=== PATIENT | female | born 1995 | race African-American/Black ===

== ENCOUNTER 2016-12-28 21:30 | Inpatient (IN) | payer BC, OTHER ==
--- NOTE | 2016-12-28 23:59 | PDOC ---
*Physical Exam - Vital Signs Last Vital Signs Temp Pulse Resp BP Pulse Ox 99.5 F 119 H 20 102/45 98 12/28/16 21:31 12/28/16 21:31 12/28/16 21:31 12/28/16 21:31 12/28/16 21:31 - Physical Exam Comments: 12/28/16 23:58 Patient is a 21 year old male Medical Decision Making - Medical Decision Making 12/28/16 23:59 21 year old male
[2016-12-29] MEDS ORDERED: ONDANSETRON 4 MG/2 ML VIAL IVPB ONE (00:45)
[2016-12-29] MEDS ORDERED: SODIUM CHLORIDE 1,000 ML IV STA ×2 (00:45→03:00)
[2016-12-29] MEDS ORDERED: HYDROmorphone HCL CARPU-JECT 1 MG/1 ML DISP.SYRIN IVPUSH ONE ×2 (00:45→04:56)
--- NOTE | 2016-12-29 00:45 | PDOC ---
History of Present Illness - General History Source: Patient Exam Limitations: No Limitations - History of Present Illness Initial Comments: 12/29/16 02:02 Patient is a 21F with no significant medical history here today complaining of lower abdominal pain and diarrhea for the past week. She states that she went to [facility] 6 days ago with the complaints, where she was given an unknown antibiotic. She states that she's been having 6-7 episodes of diarrhea and decreased PO intake. She states that she has vomited twice. She states that starting today, she had an episode of diarrhea with bright red blood in it. <Anthony Talley - Last Filed: 12/29/16 06:27> <Marisela Portillo - Last Filed: 12/29/16 06:36> - General Chief Complaint: Pain Stated Complaint: LOWER ABD PAIN Time Seen by Provider: 12/28/16 23:55 Past History - Past Medical History Other medical history: denies - Psycho/Social/Smoking Cessation Hx Suicidal Ideation: No Smoking History: Never smoked <Anthony Talley - Last Filed: 12/29/16 06:27> <Marisela Portillo - Last Filed: 12/29/16 06:36> - Past Medical History Allergies/Adverse Reactions: Allergies Allergy/AdvReac Type Severity Reaction Status Date / Time No Known Allergies Allergy Verified 12/28/16 21:37 Review of Systems - Review of Systems Constitutional: Yes: Chills, Fever HEENTM: No: Blurred Vision, Recent change in vision Respiratory: No: Cough, Shortness of Breath Cardiac (ROS): No: Chest Pain, Palpitations ABD/GI: Yes: Diarrhea, Nausea, Vomiting. No: Constipated : No: Burning, Dysuria Musculoskeletal: Yes: Back Pain. No: Joint Pain Neurological: Yes: Weakness. No: Headache <Anthony Talley - Last Filed: 12/29/16 06:27> *Physical Exam - Vital Signs Last Vital Signs Temp Pulse Resp BP Pulse Ox 99.5 F 119 H 20 102/45 98 12/28/16 21:31 12/28/16 21:31 12/28/16 21:31 12/28/16 21:31 12/28/16 21:31 - Physical Exam Comments: 12/29/16 02:13 GENERAL: Awake, alert, and fully oriented, in no acute distress HEAD: No signs of trauma, normocephalic, atraumatic EYES: PERRLA, EOMI ENT: Auricles normal inspection, hearing grossly normal, nares patent, dry appearing mucosa LUNGS: No distress, speaks full sentences, clear to auscultation bilaterally HEART: Regular rate and rhythm, normal S1 and S2, no murmurs, rubs or gallops, peripheral pulses normal and equal bilaterally. ABDOMEN: Tender to palpation in suprapubic area. Voluntary guarding, no rebound tenderness EXTREMITIES: Normal inspection, Normal range of motion, no edema. NEUROLOGICAL: Cranial nerves II through XII grossly intact. Normal speech, no focal sensorimotor deficits SKIN: Warm, Dry, normal turgor, no rashes or lesions noted. 12/29/16 03:04 RECTAL: Small hemorrhoid, small amount of blood seen on glove, no masses, nontender <Anthony Talley - Last Filed: 12/29/16 06:27> - Vital Signs Last Vital Signs Temp Pulse Resp BP Pulse Ox 99.5 F 119 H 20 102/45 98 12/28/16 21:31 12/28/16 21:31 12/28/16 21:31 12/28/16 21:31 12/28/16 21:31 <Marisela Portillo - Last Filed: 12/29/16 06:36> ED Treatment Course - LABORATORY CBC & Chemistry Diagram: 12/29/16 01:33 12/29/16 01:33 <Anthony Talley - Last Filed: 12/29/16 06:27> - LABORATORY CBC & Chemistry Diagram: 12/29/16 01:33 12/29/16 01:33 - ADDITIONAL ORDERS Additional order review: Laboratory Results 12/29/16 12/29/16 12/29/16 03:59 02:00 01:33 INR 1.61 H Sodium Potassium Chloride Carbon Dioxide Anion Gap BUN Creatinine Creat Clearance w eGFR Random Glucose Lactic Acid 0.9 Calcium Total Bilirubin AST ALT Alkaline Phosphatase Total Protein Albumin Lipase Urine Color Urine Appearance Urine pH Urine Protein Urine Glucose (UA) Urine Ketones Urine Blood Urine Nitrite Urine Bilirubin Urine Urobilinogen Ur Leukocyte Esterase Urine RBC Urine WBC Ur Epithelial Cells Urine Bacteria Urine HCG, Qual Stool Occult Blood Trace 12/29/16 12/29/16 12/29/16 01:33 01:33 01:33 INR Sodium 132 L Potassium 3.5 Chloride 95 L Carbon Dioxide 24 Anion Gap 13 BUN 8 Creatinine 0.7 Creat Clearance w eGFR > 60 Random Glucose 94 Lactic Acid Calcium 8.0 L Total Bilirubin 0.7 AST 13 L ALT 9 L Alkaline Phosphatase 61 Total Protein 6.8 Albumin 2.8 L Lipase 252 Urine Color Ltyellow Urine Appearance Clear Urine pH 6.0 Urine Protein Negative Urine Glucose (UA) Negative Urine Ketones 1+ H Urine Blood 2+ H Urine Nitrite Negative Urine Bilirubin Negative Urine Urobilinogen Negative Ur Leukocyte Esterase 2+ H Urine RBC 1 Urine WBC 4 Ur Epithelial Cells Rare Urine Bacteria Few Urine HCG, Qual Negative Stool Occult Blood 12/29/16 01:33 RBC 3.73 MCV 86.4 MCHC 32.9 RDW 15.6 MPV 9.4 Neutrophils % 82.1 Lymphocytes % 5.7 L Monocytes % 11.1 H Eosinophils % 1.0 Basophils % 0.1 - Medications Given in the ED: ED Medications Discontinued Medications Generic Name Dose Route Start Last Admin Trade Name Freq PRN Reason Stop Dose Admin Hydromorphone HCl 0.5 mg 12/29/16 00:45 12/29/16 01:31 Dilaudid Injection - IVPUSH 12/29/16 00:46 0.5 mg ONCE ONE Administration Sodium Chloride 1,000 mls @ 1,000 mls/hr 12/29/16 00:45 12/29/16 01:31 Normal Saline - IV 12/29/16 01:44 1,000 mls/hr ASDIR STA Administration Sodium Chloride 1,000 mls @ 1,000 mls/hr 12/29/16 03:00 12/29/16 03:09 Normal Saline - IV 12/29/16 03:59 1,000 mls/hr ASDIR STA Administration Ondansetron HCl 4 mg 12/29/16 00:45 12/29/16 01:31 Zofran Injection IVPB 12/29/16 00:46 4 mg ONCE ONE Administration <Marisela Portillo - Last Filed: 12/29/16 06:36> Medical Decision Making - Medical Decision Making 12/29/16 02:15 21F with no significant medical history here today complaining of abdominal pain. Tachycardic, and tachypneic. Differential diagnosis includes: UTI, pyelonephritis, and colitis. Will evaluate with CBC, CMP, and UA initially. Will give 1L of NS, zofran and dilaudid for pain. 12/29/16 02:43 CBC shows a white count of 12. UA shows 2+ LE but <[address] abdomen/pelvis with contrast ordered. 12/29/16 03:03 Rectal exam showed trace amount of blood and small hemorrhoid. 12/29/16 06:27 CT showed colitis. Will admit to medicine. <Anthony Talley - Last Filed: 12/29/16 06:27> *DC/Admit/Observation/Transfer <Anthony Talley - Last Filed: 12/29/16 06:27> - Discharge Dispostion Admit: Yes <Marisela Portillo - Last Filed: 12/29/16 06:36> Diagnosis at time of Disposition: Colitis, Rectal bleeding - Discharge Dispostion Condition at time of disposition: Guarded
[2016-12-29] MEDS ORDERED: HYDROmorphone HCL CARPU-JECT 1 MG/1 ML DISP.SYRIN ONE ×2 (01:05→06:30)
[2016-12-29] MEDS ORDERED: ONDANSETRON 4 MG/2 ML VIAL ONE (01:05)
--- NOTE | 2016-12-29 01:12 | PDOC ---
Attending Attestation - HPI HPI: The patient is a 21 yo F with no significant past medical history who presents with lower abdominal pain, diarrhea, and vomiting for 1 week. The patient states she went to [facility] on Friday with diarrhea and abdominal pain and was diagnosed with food poisoning and prescribed an antibiotic. The patient states her symptoms have not resolved. The patient reports 6-7 episodes of diarrhea today. She also endorses nausea and vomiting x2. The patient reports she had a fever of 102.3 a few days ago. The patient also reports her most recent episodes of diarrhea today had bright red blood. The patient denies mckeon tarry stools. The patient states she was also prescribed something for pain. The patient denies chest pain, palpitations and lightheadedness. The patient denies subjective chills. - Medical Decision Making Documentation prepared by Brook Stevenson, acting as medical reception specialist for Sadia Kurtz MD, /DO. <Brook Stevenson - Last Filed: 12/29/16 01:36> - Resident Resident Name: Anthony Talley - ED Attending Attestation I have performed the following: I have examined & evaluated the patient, The case was reviewed & discussed with the resident, I agree w/resident's findings & plan, Exceptions are as noted - Physicial Exam PE: GENERAL: Awake, alert, and fully oriented. Appears uncomfortable. +Mild pallor. HEAD: No signs of trauma EYES: PERRLA, EOMI, sclera anicteric, conjunctiva clear ENT: Auricles normal inspection, hearing grossly normal, nares patent, oropharynx clear without exudates. Dry mucosa NECK: Normal ROM, supple, no lymphadenopathy, JVD, or masses LUNGS: Breath sounds equal, clear to auscultation bilaterally. No wheezes, and no crackles HEART: Regular rate and rhythm, normal S1 and S2, no murmurs, rubs or gallops ABDOMEN: Soft, diffusely tender, worse in BLQ, +hyperactive bowel sounds. + Guarding, no rebound. No masses. +B/L CVAT. EXTREMITIES: Normal range of motion, no edema. No clubbing or cyanosis. No cords, erythema, or tenderness NEUROLOGICAL: Cranial nerves II through XII grossly intact. Normal speech, normal gait SKIN: Warm, Dry, normal turgor, no rashes or lesions noted. - Medical Decision Making Pt presents with diarrhea, diffuse abdominal pain for the past few days. Intermittent fever. She was treated with abx for (?) food poisoning at an outside hospital. She cannot recall the name of the antibiotic. She has worsened since then, and now has noted bloody stools. Exam with diffuse abd tenderness. +Small hemorrhoid at the 12 o'clock position, trace blood on rectal exam. UA with no significant findings. Awaiting labs and CT a/p, possible colitis. <Sadia Kurtz - Last Filed: 12/29/16 03:52>
[2016-12-29 01:54] LABS: BASOPHIL 0.1 % (0-2.0); MCH 28.5 pg (25.7-33.7); MCHC 32.9 g/dl (32.0-36.0); MEAN CELL VOLUME 86.4 fl (80-96); MEAN PLT VOLUME 9.4 fl (7.5-11.1); NEUTROPHILS 82.1 % (42.8-82.8); PLATELET COUNT 224 K/MM3 (134-434); RDW 15.6 % (11.6-15.6); WHITE BLOOD COUNT 12.2 K/mm3 (4.0-10.0)
[2016-12-29 01:57] LABS: URINE APPEARANCE CLEAR; URINE BILIRUBIN NEGATIVE (NEGATIVE); URINE BLOOD 2+ (NEGATIVE); URINE COLOR LTYELLOW; URINE GLUCOSE (UA) NEGATIVE (NEGATIVE); URINE KETONE 1+ (NEGATIVE); URINE NITRITE NEGATIVE (NEGATIVE); URINE PROTEIN NEGATIVE (NEGATIVE); URINE UROBILINOGEN NEGATIVE mg/dL (0.2-1.0)
[2016-12-29 02:00] LABS: URINE LEUK ESTERASE 2+ (NEGATIVE)
[2016-12-29 02:09] LABS: URINE BACTERIA FEW /hpf (NONE SEEN); URINE RBC 1 /hpf (0-3); URINE WBC 4 /hpf (3-5)
[2016-12-29 02:11] LABS: INR 1.61 (0.82-1.09); PROTHROMBIN TIME (PATIENT) 17.9 SEC (9.98-11.88)
[2016-12-29 02:21] LABS: ALBUMIN 2.8 g/dl (3.4-5.0); ALK PHOS 61 U/L (45-117); ANION GAP 13 (8-16); BILIRUBIN,TOTAL 0.7 mg/dL (0.2-1.0); CO2 24 mmol/L (21-32); CREATININE 0.7 mg/dL (0.55-1.02); GLUCOSE,RANDOM 94 mg/dL (74-106); SGOT/AST 13 U/L (15-37); SGPT/ALT 9 U/L (12-78); TOT PROT 6.8 g/dl (6.4-8.2)
[2016-12-29 03:55] LABS: PLATELET COMMENT2 NO CLOTTING DETECTED; PLATELET ESTIMATE ADEQUATE (NORMAL)
[2016-12-29] MEDS ORDERED: METRONIDAZOLE 500 MG PREMIXED 100 ML IVPB ONE ×2 (05:56→06:30)
[2016-12-29] MEDS ORDERED: LEVOFLOXACIN 500 MG IVPB 100 ML IVPB ONE ×3 (05:57→14:00)
--- NOTE | 2016-12-29 08:50 | HP ---
CHIEF COMPLAINT: Abdominal pain, hematochezia and fever PCP: HISTORY OF PRESENT ILLNESS: 21 yr old woman with no significant pmhx presents to ED with abdominal pain, dairrhea, hematochezia and fever. Was seen at [facility] on Friday for similar complaint that started after eating at [employer] on friday. symptoms started Friday night, no one else who ate with her has similar complaints. [facility] prescribed 7-day course of antibiotics, which she finished. doesn't recall the name. When her symptoms did not improve, she came to [facility]. Abdominal pain is diffuse and continuous, no exacerbating or alleviating factors. Blood was bright red with wiping and on the outside the stool, at times mixed in, it did not fill the toilet bowl. denies vomiting, sob, previous episodes. ER course was notable for: (1) abd/pelvic CT (2) lactic acid 0.9, bld cx drawn (3) levoquin + flagyl 1 dose (4) no lactic acidosis PAST MEDICAL HISTORY: none PAST SURGICAL HISTORY: Mirena inserted Social History: Smoking: denies Alcohol: socially every 2 months Drugs: denies Family History: denies FM of GI dx, cancers, HTN, DM Allergies No Known Allergies Allergy (Verified 12/28/16 21:37) HOME MEDICATIONS: REVIEW OF SYSTEMS CONSTITUTIONAL: Present:fever, Absent: chills, diaphoresis, generalized weakness, malaise, loss of appetite, weight change HEENT: Absent: rhinorrhea, nasal congestion, throat pain, throat swelling, difficulty swallowing, mouth swelling, CARDIOVASCULAR: Absent: chest pain, syncope, palpitations, irregular heart rate, lightheadedness , peripheral edema RESPIRATORY: Absent: cough, shortness of breath GASTROINTESTINAL: Present: abdominal pain, diarrhea, hematochezia Absent: abdominal distension, nausea, vomiting, constipation, melena, GENITOURINARY: Absent: dysuria, frequency, urgency, hesitancy, hematuria, flank pain, genital pain SKIN: Absent: rash, itching, pallor NEUROLOGIC: Absent: headache, focal weakness, dizziness, PHYSICAL EXAMINATION Vital Signs - 24 hr 12/29/16 07:42 Temperature 98.6 F Pulse Rate [ 90 Left] Respiratory 18 Rate Blood Pressure 106/60 [Left Arm] O2 Sat by Pulse 98 Oximetry (%) GENERAL: Awake, alert, and fully oriented, in no acute distress. ABDOMEN: Soft, ttp in right and left lower quadrants and suprapubically, not distended, normoactive bowel sounds, no guarding, no rebound, no masses. obturator and psoas negative ASSESSMENT/PLAN: 21 y old woman presents with hematochezia, dairrgea and abdominal pain admitted for sepsis likely due to colitis. #Colitis - inflammatory changes seen on abd/pelvis CT, clinically withe diarrhea /abd pain, hematochezia + fever + tachycardia - likely infectious in nature due to onset after meal/fever, r/o stool pathogens , send stool cultures, bld cultures pending - IVF @ NS 150cc/hr - tylenol 650mg po for fevers/pain, will escalate pain meds if needed - levaquin 500mg IVPB Q24hr, + flagyl 500mg q8hr - [place] [facility] is closed, unable to obtain abx/meds, will call again tomorrow #Anemia, normocytic - pt is not menstruating for past yr since mirena, unlikely that this is her baseline, will try to obtain records from [facility] to compare trend - trend CBC, monitor for acute drop in H/H due to hematochezia, get type and screen with next blood draw #Leuk 3+ in urine - pt denies symptoms of UTI, could be due to dehydration, will repeat u/a - urine cultures will be obtained after abx, but she will be on abx for colitis which should cover her anyway for any UTI DVT: heparin SQ 5000 units BID Diet: start with clears, advance as tolerated Visit type - Emergency Visit Emergency Visit: Yes ED Registration Date: 12/29/16 Care time: The patient presented to the Emergency Department on the above date and was hospitalized for further evaluation of their emergent condition. - New Patient This patient is new to me today: Yes Date on this admission: 12/29/16 - Critical Care Critical Care patient: No
[2016-12-29] MEDS ORDERED: ACETAMINOPHEN 650 MG/20.3 ML ORAL SOLUTION (CUPS) PO ONE (09:30)
[2016-12-29] MEDS: SODIUM CHLORIDE 1,000 ML IV SCH ×3 (09:49→23:27)
[2016-12-29] MEDS: HEPARIN NA (PORCINE) 5,000 UNITS/ML 1ML VIAL SQ SCH ×2 (10:15→21:29)
--- NOTE | 2016-12-29 10:30 | HP ---
CHIEF COMPLAINT: diarrhea for 1 week PCP: HISTORY OF PRESENT ILLNESS: 21 y/o F with no significant PMH presents to ED with diarrhea for 1 week. As per pt, she ate at [employer] last (12/19). On Friday, she started having bloody bowel movements (7-8x daily), and felt nauseous during this time. She noted BRB on toilet paper when wiping and in toilet bowl. On Friday, pt went to [facility] since her symptoms had not subsided, and was dx there with food poisoning. She was discharged with antibiotics and pain medications, which she took for the subsequent 3 days following. This past (12/26), pt began to have cramping in her lower abdomen which was constant and a 10/10. Pt's LMP was 1 year ago, she is currently on Mirena IUD. ER course was notable for: (1) CT abdomen/pelvis: suggestive of colitis (2) Dilaudid 0.5mg IVP given twice (3) Levaquin, Flagyl for broad spectrum coverage Recent Travel: no PAST MEDICAL HISTORY: none PAST SURGICAL HISTORY: none Social History: Smoking: denies Alcohol: socially; once every 2 months, 2 drinks Drugs: denies Family History: none Allergies No Known Allergies Allergy (Verified 12/28/16 21:37) HOME MEDICATIONS: REVIEW OF SYSTEMS CONSTITUTIONAL: +tactile fever Absent: fever, chills, diaphoresis, generalized weakness, malaise, loss of appetite, weight change HEENT: Absent: rhinorrhea, nasal congestion, throat pain, throat swelling, difficulty swallowing, mouth swelling, ear pain, eye pain, visual changes CARDIOVASCULAR: Absent: chest pain, syncope, palpitations, irregular heart rate, lightheadedness , peripheral edema RESPIRATORY: Absent: cough, shortness of breath, dyspnea with exertion, orthopnea, wheezing, stridor, hemoptysis GASTROINTESTINAL: +abdominal pain, +diarrhea, +hematochezia Absent: abdominal pain, abdominal distension, nausea, vomiting, diarrhea, constipation, melena, hematochezia GENITOURINARY: Absent: dysuria, frequency, urgency, hesitancy, hematuria, flank pain, genital pain MUSCULOSKELETAL: Absent: myalgia, arthralgia, joint swelling, back pain, neck pain SKIN: Absent: rash, itching, pallor HEMATOLOGIC/IMMUNOLOGIC: Absent: easy bleeding, easy bruising, lymphadenopathy, frequent infections ENDOCRINE: Absent: unexplained weight gain, unexplained weight loss, heat intolerance, cold intolerance NEUROLOGIC: Absent: headache, focal weakness or paresthesias, dizziness, unsteady gait, seizure, mental status changes, bladder or bowel incontinence PSYCHIATRIC: Absent: anxiety, depression, suicidal or homicidal ideation, hallucinations. PHYSICAL EXAMINATION Vital Signs - 24 hr 12/29/16 07:42 Temperature 98.6 F Pulse Rate [ 90 Left] Respiratory 18 Rate Blood Pressure 106/60 [Left Arm] O2 Sat by Pulse 98 Oximetry (%) GENERAL: Awake, alert, and fully oriented, in no acute distress. HEAD: Normal with no signs of trauma. EYES: Pupils equal, round and reactive to light, extraocular movements intact, sclera anicteric, conjunctiva clear. EARS, NOSE, THROAT: oropharynx clear without exudates. Moist mucous membranes. NECK: Normal range of motion, supple without lymphadenopathy, no JVD LUNGS: Breath sounds equal, clear to auscultation bilaterally. No wheezes, and no crackles. No accessory muscle use. HEART: Regular rate and rhythm, normal S1 and S2 without murmur, rub or gallop. ABDOMEN: +BS in all quadrants, tender to palpation in RLQ and LLQ, no distension , warm, no voluntary guarding or rigidity MUSCULOSKELETAL: Normal range of motion at all joints. No bony deformities or tenderness. No CVA tenderness. UPPER EXTREMITIES: 2+ radial pulses, warm, well-perfused. No cyanosis. No clubbing. No peripheral edema. LOWER EXTREMITIES: 2+ posterior tibial pulses, warm, well-perfused. No calf tenderness. No peripheral edema. NEUROLOGICAL: Cranial nerves II-XII intact. RECTAL EXAM: minor amount of BRB on glove, I did not note any masses in rectum IMAGING -CT abdomen/pelvis: suggestive of colitis ASSESSMENT/PLAN: 21 y/o F with no significant PMH presents to ED with 1 week of diarrhea. Pt admitted for sepsis secondary to possible infectious colitis. 1. Sepsis secondary to possible infectious colitis -Tachycardia on admission (119HR), leukocytosis (12.2), febrile after admission (102F) -CT: confirmed colitis, infectious cause: food-borne most likely, sx began after meal -Received Levaquin, Flagyl in ED for broad-spec coverage -Determine infectious etiology- EHEC, Shigella, Salmonella to treat accordingly -F/u stool cx to determine etiology -can f/u with GI as outpt after d/c 2. asymptomatic, +leukocyte esterase on UA -Will send urine cx, though most likely will be neg since abx have already been started 3. BRBPR -F/u CBC -Currently: 10.6/32.2 F/E/N -IV NS 150 cc/hr -monitor electrolytes -clear liquid diet Visit type - Emergency Visit Emergency Visit: Yes ED Registration Date: 12/29/16 Care time: The patient presented to the Emergency Department on the above date and was hospitalized for further evaluation of their emergent condition. - New Patient This patient is new to me today: Yes Date on this admission: 12/29/16 - Critical Care Critical Care patient: No
[2016-12-29 11:24] LABS: MCHC 33.7 g/dl (32.0-36.0); MEAN CELL VOLUME 86.1 fl (80-96); MEAN PLT VOLUME 8.8 fl (7.5-11.1); PLATELET COUNT 204 K/MM3 (134-434); RDW 15.7 % (11.6-15.6); WHITE BLOOD COUNT 8.3 K/mm3 (4.0-10.0)
[2016-12-29 11:40] VITALS: BMI 19.5
[2016-12-29] MEDS ORDERED: oxyCODONE HCL 5 MG TABLET PO ONE (13:00)
[2016-12-29] MEDS ORDERED: ACETAMINOPHEN 325 MG TABLET (FP) PO ONE (13:00)
[2016-12-29] MEDS: metroNIDAZOLE 250 MG TABLET PO SCH ×2 (13:01→21:28)
--- NOTE | 2016-12-29 13:25 | PN ---
Teaching Attending Note Name of Resident: Gloria Daigle ATTENDING PHYSICIAN STATEMENT I saw and evaluated the patient. I reviewed the resident's note and discussed the case with the resident. I agree with the resident's findings and plan as documented. SUBJECTIVE:21yo F with no PMH presenting with bloody diarrhea x 9 days. 7-8 watery large loose BM. went to [facility] last week and was given abx which she took for 1 week with some mild relief however 4 days ago diarrhea became bloody assoc with cramping and abdominal pain. pt ate a [employer] the day prior to symptoms start. denies hx of diarrhea/constipation, denies weight loss, CP, SOB < fever, chills, abdominal pain worse at night, arthralgias, skin lesions, eye infections, no recent travel or camping. no sick contacts. LMP a year ago as currently has IUD. last saw PMD 3 weeks ago with routine lab work normal per pt. as per mother in the room, she did not have issues gaining weight as a child and met milestones. no family hx of autoimmune diseases, UC or crohns OBJECTIVE: Last Vital Signs Temp Pulse Resp BP Pulse Ox 102.4 F H 120 H 18 145/65 98 12/29/16 10:00 12/29/16 10:00 12/29/16 10:00 12/29/16 10:00 12/29/16 10:00 General lethargic CV S1 S2 tachycardic Lungs CTA B/L no wheezing/rales/rhonchi Abdomen soft, diffusely tender, mild distention, hypoactive BS rectal deferred ASSESSMENT AND PLAN: 21yo F wtih no PMH presented with persistent bloody diarrhea 1. Bloody diarrhea- medicine admission. Tm 102.4. since pt is having 7-8BM/day, bloody and persisting >1week will start abx at this time. prelim read on CT consistent with colitis, will await for official read. start Levaquin/Flagyl, IVF, clear liquid diet. check Bcx, stool Cx, fecal leukocytes, cdiff. concern for IBD due to her age, however no risk factors associated with it. check ESR/ CRP 2. Acute blood loss anemia- BRBPR, some dilutional component. will repeat in the evening. check iron studies. will call pmd tomorrow to obtain baseline labs to compare. 3. Hematuria- due to infection vs dehydration. RBC does not correlate. check CK to r/o rhabdo 4. DVT ppx- SCD. hold pharmacologic in setting of anemia
[2016-12-29] MEDS ORDERED: oxyCODONE HCL 5 MG TABLET PO PRN (15:33)
[2016-12-29] MEDS ORDERED: morphine CARPU-JECT 2 MG/1 ML DISP.SYRIN IVPUSH PRN (17:16)
[2016-12-29] MEDS: morphine CARPU-JECT 4 MG/1 ML DISP.SYRIN IVPUSH PRN ×2 (17:27→21:40)
[2016-12-29 17:42] LABS: FERRITIN 253.876 ng/ml (6.9-282.5)
[2016-12-29 18:07] LABS: URINE APPEARANCE CLEAR; URINE BILIRUBIN NEGATIVE (NEGATIVE); URINE BLOOD 1+ (NEGATIVE); URINE COLOR YELLOW; URINE GLUCOSE (UA) NEGATIVE (NEGATIVE); URINE KETONE 1+ (NEGATIVE); URINE LEUK ESTERASE 1+ (NEGATIVE); URINE NITRITE NEGATIVE (NEGATIVE); URINE PROTEIN NEGATIVE (NEGATIVE); URINE UROBILINOGEN NEGATIVE mg/dL (0.2-1.0)
[2016-12-29 18:10] LABS: URINE MUCUS RARE; URINE RBC 1 /hpf (0-3); URINE WBC 3 /hpf (3-5)
[2016-12-29 18:41] LABS: MCH 28.8 pg (25.7-33.7); MCHC 33.5 g/dl (32.0-36.0); MEAN PLT VOLUME 9.6 fl (7.5-11.1); PLATELET COUNT 195 K/MM3 (134-434); RDW 15.3 % (11.6-15.6); WHITE BLOOD COUNT 6.9 K/mm3 (4.0-10.0)
[2016-12-29 19:13] LABS: DOHLE BODIES 2+; HYPOCHROMIA FEW; PLATELET ESTIMATE ADEQUATE (NORMAL); POLYCHROMASIA FEW; TOXIC GRANULATION 1+
[2016-12-29] MEDS: ACETAMINOPHEN 325 MG TABLET (FP) PO PRN (21:28)
[2016-12-30] MEDS: morphine CARPU-JECT 4 MG/1 ML DISP.SYRIN IVPUSH PRN ×3 (04:53→21:21)
[2016-12-30] MEDS: metroNIDAZOLE 250 MG TABLET PO SCH ×3 (06:15→21:20)
[2016-12-30 07:10] LABS: MCH 29.3 pg (25.7-33.7); MCHC 34.1 g/dl (32.0-36.0); MEAN CELL VOLUME 85.8 fl (80-96); MEAN PLT VOLUME 9.7 fl (7.5-11.1); PLATELET COUNT 196 K/MM3 (134-434); RDW 15.9 % (11.6-15.6); WHITE BLOOD COUNT 9.1 K/mm3 (4.0-10.0)
[2016-12-30 07:35] LABS: ANION GAP 8 (8-16); CALCIUM 7.5 mg/dL (8.5-10.1); CO2 24 mmol/L (21-32); CREATININE 0.5 mg/dL (0.55-1.02); GLUCOSE,RANDOM 120 mg/dL (74-106)
[2016-12-30] MEDS: LEVOFLOXACIN 500 MG IVPB 100 ML IVPB SCH (09:13)
[2016-12-30] MEDS: HEPARIN NA (PORCINE) 5,000 UNITS/ML 1ML VIAL SQ SCH ×2 (09:14→21:19)
[2016-12-30 09:35] LABS: METAMYELOCYTE 4 % (0-2); PLATELET ESTIMATE ADEQUATE (NORMAL)
[2016-12-30] MEDS ORDERED: morphine CARPU-JECT 4 MG/1 ML DISP.SYRIN IVPUSH STA (10:30)
[2016-12-30] MEDS ORDERED: ONDANSETRON 4 MG/2 ML VIAL IVPUSH PRN (11:57)
--- NOTE | 2016-12-30 12:54 | PN ---
Teaching Attending Note Name of Resident: Barney Garcia ATTENDING PHYSICIAN STATEMENT I saw and evaluated the patient. I reviewed the resident's note and discussed the case with the resident. I agree with the resident's findings and plan as documented. SUBJECTIVE:called by RN that pt is having excruciating abdominal pain. pt examined c/o diffuse pain worse in the RLQ/LLQ. also noted to abdomen to be more distended then yesterday. denies CP, SOB, fever, chills, N/V continues to have multiple loose stools, non-bloody OBJECTIVE: Last Vital Signs Temp Pulse Resp BP Pulse Ox 99.1 F 109 H 18 104/72 98 12/30/16 06:00 12/30/16 06:00 12/30/16 06:00 12/30/16 06:00 12/29/16 21:00 General NAD CV S1 S2 tachycardic Lungs CTA B/L no wheezing/rales/rhonchi Abdomen soft, diffusely tender, mild distention, hypoactive BS rectal deferred ASSESSMENT AND PLAN: 21yo F wtih no PMH presented with persistent bloody diarrhea 1. Bloody diarrhea- called by radiologist that there is concern for pneumoperitoneum. in setting of sudden onset abdominal pain that pt is devloping or has pneumoperitoneum. stat CT abdomen/pelvis ordered. d/w surgery about concern and will follow up results. continues to be febrile with diarrhea however diarrhea is improving. NPO for possible surgery. cont Levaquin/Flagyl day 2. IVF. pain and nausea control. Cx pending 2. Acute blood loss anemia- BRBPR, some dilutional component. now stable. iron panel pending. 3. Hematuria- due to infection vs dehydration. RBC does not correlate. CK normal. repeat UA shows less hematuria 4. DVT ppx- SCD. hold pharmacologic in setting of anemia CC TIME 40 minutes. The care of this patient involved high complexity decision making to prevent further life threatening deterioration of the patient's condition and/or to evalute & treat vital organ system(s) failure or risk of failure.
[2016-12-30] MEDS: SODIUM CHLORIDE 1,000 ML IV SCH ×2 (14:18→20:30)
--- NOTE | 2016-12-30 15:48 | PN ---
Physical Exam: SUBJECTIVE: Patient seen and examined at bedside. Pt endorses mild, diffuse abdominal pain and is no longer nauseous. She is still having loose bowel movements with clotted blood mixed in, however number of episodes is much improved from yesterday. Denies SOB, chest or extremity pain. OBJECTIVE: Vital Signs Period Temp Pulse Resp BP Sys/Tsang Pulse Ox Last 24 Hr 99.1 F-102.4 F 85-123 18-18 99-127/66-74 98 GENERAL: The patient is awake, alert, and fully oriented, in mild distress HEAD: Normal with no signs of trauma. EYES: PERRL, extraocular movements intact, sclera anicteric, conjunctiva clear. NECK: Trachea midline, supple. LUNGS: Breath sounds equal, clear to auscultation bilaterally, no wheezes, no crackles, no accessory muscle use. HEART: Regular rate and rhythm, S1, S2 without murmur, rub or gallop. ABDOMEN: Soft, mildly tender, mildly distended, normoactive bowel sounds, no guarding, no rebound EXTREMITIES: 2+ posterior tibial pulses, warm, well-perfused, no edema. NEUROLOGICAL: Cranial nerves II through XII grossly intact. Laboratory Results - last 24 hr 12/29/16 12/29/16 12/29/16 16:30 17:39 18:29 WBC 6.9 RBC 3.27 L Hgb 9.4 L Hct 28.1 L MCV 86.0 MCH 28.8 MCHC 33.5 RDW 15.3 Plt Count 195 MPV 9.6 Neutrophils % 39.0 L D Lymphocytes % 10.0 D Monocytes % 21.0 H D Eosinophils % 1.0 Basophils % Band Neutrophils 29.0 H Metamyelocytes Differential Comment Toxic Granulation 1+ Dohle Bodies 2+ Platelet Estimate Adequate Platelet Comment No clumping noted Polychromasia Few Hypochromic-Microcytic Few Sodium Potassium Chloride Carbon Dioxide Anion Gap BUN Creatinine Random Glucose Calcium Ferritin 253.876 Creatine Kinase 69 Urine Color Yellow Urine Appearance Clear Urine pH 6.0 Ur Specific Leonard 1.015 Urine Protein Negative Urine Glucose (UA) Negative Urine Ketones 1+ H Urine Blood 1+ H Urine Nitrite Negative Urine Bilirubin Negative Urine Urobilinogen Negative Ur Leukocyte Esterase 1+ H Urine RBC 1 Urine WBC 3 Ur Epithelial Cells Few Urine Mucus Rare Blood Type Antibody Screen 12/29/16 12/29/16 12/30/16 18:29 19:13 06:00 WBC 9.1 D RBC 3.29 L Hgb 9.6 L Hct 28.3 L MCV 85.8 MCH 29.3 MCHC 34.1 RDW 15.9 H Plt Count 196 MPV 9.7 Neutrophils % 56.0 D Lymphocytes % 12.0 Monocytes % 14.0 H Eosinophils % 1.0 Basophils % 1.0 D Band Neutrophils 12.0 H D Metamyelocytes 4 H Differential Comment Manual diff done Toxic Granulation Dohle Bodies Platelet Estimate Adequate Platelet Comment Polychromasia Hypochromic-Microcytic Sodium Potassium Chloride Carbon Dioxide Anion Gap BUN Creatinine Random Glucose Calcium Ferritin Creatine Kinase Urine Color Urine Appearance Urine pH Ur Specific Leonard Urine Protein Urine Glucose (UA) Urine Ketones Urine Blood Urine Nitrite Urine Bilirubin Urine Urobilinogen Ur Leukocyte Esterase Urine RBC Urine WBC Ur Epithelial Cells Urine Mucus Blood Type O POSITIVE O POSITIVE Antibody Screen Negative 12/30/16 06:00 WBC RBC Hgb Hct MCV MCH MCHC RDW Plt Count MPV Neutrophils % Lymphocytes % Monocytes % Eosinophils % Basophils % Band Neutrophils Metamyelocytes Differential Comment Toxic Granulation Dohle Bodies Platelet Estimate Platelet Comment Polychromasia Hypochromic-Microcytic Sodium 138 Potassium 3.2 L Chloride 106 D Carbon Dioxide 24 Anion Gap 8 BUN 4 L D Creatinine 0.5 L D Random Glucose 120 H D Calcium 7.5 L Ferritin Creatine Kinase Urine Color Urine Appearance Urine pH Ur Specific Leonard Urine Protein Urine Glucose (UA) Urine Ketones Urine Blood Urine Nitrite Urine Bilirubin Urine Urobilinogen Ur Leukocyte Esterase Urine RBC Urine WBC Ur Epithelial Cells Urine Mucus Blood Type Antibody Screen Active Medications Generic Name Dose Route Start Last Admin Trade Name Li PRN Reason Stop Dose Admin Acetaminophen 650 mg 12/29/16 09:52 12/29/16 21:28 Tylenol - PO 650 mg Q4H PRN Administration FEVER OR PAIN Heparin Sodium (Porcine) 5,000 unit 12/29/16 10:00 12/30/16 09:14 Heparin - SQ 5,000 unit BID PHIL Administration Sodium Chloride 1,000 mls @ 150 mls/hr 12/29/16 09:00 12/30/16 14:18 Normal Saline - IV 150 mls/hr ASDIR PHIL Administration Levofloxacin 100 mls @ 100 mls/hr 12/30/16 10:00 12/30/16 09:13 Levaquin 500 Mg Premixed Ivpb - IVPB 100 mls/hr DAILY PHIL Administration Metronidazole 500 mg 12/29/16 14:00 12/30/16 14:18 Flagyl - PO 500 mg TID PHIL Administration Morphine Sulfate 2 mg 12/30/16 10:26 Morphine Injection - IVPUSH Q4H PRN PAIN Ondansetron HCl 4 mg 12/30/16 11:57 12/30/16 12:25 Zofran Injection IVPUSH 12/30/16 23:58 4 mg Q4H PRN Administration NAUSEA AND/OR VOMITING Oxycodone HCl 5 mg 12/29/16 15:33 Roxicodone - PO Q4H PRN PAIN ASSESSMENT/PLAN: 21 y/o F with no significant PMH presents to ED with 1 week of diarrhea. Pt admitted for sepsis secondary to possible infectious colitis. # Sepsis secondary to possible infectious colitis -Stool cx: no growth, Campylobacter still pending -Stat CT abdomen/pelvis: no evidence of pneumoperitoneum -Zofran PRN -Continue Levaquin 500mg IVPB daily, Flagyl 500mg PO q8H (Today is Day2) 2. asymptomatic, +leukocyte esterase on UA -F/u urine cx 3. BRBPR -improved 9.8/28.3 -F/u CBC F/E/N -IV NS 150 cc/hr -monitor electrolytes -clear liquid diet Visit type - Emergency Visit Emergency Visit: No - New Patient This patient is new to me today: No - Critical Care Critical Care patient: No
[2016-12-30] MEDS: ACETAMINOPHEN 325 MG TABLET (FP) PO PRN (18:21)
--- NOTE | 2016-12-30 18:41 | CONSULT ---
- Consultation REQUESTING PROVIDER: Yaquelin Segura MD CONSULT REQUEST: We have been asked to surgically evaluate this patient for abdominal pain PCP:Yaquelin Segura HISTORY OF PRESENT ILLNESS: CTSP for evaluation of diffuse abdominal pain and possible pneumoperitoneum on CT scanning done on admission; patient presented to another institution and was started on antibiotics for food poisoning/colitis ; came here with similar c/o's # days later and bloody liquid stools which have been improving; initial CT showed coloitis and ? free air; f/u CT did not ; I reviewed this w/ Dr. Zavaleta. PMHx: none PSHx: none Allergies Allergy/AdvReac Type Severity Reaction Status Date / Time No Known Allergies Allergy Verified 12/28/16 21:37 PHYSICAL EXAM: GENERAL: Awake, alert, and fully oriented, in no acute distress. HEAD: Normal with no signs of trauma. EYES: sclera anicteric, conjunctiva clear. NECK: Normal ROM, supple without lymphadenopathy, JVD, or masses. ABDOMEN: Soft, globally tender, not distended, normoactive bowel sounds, voluntary guarding, no rebound, no masses. No organomegaly. No hernias MUSCULOSKELETAL: Normal ROM at all joints. No bony deformities or tenderness. No CVA tenderness. UPPER EXTREMITIES: 2+ pulses, warm, well-perfused. No cyanosis. Cap refill <2 seconds. No peripheral edema. LOWER EXTREMITIES: 2+ pulses, warm, well-perfused. No calf tenderness. No peripheral edema. NEUROLOGICAL: Normal speech, gait not observed. PSYCH: Cooperative. Good eye contact. Appropriate mood and affect. SKIN: Warm, dry, normal turgor, no rashes or lesions noted. Vital Signs Temperature 101.5 F H 12/30/16 18:36 Pulse Rate 107 H 12/30/16 18:36 Respiratory Rate 18 12/30/16 18:36 Blood Pressure 101/57 12/30/16 18:36 O2 Sat by Pulse Oximetry (%) 98 12/29/16 21:00 Lab Results WBC 9.1 K/mm3 (4.0-10.0) D 12/30/16 06:00 RBC 3.29 M/mm3 (3.60-5.2) L 12/30/16 06:00 Hgb 9.6 GM/dL (10.7-15.3) L 12/30/16 06:00 Hct 28.3 % (32.4-45.2) L 12/30/16 06:00 MCV 85.8 fl (80-96) 12/30/16 06:00 MCHC 34.1 g/dl (32.0-36.0) 12/30/16 06:00 RDW 15.9 % (11.6-15.6) H 12/30/16 06:00 Plt Count 196 K/MM3 (134-434) 12/30/16 06:00 Sodium 138 mmol/L (136-145) 12/30/16 06:00 Potassium 3.2 mmol/L (3.5-5.1) L 12/30/16 06:00 Chloride 106 mmol/L (98-107) D 12/30/16 06:00 Carbon Dioxide 24 mmol/L (21-32) 12/30/16 06:00 Anion Gap 8 (8-16) 12/30/16 06:00 BUN 4 mg/dL (7-18) L D 12/30/16 06:00 Creatinine 0.5 mg/dL (0.55-1.02) L D 12/30/16 06:00 Random Glucose 120 mg/dL (74-106) H D 12/30/16 06:00 Calcium 7.5 mg/dL (8.5-10.1) L 12/30/16 06:00 Blood Type O POSITIVE 12/29/16 19:13 Antibody Screen Negative 12/29/16 18:29 INR 1.61 (0.82-1.09) H 12/29/16 01:33 CT a/p x 2 reviewed IMP: colitis; no evidence of an acute surgical abdomen/no indication for surgical intervention at this time PLAN: NPO/IVF; rest of management per primary care team; suggest GI evaluation; will f/u. Luis Alberto Cotton MD FACS Visit type - Case Type Case Type: ED Admission - Emergency Emergency Visit: Yes ED Registration Date: 12/29/16 Care time: The patient presented to the Emergency Department on the above date and was hospitalized for further evaluation of their emergent condition. - New patient This patient is new to me today: Yes Date on this admission: 12/30/16
[2016-12-30] MEDS ORDERED: POTASSIUM CHLORIDE ORAL LIQUID 20 MEQ/15 ML PO ONE (19:21)
[2016-12-30] MEDS ORDERED: POTASSIUM CHLORIDE 40 MEQ in SODIUM CHLORIDE 1,000 ML IVPB SCH (19:30)
[2016-12-31] MEDS: ACETAMINOPHEN 325 MG TABLET (FP) PO PRN (01:13)
[2016-12-31] MEDS: morphine CARPU-JECT 4 MG/1 ML DISP.SYRIN IVPUSH PRN ×5 (03:46→21:51)
[2016-12-31] MEDS: SODIUM CHLORIDE 1,000 ML IV SCH ×4 (03:48→22:03)
[2016-12-31 06:06] LABS: SERUM IRON 13 ug/dL (27-159); TOTAL IRON BINDING CAPACITY 169 ug/dL (250-450); UIBC 156 ug/dL (131-425)
[2016-12-31] MEDS: metroNIDAZOLE 250 MG TABLET PO SCH ×2 (06:18→13:08)
[2016-12-31 07:48] LABS: BASOPHIL 0.2 % (0-2.0); MCH 28.7 pg (25.7-33.7); MCHC 33.2 g/dl (32.0-36.0); MEAN CELL VOLUME 86.3 fl (80-96); MEAN PLT VOLUME 10.1 fl (7.5-11.1); PLATELET COUNT 199 K/MM3 (134-434); WHITE BLOOD COUNT 11.5 K/mm3 (4.0-10.0)
[2016-12-31 08:11] LABS: ANION GAP 7 (8-16); CALCIUM 7.6 mg/dL (8.5-10.1); CO2 25 mmol/L (21-32); CREATININE 0.5 mg/dL (0.55-1.02); GLUCOSE,RANDOM 85 mg/dL (74-106); MAGNESIUM 2.1 mg/dL (1.8-2.4)
[2016-12-31] MEDS: LEVOFLOXACIN 500 MG IVPB 100 ML IVPB SCH (09:34)
[2016-12-31] MEDS: HEPARIN NA (PORCINE) 5,000 UNITS/ML 1ML VIAL SQ SCH ×2 (09:34→21:50)
--- NOTE | 2016-12-31 11:55 | PN ---
Progress Note (short form) - Note Progress Note: Attending Surgeon BM's more formed and less frequent; tolerating liquids VSS low grade fluctuating temp abdomen-soft; minimal global ttp; no guarding; no signs of an acute surgical abdomen WBC 11.5 IMP:colitis PLAN: Continue same; no indication for surgical intervention at this time. Luis Alberto Cotton MD FACS
--- NOTE | 2016-12-31 15:10 | CON.GI ---
Consult Consult Specialty:: GI - For Dr. Jarvis Referred by:: Hospitalist Service Reason for Consultation:: Abdominal pain / diarrhea - History of Present Illness Chief Complaint: I have been having abdominal cramps and diarrhea History of Present Illness: 21F admitted through [facility] ER for evaluation of blood diarrhea and abdominal pain. She was in her usual state of healh up until 12/21 when she developed abdomial pain / cramping associated with bloody diarrhea. She alludes to eating a chicken bowl from [employer] the evening before and that the abdominal pain began 11am that Friday. 12/22, given persistent abdominal pain / blood diarrhea, she went to the [facility] system ER and describes being told she had food poisoning, was prescribed an antibiotic (she does not recall the name) and had stool collected. She was discharged home and she believes that she finished her anibiotics this past or fri. Syptoms did not seem to improve ad she felt as though her lower abdomen was swollen prompting evaluation at the [facility] ER. In ER, triage vitals 12/28 revealed T:99.5 P: 119 BP : 102/45. Initial Hgb was 10.6 as well. She had a CT scan of the abdomen and pelvis 12/29/16 that revealed a diffuse alonso proctocolitis and there was also an addendum describing a subtle focus of free air in the upper abdomen with free fluid in the area as well. This was a contrast study with IV contrast only. Ms. Stone was evaluated by surgery and a follow-up CT scan of the abdomen and pelvis without contrast was performed 12/30. It failed to reveal free air with other findings remaining unchanged. She continues to have blood diarrhea and fevers. She denies recent travel, recent sick contacts with similar complaints, similar problems in the past, recent antibiotic use, family history of inflammatory bowel disease. There is o family history of colorectal cancer or other GI malignancy. She states that 2 weeks prior to the onset of her symptoms she had a physical at the [facility] including blood work. 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 denies: Unintentional Wgt. Loss Cardiovascular: denies: Chest Pain Respiratory: denies: SOB Gastrointestinal: reports: Abdominal Pain, Diarrhea, Rectal Bleeding. denies: Constipation, Melena Physical Exam-GI Vital Signs: Vital Signs Temperature 100.2 F H 12/31/16 1500 Pulse Rate 100 H 12/31/16 1500 Respiratory Rate 17 12/31/16 1500 Constitutional: Yes: Calm Eyes: No: Sclera Icterus Cardiovascular: Yes: Regular Rate and Rhythm. No: Murmur Respiratory: Yes: CTA Bilaterally Gastrointestinal Inspection: Yes: Scars (decorative umbilical ring scar) ...Auscultate: Yes: Normoactive Bowel Sounds ...Palpate: Yes: Tenderness (diffusely), Tenderness, Rebound (diffusely) ...Percussion: No: Tympanitic ...Rectal Exam: Yes: Other (No external lesions, no masses, trace light brown stool, guaiac positive) Edema: No Integumentary: No: Rash Neurological: Yes: Alert, Oriented Labs: CBC, BMP 12/31/16 06:00 12/31/16 06:00 INR, PTT INR 1.61 (0.82-1.09) H 12/29/16 01:33 Hepatic Panel Total Bilirubin 0.7 mg/dL (0.2-1.0) 12/29/16 01:33 AST 13 U/L (15-37) L 12/29/16 01:33 ALT 9 U/L (12-78) L 12/29/16 01:33 Alkaline Phosphatase 61 U/L (45-117) 12/29/16 01:33 Albumin 2.8 g/dl (3.4-5.0) L 12/29/16 01:33 Imaging - Results Cat Scan: Report Reviewed, Image Reviewed Problem List - Problems (1) Colitis Assessment/Plan: with acute diarrhea: Differetial would still include infectious etiology such as food poisoning / infectious colitis however symptoms continue to persist for quite some time now since to suspected meal ([employer] chicken bowl 2 fridays prior). An atypical presentation of IBD would need to be considered as well given the persistence of symptoms, fevers. There was also a question of a focus of air in the upper abdomen on initial CT scan that was not there on repeat study. i spoke with Dr. King about this who felt that there was no need for surgical intervention and had reviewed the CT scans with radiology and the initial area of free air is in question. For now I would advise the following: - Daily labs, check CRP - Obtain stool studies/blood work that was obtained at [facility]. Current stool culture is negative however she has also been on antibiotics - Obtain baseline bloodwork from the place where she receives her primary care - Awaiting remainder of stool studies - Ordered Shiga producing E. Coli stool study - Ordered IBD serologies - Explained the need for possible flex sig with Ms. Stone and her mother who was present at bedside - ID evaluation requested. Rubiainluis Abx for now. Ms. Stone may have been given just flagyl upon discharge from the [facility] ER Code(s): K52.9 - NONINFECTIVE GASTROENTERITIS AND COLITIS, UNSPECIFIED
--- NOTE | 2016-12-31 16:03 | PN ---
Progress Note (short form) - Note Progress Note: upon further questioning, Pepper states that she chronically has 3-4 non diarrhea bowel movements per day and that sometimes they awaken her from sleep. ? if she has some underlying more chronic condition that has now flared. Problem List - Problems (1) Colitis Code(s): K52.9 - NONINFECTIVE GASTROENTERITIS AND COLITIS, UNSPECIFIED
--- NOTE | 2016-12-31 16:28 | PN ---
Progress Note (short form) - Note Progress Note: ID consult dictated imp/reccd colitis- day #3 levaquin/flagyl ill since 12/21 was on flagyl and immodiurm as outpt from [facility] diffuse colitis on ct scan stool cdiff negative stool culture negative as well blood in stools has resolved suspect IBD, less likely infectious (has at baseline 3-4 BMS daily, including at night) continue antibiotics-switch to rocephin/flagyl continue IVF hiv testing (patient agrees) esr/crp stool for ova and parasites gi- ?flex sig doubt viral but will send rotavirus and norovirus PCR records from [facility] requested Problem List - Problems (1) Colitis Code(s): K52.9 - NONINFECTIVE GASTROENTERITIS AND COLITIS, UNSPECIFIED
--- NOTE | 2016-12-31 16:44 | CONS ---
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 She presented to the emergency room on December 28 with complaints of abdominal pain and bloody stools. She originally became ill on the 20 of December. She had been at work, and she developed cramps while at work on Friday. She remembers when, at 11 o' clock. The cramps persisted through the weekend. She developed bloody diarrhea, and she was seen at [facility] Emergency Room on the . She had stools collected at that time. She was prescribed Flagyl and Imodium, which she took at home. She stayed on these medications. She actually went to work on Friday, Friday, and Friday. On , she noted she had more abdominal discomfort and at night had a fever of 103. She spent Friday in bed, and again started having bloody diarrhea and fever, and she presented to the emergency room with these complaints. In the ER, she had a CAT scan done that showed a diffuse pancolitis. There was a question of free air. She had the CAT scan repeated that did not reveal any free air. She was seen by Surgery, and today she was seen by GI. She reports that since Friday she has not had any more blood in her stools. She continues to have large stools that she reports as large volume occurring up to 6-8 times a day. At her baseline, she moves her bowels 3-4 times a day and sometimes even wakes up at night to have a bowel movement. She denies any family history of any bowel disease. She has had no travel whatsoever. 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 She has a 3-year-old who is well. Evidence of in her house is well. There has been no travel. She has no unusual food preferences. She did eat at [employer] the evening before she got sick, but no one else in her family is sick. She has not recently been on any antibiotics besides those prescribed at [facility], and there was no history of any weight loss. They have no pets, though she does visit her grandmother who has some cats. She reports that at [facility] as well her stools were bloody. She has not gone on any field trips with her camp yet. Today she reports feeling somewhat improved. PAST MEDICAL HISTORY: Notable for an IUD placement. As well, she has had a child. She has a 3-year-old son. She reports being HIV tested as recently as 2 years ago for a physical and is HIV negative. SOCIAL HISTORY: She lives with her , her 3-year-old, and her mother-in- law. There is no history of any cigarette or substance use. 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 ALLERGIES: She has no known drug allergies. MEDICATIONS: Her medications, which she just completed include Flagyl and Imodium. FAMILY HISTORY: Notable for parents who are both well. There is no family history of GI malignancy, Crohn, or ulcerative colitis. REVIEW OF SYSTEMS: She denies any weight loss. She denies rigors but she has been having fever and persistent diarrhea now since the 21 of December. PHYSICAL EXAMINATION: Vital Signs: Her current temperature is 100.9, T-max 102.6, pulse 108, blood pressure 104/63, respiratory rate 17. She is saturating 98%. HEENT: She is normocephalic. Her eyes are anicteric. She does not have any thrush. Neck: Supple. She has no palpable lymphadenopathy. Lungs: Clear to auscultation. Heart: Regular rate and rhythm. Abdomen: Soft. She has some mild distention. She has diffuse abdominal pain on exam. She has positive bowel sounds. Extremities: Without edema. Skin: She has no rash. LABORATORIES: Notable for a white count 11.5, hemoglobin 10.2, platelets 199. Her INR is 1.6, BUN 4, creatinine 0.5. Urinalysis has 1+ leukocytes with 1-3 white cells. Stools have trace blood. Clostridium difficile is back and is negative. Stool for Salmonella, Shigella, Vibrio as well as Escherichia coli 0157 is negative. Blood cultures on admission are negative as well. In summary, this is a young lady admitted with now a 10-day history of diarrhea and fever with no involved travel, no unusual food preferences in an otherwise healthy 21-year-old. Differential diagnosis at this point especially with the negative stool studies would include inflammatory bowel disease. She is being seen by GI for this. Will treat with ceftriaxone and flagyl. on day #3 levaquin/flagyl with continued fever Would obtain a CRP/ESR to check for inflammation. Would check stool ova and parasite. Would order Shiga toxin study as well. will order viral studies as well-norovirus and rotovirus Will observe and make further recommendations based on her clinical course. She has agreed to repeat HIV testing, which I think would be an important negative in this circumstance. Further recommendations to follow. Joanna [id number] [id number]
--- NOTE | 2016-12-31 17:19 | PN ---
Physical Exam: SUBJECTIVE: Patient seen and examined at bedside. Pt is no longer having bloody diarrhea, and states that her abdominal pain is better. Denies SOB, chest or lower extremity pain. OBJECTIVE: Vital Signs Period Temp Pulse Resp BP Sys/Tsang Pulse Ox Last 24 Hr 99.5 F-102.6 F 100-108 17-18 100-130/57-70 97-98 GENERAL: The patient is awake, alert, and fully oriented, in no acute distress. HEAD: Normal with no signs of trauma. EYES: PERRL, extraocular movements intact, sclera anicteric, conjunctiva clear. NECK: Trachea midline, full range of motion, supple. LUNGS: Breath sounds equal, clear to auscultation bilaterally, no wheezes, no crackles, no accessory muscle use. HEART: Regular rate and rhythm, S1, S2 without murmur, rub or gallop. ABDOMEN: soft, mildly distended, mildly tender, + bowel sounds heard in all 4 quadrants, no guarding, no rebound, no voluntary guarding EXTREMITIES: 2+ posterior tibial pulses, warm, well-perfused, no edema. NEUROLOGICAL: Cranial nerves II through XII grossly intact. Laboratory Results - last 24 hr 12/29/16 12/31/16 12/31/16 16:30 06:00 06:00 WBC 11.5 H RBC 3.57 L Hgb 10.2 L Hct 30.8 L MCV 86.3 MCH 28.7 MCHC 33.2 RDW 16.0 H Plt Count 199 MPV 10.1 Neutrophils % 76.0 D Lymphocytes % 8.4 D Monocytes % 13.4 H Eosinophils % 2.0 D Basophils % 0.2 Sodium 141 Potassium 3.4 L Chloride 109 H Carbon Dioxide 25 Anion Gap 7 L BUN 4 L Creatinine 0.5 L Random Glucose 85 D Calcium 7.6 L Magnesium 2.1 Iron 13 L TIBC 169 L Iron Saturation 8 L Active Medications Generic Name Dose Route Start Last Admin Trade Name Freq PRN Reason Stop Dose Admin Acetaminophen 650 mg 12/29/16 09:52 12/31/16 01:13 Tylenol - PO 650 mg Q4H PRN Administration FEVER OR PAIN Heparin Sodium (Porcine) 5,000 unit 12/29/16 10:00 12/31/16 09:34 Heparin - SQ 5,000 unit BID PHIL Administration Sodium Chloride 1,000 mls @ 150 mls/hr 12/29/16 09:00 12/31/16 13:15 Normal Saline - IV 150 mls/hr ASDIR PHIL Administration Levofloxacin 100 mls @ 100 mls/hr 12/30/16 10:00 12/31/16 09:34 Levaquin 500 Mg Premixed Ivpb - IVPB 100 mls/hr DAILY PHIL Administration Metronidazole 500 mg 12/29/16 14:00 12/31/16 13:08 Flagyl - PO 500 mg TID PHIL Administration Morphine Sulfate 2 mg 12/30/16 10:26 12/31/16 13:07 Morphine Injection - IVPUSH 2 mg Q4H PRN Administration PAIN Oxycodone HCl 5 mg 12/29/16 15:33 Roxicodone - PO Q4H PRN PAIN ASSESSMENT/PLAN: 21 y/o F with no significant PMH presents to ED with 1 week of diarrhea. Pt admitted for sepsis secondary to possible infectious colitis. # Sepsis secondary to possible IBD -Stool cx: no growth, Campylobacter still pending -infectious cause possibly less likely as symptoms have been persisting, possible flare? -C.diff toxin negative -Continue Levaquin 500mg IVPB daily, Flagyl 500mg PO q8H (Today is Day3) -F/u CRP -F/u stool cx from [facility], shiga E.coli stool study, IBD serologies, HIV, HCV, ova and parasite testing, rotavirus, norovirus panels -F/u discussion on Flex sig to determine etiology -GI on case, Dr. Davies 2. asymptomatic, +leukocyte esterase on UA -Urine cx: no growth 3. BRBPR -resolved -Continue to monitor H&H, CBC F/E/N -IV NS 150 cc/hr -monitor electrolytes -NPO Visit type - Emergency Visit Emergency Visit: No - New Patient This patient is new to me today: No - Critical Care Critical Care patient: No
--- NOTE | 2016-12-31 18:09 | PN ---
Teaching Attending Note Name of Resident: Gloria Daigle ATTENDING PHYSICIAN STATEMENT I saw and evaluated the patient. I reviewed the resident's note and discussed the case with the resident. I agree with the resident's findings and plan as documented. SUBJECTIVE: Patient reports that abdominal pain is less severe. OBJECTIVE: Vital Signs Period Temp Pulse Resp BP Sys/Tsang Pulse Ox Last 24 Hr 99.5 F-102.6 F 100-108 17-18 100-130/57-70 97-98 HEART: S1S2, tachycardic LUNGS: Clear ABDOMEN: Soft, non-distended, mild diffuse tenderness, normal BS EXTREMITIES: No edema ASSESSMENT AND PLAN: This is a 21-year-old woman wtih no medical history who presented to the ER with bloody diarrhea. 1. SIRS, possible sepsis secondary to infectious colitis - Pain and diarrhea are improving - Continue Levaquin, Flagyl 2. Acute blood loss anemia - Hemoglobin stable
[2016-12-31] MEDS: cefTRIAXone 2 GM/100 ML BAG (PRE-DOCKED) IVPB SCH (18:20)
[2016-12-31] MEDS ORDERED: ONDANSETRON 4 MG/2 ML VIAL IVPUSH PRN (18:40)
[2016-12-31] MEDS: METRONIDAZOLE 500 MG PREMIXED 100 ML IVPB SCH (19:45)
[2016-12-31 21:06] LABS: HIV 1 & 2 AB NEGATIVE; HIV 1 AGp24 NEGATIVE
[2016-12-31] MEDS: KCL 10 MEQ IVPB 100 ML IVPB SCH ×2 (21:51→23:47)
[2016-12-31] MEDS ORDERED: ACETAMINOPHEN 1000 MG/100 ML VIAL (NON FORMULARY) IVPB PRN (22:22)
[2017-01-01] MEDS: METRONIDAZOLE 500 MG PREMIXED 100 ML IVPB SCH ×3 (02:09→18:11)
[2017-01-01 08:15] LABS: BASOPHIL 0.1 % (0-2.0); EOSINOPHIL 2.3 % (0-4.5); MCH 29.3 pg (25.7-33.7); MEAN PLT VOLUME 9.1 fl (7.5-11.1); NEUTROPHILS 68.6 % (42.8-82.8); PLATELET COUNT 243 K/MM3 (134-434); RDW 16.4 % (11.6-15.6); WHITE BLOOD COUNT 9.5 K/mm3 (4.0-10.0)
[2017-01-01 08:30] LABS: INR 1.66 (0.82-1.09); PROTHROMBIN TIME (PATIENT) 18.5 SEC (9.98-11.88)
[2017-01-01 08:32] LABS: ACTIVATED PTT 29.2 SECONDS (26.9-34.4)
[2017-01-01] MEDS: morphine CARPU-JECT 4 MG/1 ML DISP.SYRIN IVPUSH PRN ×4 (08:34→23:53)
[2017-01-01] MEDS: SODIUM CHLORIDE 1,000 ML IV SCH ×3 (08:41→23:52)
[2017-01-01 08:46] LABS: ANION GAP 10 (8-16); C-REACTIVE PROTEIN 16.6 MG/DL (0.00-0.3); CALCIUM 7.4 mg/dL (8.5-10.1); CO2 24 mmol/L (21-32); CREATININE 0.4 mg/dL (0.55-1.02); GLUCOSE,RANDOM 82 mg/dL (74-106); MAGNESIUM 2.1 mg/dL (1.8-2.4)
[2017-01-01] MEDS: cefTRIAXone 2 GM/100 ML BAG (PRE-DOCKED) IVPB SCH (10:45)
[2017-01-01] MEDS: HEPARIN NA (PORCINE) 5,000 UNITS/ML 1ML VIAL SQ SCH ×2 (10:45→22:45)
--- NOTE | 2017-01-01 12:19 | PN ---
GI Progress Note Subjective: Had 1 diarrheal BM today. Temp 101.2 reported overnight Overall Ms. Carvajal in states feeling better. - Objective Vital Signs: Vital Signs Temperature 98.1 F 01/01/17 10:00 Pulse Rate 96 H 01/01/17 10:00 Respiratory Rate 18 01/01/17 10:00 Blood Pressure 110/65 01/01/17 10:00 O2 Sat by Pulse Oximetry (%) 98 01/01/17 09:00 Constitutional: Calm Eyes: No: Sclera Icterus Cardiovascular: Yes: Regular Rate and Rhythm. No: Murmur Respiratory: Yes: CTA Bilaterally Gastrointestinal Inspection: No: Distention ...Auscultate: Yes: Normoactive Bowel Sounds ...Palpate: Yes: Tenderness (Improved from yesterday's exam). No: Guarding, Tenderness, Rebound ...Percussion: No: Tympanitic Edema: No Labs: CBC, BMP 01/01/17 07:40 01/01/17 07:40 INR, PTT INR 1.66 (0.82-1.09) H 01/01/17 07:40 01/01/17 07:40 Atypical p-ANCA Pending Hepatitis A Ab Total Pending Hep Bs Antigen Pending Hep Bs Antibody Pending Hep B Core Total Ab Pending Hepatitis C Antibody Pending S.cerevisiae IgG Ab Pending S. cerevisiae IgG/IgA Pending Problem List - Problems (1) Colitis Assessment/Plan: ? infectious vs. IBD flare Further serologic/stool work-up in progress Will likely have flex sig this week. Discussed with patient and her mother Abx per ID Follow-up stool studies, hepatitis serologies, IBD serologies Given higher risk of thromboembolic events, would continue A/C DVT prophylaxis as long as H/H remains stable persistent elevated INR. Unclear etiology. Consider heme eval Other recommendations as outlined in yesterday's consultation Code(s): K52.9 - NONINFECTIVE GASTROENTERITIS AND COLITIS, UNSPECIFIED
[2017-01-01] MEDS ORDERED: ONDANSETRON 4 MG/2 ML VIAL IVPUSH PRN (14:32)
--- NOTE | 2017-01-01 14:38 | PN ---
Physical Exam: 24 Hour Events: overnight - fever to 101.2 SUBJECTIVE: feeling better. bloody diarrhea last night. no n/v. OBJECTIVE: Vital Signs Period Temp Pulse Resp BP Sys/Tsang Pulse Ox Last 24 Hr 98.1 F-101.2 F 93-108 17-18 102-113/61-65 98-98 GENERAL: The patient is awake, alert, and fully oriented, in no acute distress. HEAD: Normal with no signs of trauma. EYES: PERRLA, EOMI, sclera anicteric, conjunctiva clear ENT: Oropharynx clear without exudates, moist mucous membranes. LUNGS: CTAB, no wheezes, no crackles, no accessory muscle use. HEART: rrr, normal S1/S2 without murmur, rub or gallop. ABDOMEN: Soft, tender to deep palpation in lower quadrants, bowel sounds SKIN: Warm, dry, normal turgor, no rashes or lesions noted Laboratory Results - last 24 hr 12/31/16 01/01/17 01/01/17 18:30 07:40 07:40 WBC 9.5 RBC 3.27 L Hgb 9.6 L Hct 28.1 L MCV 86.0 MCH 29.3 MCHC 34.0 RDW 16.4 H Plt Count 243 D MPV 9.1 Neutrophils % 68.6 Lymphocytes % 12.3 D Monocytes % 16.7 H Eosinophils % 2.3 Basophils % 0.1 ESR INR PTT (Actin FS) Sodium 143 Potassium 3.1 L Chloride 109 H Carbon Dioxide 24 Anion Gap 10 BUN 4 L Creatinine 0.4 L Random Glucose 82 Calcium 7.4 L Magnesium 2.1 C-Reactive Protein 16.6 H Hepatitis C Antibody HIV 1&2 Antibody Screen Negative HIV P24 Antigen Negative 01/01/17 01/01/17 01/01/17 07:40 07:40 07:40 WBC RBC Hgb Hct MCV MCH MCHC RDW Plt Count MPV Neutrophils % Lymphocytes % Monocytes % Eosinophils % Basophils % ESR 50 H INR 1.66 H PTT (Actin FS) 29.2 Sodium Potassium Chloride Carbon Dioxide Anion Gap BUN Creatinine Random Glucose Calcium Magnesium C-Reactive Protein Hepatitis C Antibody Cancelled HIV 1&2 Antibody Screen HIV P24 Antigen Microbiology 12/31/16 11:30 Blood - Peripheral Venous Blood Culture - Preliminary NO GROWTH OBTAINED AFTER 24 HOURS, INCUBATION TO CONTINUE FOR 4 DAYS. 12/31/16 11:42 Blood - Peripheral Venous Blood Culture - Preliminary NO GROWTH OBTAINED AFTER 24 HOURS, INCUBATION TO CONTINUE FOR 4 DAYS. 12/31/16 17:30 Stool Norovirus GI - Preliminary 12/31/16 17:30 Stool Norovirus GII - Preliminary 12/31/16 17:30 Stool Shiga Toxin Test - Preliminary 12/29/16 03:59 Blood - Peripheral Venous Blood Culture - Preliminary NO GROWTH OBTAINED AFTER 72 HOURS, INCUBATION TO CONTINUE FOR 2 DAYS. 12/29/16 03:59 Blood - Peripheral Venous Blood Culture - Preliminary NO GROWTH OBTAINED AFTER 72 HOURS, INCUBATION TO CONTINUE FOR 2 DAYS. 12/29/16 15:07 Stool Gram Stain - Final 12/29/16 15:07 Stool Salmonella/Shigella Culture - Final NO GROWTH OF SALMONELLA OR SHIGELLA SPECIES OBTAINED 12/29/16 15:07 Stool Campylobacter Culture - Final NO GROWTH OF CAMPYLOBACTER SPECIES OBTAINED 12/29/16 15:07 Stool Yersinia Culture - Final NO GROWTH OF YERSINIA SPECIES OBTAINED 12/29/16 15:07 Stool Vibrio Culture - Final NO GROWTH OF VIBRIO SPECIES OBTAINED 12/29/16 15:07 Stool Escherichia coli 0157 Culture - Final NO GROWTH OF E COLI 0157 OBTAINED 12/30/16 16:00 Stool Clostridium difficile Antigen (DELICIA) - Final 12/30/16 16:00 Stool Clostridium difficile Toxin Assay - Final 12/29/16 17:39 Urine - Urine Clean Catch Urine Culture - Final NO GROWTH OBTAINED Active Medications Acetaminophen (Tylenol -) 650 mg PO Q4H PRN PRN Reason: FEVER OR PAIN Last Admin: 12/31/16 01:13 Dose: 650 mg Acetaminophen (Ofirmev Injection -) 1,000 mg IVPB Q6H PRN PRN Reason: FEVER OR PAIN Stop: 01/01/17 16:23 Last Admin: 12/31/16 23:44 Dose: 1,000 mg Ceftriaxone Sodium (Rocephin 2gm Ivpb (Pre-Docked)) 2 gm IVPB DAILY [facility] PRN Reason: Protocol Last Admin: 01/01/17 10:45 Dose: 2 gm Heparin Sodium (Porcine) (Heparin -) 5,000 unit SQ BID [facility] Last Admin: 01/01/17 10:45 Dose: 5,000 unit Sodium Chloride (Normal Saline -) 1,000 mls @ 150 mls/hr IV ASDIR [facility] Last Admin: 01/01/17 08:41 Dose: 150 mls/hr Metronidazole (Flagyl 500mg Premixed Ivpb -) 100 mls @ 100 mls/hr IVPB Q8H-IV PHIL Last Admin: 01/01/17 10:45 Dose: 100 mls/hr Miconazole Nitrate (Monistat-7 Vaginal Cream -) 1 applic VG HS PHIL Stop: 01/07/17 22:01 Morphine Sulfate (Morphine Injection -) 2 mg IVPUSH Q4H PRN PRN Reason: PAIN Last Admin: 01/01/17 14:58 Dose: 2 mg Ondansetron HCl (Zofran Injection) 4 mg IVPUSH Q4H PRN PRN Reason: NAUSEA AND/OR VOMITING Stop: 01/02/17 02:33 Last Admin: 01/01/17 15:57 Dose: 4 mg ASSESSMENT/PLAN: 21yo young woman with c/o abdominal pain, fever, and bloody diarrhea who has alonso -colitis of unclear etiology. #Colitis: inflammatory vs infectious etiology -continue metronidazole and ceftriaxone -f/u stool O&P, HIV, stool viral panel studies -obtain medical records from [facility] -GI to [facility] d/w Dr. La Will continue to follow. TYE LINDSEY MD PGY-1 Visit type - Emergency Visit Emergency Visit: No - New Patient This patient is new to me today: Yes Date on this admission: 01/01/17 - Critical Care Critical Care patient: No
--- NOTE | 2017-01-01 15:16 | PN ---
Teaching Attending Note Name of Resident: Tracie Tabor ATTENDING PHYSICIAN STATEMENT I saw and evaluated the patient. I reviewed the resident's note and discussed the case with the resident. I agree with the resident's findings and plan as documented. SUBJECTIVE: feels somewhat improved stools are bloody again still intermittent fevers OBJECTIVE: Vital Signs Period Temp Pulse Resp BP Sys/Tsang Pulse Ox Last 24 Hr 98.1 F-101.2 F 93-108 18-18 102-113/61-65 98-98 cor-rrr lungs clear abd siligthly distended, +BS, less tender to palpation ext no edema CBC, BMP 01/01/17 07:40 01/01/17 07:40 Microbiology 12/31/16 11:30 Blood - Peripheral Venous Blood Culture - Preliminary NO GROWTH OBTAINED AFTER 24 HOURS, INCUBATION TO CONTINUE FOR 4 DAYS. 12/31/16 11:42 Blood - Peripheral Venous Blood Culture - Preliminary NO GROWTH OBTAINED AFTER 24 HOURS, INCUBATION TO CONTINUE FOR 4 DAYS. 12/31/16 17:30 Stool Norovirus GI - Preliminary 12/31/16 17:30 Stool Norovirus GII - Preliminary 12/31/16 17:30 Stool Shiga Toxin Test - Preliminary 12/29/16 03:59 Blood - Peripheral Venous Blood Culture - Preliminary NO GROWTH OBTAINED AFTER 72 HOURS, INCUBATION TO CONTINUE FOR 2 DAYS. 12/29/16 03:59 Blood - Peripheral Venous Blood Culture - Preliminary NO GROWTH OBTAINED AFTER 72 HOURS, INCUBATION TO CONTINUE FOR 2 DAYS. 12/29/16 15:07 Stool Gram Stain - Final 12/29/16 15:07 Stool Salmonella/Shigella Culture - Final NO GROWTH OF SALMONELLA OR SHIGELLA SPECIES OBTAINED 12/29/16 15:07 Stool Campylobacter Culture - Final NO GROWTH OF CAMPYLOBACTER SPECIES OBTAINED 12/29/16 15:07 Stool Yersinia Culture - Final NO GROWTH OF YERSINIA SPECIES OBTAINED 12/29/16 15:07 Stool Vibrio Culture - Final NO GROWTH OF VIBRIO SPECIES OBTAINED 12/29/16 15:07 Stool Escherichia coli 0157 Culture - Final NO GROWTH OF E COLI 0157 OBTAINED 12/30/16 16:00 Stool Clostridium difficile Antigen (DELICIA) - Final 12/30/16 16:00 Stool Clostridium difficile Toxin Assay - Final 12/29/16 17:39 Urine - Urine Clean Catch Urine Culture - Final NO GROWTH OBTAINED ASSESSMENT AND PLAN: work up in progress alonso colitis suspect will need flex sig continue rocephin/flagyl
--- NOTE | 2017-01-01 15:30 | PN ---
Progress Note (short form) - Note Progress Note: Attending Surgeon No c/o; less diarrhea; more formed stools; tolerating clear liquids VSS AF had t max 101.2 abdomen-soft; non distended; diffusely superficially tender to palpation WBSC wnl IMP: colotis PLAN: Continue as per primary care team and consultants. Luis Alberto Cotton MD FACS
--- NOTE | 2017-01-01 17:07 | PN ---
Teaching Attending Note Name of Resident: Gloria Daigle ATTENDING PHYSICIAN STATEMENT I saw and evaluated the patient. I reviewed the resident's note and discussed the case with the resident. I agree with the resident's findings and plan as documented. SUBJECTIVE: Diarrhea is improving. She complains of nausea. OBJECTIVE: Vital Signs Period Temp Pulse Resp BP Sys/Tsang Pulse Ox Last 24 Hr 98.1 F-101.2 F 93-108 16-18 102-113/58-65 98-98 HEART: S1S2, tachycardic LUNGS: Clear ABDOMEN: Soft, non-distended, mild diffuse tenderness, normal BS EXTREMITIES: No edema ASSESSMENT AND PLAN: This is a 21-year-old woman wtih no medical history who presented to the ER with bloody diarrhea. 1. SIRS, possible sepsis secondary to infectious colitis - Pain and diarrhea are improving - Continue Levaquin, Flagyl - Zofran as needed for nausea - Plan for flexible sigmoidoscopy 2. Acute blood loss anemia - Hemoglobin stable
--- NOTE | 2017-01-01 17:51 | PN ---
Physical Exam: SUBJECTIVE: Patient seen and examined at bedside. Number of loose BMs now 2-3 ( decreased frequency), still with blood. Denies abdominal or chest pain, SOB. Pt still feeling nauseous. OBJECTIVE: Vital Signs Period Temp Pulse Resp BP Sys/Tsang Pulse Ox Last 24 Hr 98.1 F-101.2 F 93-108 16-18 102-113/58-65 98-98 GENERAL: The patient is awake, alert, and fully oriented, in no acute distress. HEAD: Normal with no signs of trauma. EYES: PERRL, extraocular movements intact, sclera anicteric, conjunctiva clear. ENT: Ears normal, nares patent, oropharynx clear without exudates, moist mucous membranes. NECK: Trachea midline, full range of motion, supple. LUNGS: Breath sounds equal, clear to auscultation bilaterally, no wheezes, no crackles, no accessory muscle use. HEART: Regular rate and rhythm, S1, S2 without murmur, rub or gallop. ABDOMEN: mildly tender, mildly distended, normoactive bowel sounds, no guarding , no rebound EXTREMITIES: 2+ posterior tibial pulses, warm, well-perfused, no edema. NEUROLOGICAL: Cranial nerves II through XII grossly intact. Laboratory Results - last 24 hr 12/31/16 01/01/17 01/01/17 18:30 07:40 07:40 WBC 9.5 RBC 3.27 L Hgb 9.6 L Hct 28.1 L MCV 86.0 MCH 29.3 MCHC 34.0 RDW 16.4 H Plt Count 243 D MPV 9.1 Neutrophils % 68.6 Lymphocytes % 12.3 D Monocytes % 16.7 H Eosinophils % 2.3 Basophils % 0.1 ESR INR PTT (Actin FS) Sodium 143 Potassium 3.1 L Chloride 109 H Carbon Dioxide 24 Anion Gap 10 BUN 4 L Creatinine 0.4 L Random Glucose 82 Calcium 7.4 L Magnesium 2.1 C-Reactive Protein 16.6 H Hepatitis C Antibody HIV 1&2 Antibody Screen Negative HIV P24 Antigen Negative 01/01/17 01/01/17 01/01/17 07:40 07:40 07:40 WBC RBC Hgb Hct MCV MCH MCHC RDW Plt Count MPV Neutrophils % Lymphocytes % Monocytes % Eosinophils % Basophils % ESR 50 H INR 1.66 H PTT (Actin FS) 29.2 Sodium Potassium Chloride Carbon Dioxide Anion Gap BUN Creatinine Random Glucose Calcium Magnesium C-Reactive Protein Hepatitis C Antibody Cancelled HIV 1&2 Antibody Screen HIV P24 Antigen Active Medications Generic Name Dose Route Start Last Admin Trade Name Li PRN Reason Stop Dose Admin Acetaminophen 650 mg 12/29/16 09:52 12/31/16 01:13 Tylenol - PO 650 mg Q4H PRN Administration FEVER OR PAIN Ceftriaxone Sodium 2 gm 12/31/16 17:30 01/01/17 10:45 Rocephin 2gm Ivpb (Pre-Docked) IVPB 2 gm DAILY PHIL Administration Protocol Heparin Sodium (Porcine) 5,000 unit 12/29/16 10:00 01/01/17 10:45 Heparin - SQ 5,000 unit BID PHIL Administration Sodium Chloride 1,000 mls @ 150 mls/hr 12/29/16 09:00 01/01/17 16:59 Normal Saline - IV 150 mls/hr ASDIR PHIL Administration Metronidazole 100 mls @ 100 mls/hr 12/31/16 18:00 01/01/17 10:45 Flagyl 500mg Premixed Ivpb - IVPB 100 mls/hr Q8H-IV PHIL Administration Miconazole Nitrate 1 applic 01/01/17 22:00 Monistat-7 Vaginal Cream - VG 01/07/17 22:01 HS PHIL Morphine Sulfate 2 mg 12/30/16 10:26 01/01/17 14:58 Morphine Injection - IVPUSH 2 mg Q4H PRN Administration PAIN Ondansetron HCl 4 mg 01/01/17 14:32 01/01/17 15:57 Zofran Injection IVPUSH 01/02/17 02:33 4 mg Q4H PRN Administration NAUSEA AND/OR VOMITING ASSESSMENT/PLAN: 21 y/o F with no significant PMH presents to ED with 1 week of diarrhea. Pt admitted for sepsis secondary to possible infectious colitis. # Sepsis secondary to possible IBD -infectious cause possibly less likely as symptoms have been persisting, possible flare? IBD? -C.diff toxin negative -Continue Levaquin 500mg IVPB daily, Flagyl 500mg PO q8H (Today is Day4) -F/u CRP -F/u stool cx from [facility], shiga E.coli stool study, IBD serologies, HIV, HCV, ova and parasite testing, rotavirus, norovirus panels -Pt for Flex Sig -GI on case, Dr. Davies 2. asymptomatic, +leukocyte esterase on UA -Urine cx: no growth 3. BRBPR -resolved -Continue to monitor H&H, CBC F/E/N -IV NS 150 cc/hr -monitor electrolytes -clear liquids Visit type - Emergency Visit Emergency Visit: No - New Patient This patient is new to me today: No - Critical Care Critical Care patient: No
[2017-01-01] MEDS: MICONAZOLE NITRATE 2% VAGINAL CREAM 45 GM TUBE VG SCH (22:46)
[2017-01-02] MEDS: METRONIDAZOLE 500 MG PREMIXED 100 ML IVPB SCH ×2 (02:22→10:20)
[2017-01-02 06:06] LABS: HEP B SURFACE AB Non Reactive (.)
[2017-01-02] MEDS ORDERED: PT OWN MED DRAWER 7, Y5N ONE (07:04)
[2017-01-02 07:11] LABS: ALBUMIN 1.8 g/dl (3.4-5.0); ALK PHOS 33 U/L (45-117); ANION GAP 8 (8-16); BILIRUBIN,DIRECT 0.1 mg/dL (0.0-0.2); BILIRUBIN,TOTAL 0.2 mg/dL (0.2-1.0); CALCIUM 7.4 mg/dL (8.5-10.1); CO2 24 mmol/L (21-32); CREATININE 0.4 mg/dL (0.55-1.02); GLUCOSE,RANDOM 90 mg/dL (74-106); SGOT/AST 23 U/L (15-37); SGPT/ALT 12 U/L (12-78); TOT PROT 5.1 g/dl (6.4-8.2)
[2017-01-02 07:31] LABS: BASOPHIL 0.4 % (0-2.0); EOSINOPHIL 2.3 % (0-4.5); MEAN CELL VOLUME 85.4 fl (80-96); MEAN PLT VOLUME 9.4 fl (7.5-11.1); NEUTROPHILS 67.8 % (42.8-82.8); PLATELET COUNT 237 K/MM3 (134-434); RDW 15.7 % (11.6-15.6); WHITE BLOOD COUNT 8.7 K/mm3 (4.0-10.0)
[2017-01-02] MEDS: morphine CARPU-JECT 4 MG/1 ML DISP.SYRIN IVPUSH PRN ×3 (07:31→17:30)
[2017-01-02] MEDS ORDERED: POTASSIUM CHLORIDE TABS 20 MEQ TABLET.ER (FP) PO ONE (08:05)
[2017-01-02] MEDS: SODIUM CHLORIDE 1,000 ML IV SCH (08:16)
[2017-01-02] MEDS: SODIUM CHLORIDE 0.9%/KCL 1,000 ML IV SCH ×2 (08:45→17:32)
[2017-01-02] MEDS ORDERED: KCL 10 MEQ IVPB 100 ML IVPB SCH (09:00)
[2017-01-02] MEDS: cefTRIAXone 2 GM/100 ML BAG (PRE-DOCKED) IVPB SCH (09:04)
--- NOTE | 2017-01-02 09:16 | PN ---
Physical Exam: 24hr events: Hepatitis A Ab neg Hepatitis B Ag and Ab neg/non-reactive Hep C Ab negative Stool - MRSA + SUBJECTIVE: Patient seen and examined. c/o abdominal cramps, 1x loose, non- bloody BM this AM. No fevers or chills. OBJECTIVE: Vital Signs Period Temp Pulse Resp BP Sys/Tsang Pulse Ox Last 24 Hr 98.1 F-99.9 F 95-102 16-18 106-115/58-65 98 GENERAL: The patient is awake, alert, and fully oriented, in no acute distress. LUNGS: CTAB, no wheezes, crackles or rhonchi HEART: Regular rate and rhythm, normal S1/S2 without murmur, rub or gallop. ABDOMEN: Soft, tender to deep palpation in lower quadrants LOWER EXTREMITIES: 2+ pulses, warm, well-perfused, no edema. SKIN: Warm, dry, normal turgor, no rashes or lesions noted CBC, BMP 01/02/17 06:15 01/02/17 06:15 INR, PTT INR 1.66 (0.82-1.09) H 01/01/17 07:40 Laboratory Tests 01/01/17 07:40 Atypical p-ANCA Pending S.cerevisiae IgG Ab Pending S. cerevisiae IgG/IgA Pending Laboratory Tests 01/01/17 01/02/17 07:40 06:15 ESR 50 H Potassium 2.9 L* Microbiology 12/31/16 17:30 Stool Shiga Toxin Test - Pending 12/31/16 17:30 Stool Norovirus GI - Pending 12/31/16 17:30 Stool Norovirus GII - Pending 12/31/16 17:30 Stool Salmonella/Shigella Culture - Preliminary Presumptive Mrsa (Pbp2a Pos) 12/31/16 17:30 Stool Yersinia Culture - Preliminary NO ENTERIC PATHOGENS, 24 HOURS, ON PRIMARY PLATES 12/31/16 17:30 Stool Vibrio Culture - Preliminary NO ENTERIC PATHOGENS, 24 HOURS, ON PRIMARY PLATES 12/31/16 17:30 Stool Escherichia coli 0157 Culture - Preliminary NO ENTERIC PATHOGENS, 24 HOURS, ON PRIMARY PLATES 12/31/16 11:30 Blood - Peripheral Venous Blood Culture - Preliminary NO GROWTH OBTAINED AFTER 48 HOURS, INCUBATION TO CONTINUE FOR 3 DAYS. 12/31/16 11:42 Blood - Peripheral Venous Blood Culture - Preliminary NO GROWTH OBTAINED AFTER 48 HOURS, INCUBATION TO CONTINUE FOR 3 DAYS. 01/01/17 07:40 Blood - Peripheral Venous TB Test (QFT) (DELICIA) - Preliminary Active Medications Acetaminophen (Tylenol -) 650 mg PO Q4H PRN PRN Reason: FEVER OR PAIN Last Admin: 12/31/16 01:13 Dose: 650 mg Ceftriaxone Sodium (Rocephin 2gm Ivpb (Pre-Docked)) 2 gm IVPB DAILY PHIL PRN Reason: Protocol Last Admin: 01/02/17 09:04 Dose: 2 gm Heparin Sodium (Porcine) (Heparin -) 5,000 unit SQ BID PHIL Last Admin: 01/01/17 22:45 Dose: 5,000 unit Metronidazole (Flagyl 500mg Premixed Ivpb -) 100 mls @ 100 mls/hr IVPB Q8H-IV PHIL Last Admin: 01/02/17 02:22 Dose: 100 mls/hr Potassium Chloride/Sodium Chloride (Ns+20 Meq Kcl -) 1,000 mls @ 150 mls/hr IV ASDIR PHIL Last Admin: 01/02/17 08:45 Dose: 150 mls/hr Miconazole Nitrate (Monistat-7 Vaginal Cream -) 1 applic VG HS [facility] Stop: 01/07/17 22:01 Last Admin: 01/01/17 22:46 Dose: 1 applic Morphine Sulfate (Morphine Injection -) 2 mg IVPUSH Q4H PRN PRN Reason: PAIN Last Admin: 01/02/17 07:31 Dose: 2 mg ASSESSMENT/PLAN: 21yo woman with c/o abdominal cramps, fever, and bloody diarrhea x 2weeks who has alonso-colitis of unclear etiology. Based on duration of patient's symptoms and degree of abdominal pain/cramps that are unrelieved with morphine suggests infectious etiology less likely. Stool culture grew MRSA+, but this is unlikely to be cause of current symptoms; possibly contamination vs colonization. #Colitis: inflammatory vs infectious etiology -d/c metronidazole and ceftriaxone -f/u stool O&P, norvo and rotavirus panel, shiga toxin -Stool MRSA+ --> placed on isolation -GI to flex sig 01/03 d/w Dr. Fowler Will continue to follow. TYE LINDSEY MD PGY-1 Visit type - Emergency Visit Emergency Visit: No - New Patient This patient is new to me today: No - Critical Care Critical Care patient: No
--- NOTE | 2017-01-02 09:18 | PN ---
GI Progress Note Subjective: No acute events 1 diarrheal bowel movement today, three yesterday Her mother says that Pepper gets nauseous when she doesn't receive morphine low grade temps this morning Abdominal cramping described as the same as yesterday ] - Objective Vital Signs: Vital Signs Temperature 99.9 F H 01/02/17 06:50 Pulse Rate 102 H 01/02/17 06:50 Respiratory Rate 18 01/02/17 06:50 Blood Pressure 106/63 01/02/17 06:50 O2 Sat by Pulse Oximetry (%) 98 01/01/17 21:00 Constitutional: Calm Eyes: No: Sclera Icterus Cardiovascular: Yes: Regular Rate and Rhythm Respiratory: Yes: CTA Bilaterally Gastrointestinal Inspection: Yes: Scars (decorative umbilical ring scar). No: Distention ...Auscultate: Yes: Normoactive Bowel Sounds ...Palpate: Yes: Tenderness (mild TTP diffusely) ...Percussion: No: Tympanitic Edema: No Neurological: Yes: Alert, Oriented Labs: CBC, BMP 01/02/17 06:15 01/02/17 06:15 INR, PTT INR 1.66 (0.82-1.09) H 01/01/17 07:40 Laboratory Tests 01/01/17 07:40 Atypical p-ANCA Pending S.cerevisiae IgG Ab Pending S. cerevisiae IgG/IgA Pending Microbiology 12/31/16 17:30 Stool Shiga Toxin Test - Pending 12/31/16 17:30 Stool Norovirus GI - Pending 12/31/16 17:30 Stool Norovirus GII - Pending Problem List - Problems (1) Colitis Assessment/Plan: Persistent symptoms with initial stool studies being unrevealing Plan for flex sig tomorrow. I discusswed this with Pepper and her mother whoi was at bedside. We discussed pootential risks oif the procedure like but not limited to bleeding, perforation requiring surgery to repair, infection and sedation medication effects all of which could be potentially life threatening. She has agreed to the procedure and consent was obtained Advanced diet to low fiber Hold AM dose of heparin NPO after midnight Replete electrolytes. Added magnesium to AM labs as well as phosphorous Code(s): K52.9 - NONINFECTIVE GASTROENTERITIS AND COLITIS, UNSPECIFIED
[2017-01-02] MEDS ORDERED: PHYTONADIONE 5 MG TABLET PO ONE (10:00)
[2017-01-02] MEDS: HEPARIN NA (PORCINE) 5,000 UNITS/ML 1ML VIAL SQ SCH ×2 (10:21→22:42)
--- NOTE | 2017-01-02 12:03 | PN ---
Physical Exam: SUBJECTIVE: Patient seen and examined at bedside. Pt still has constant abdominal pain that is unchanged. 1 episode of emesis this morning. Still having loose bowel movements, but decreased in frequency and without blood. Pt for flex sig tomorrow. OBJECTIVE: Vital Signs Period Temp Pulse Resp BP Sys/Tsang Pulse Ox Last 24 Hr 98.2 F-99.9 F 95-102 16-18 104-115/58-63 98-99 GENERAL: The patient is awake, alert, and fully oriented, in no acute distress. HEAD: Normal with no signs of trauma. EYES: PERRL, extraocular movements intact, sclera anicteric, conjunctiva clear. NECK: Trachea midline, full range of motion, supple. LUNGS: Breath sounds equal, clear to auscultation bilaterally, no wheezes, no crackles, no accessory muscle use. HEART: Regular rate and rhythm, S1, S2 without murmur, rub or gallop. ABDOMEN: Soft, mildly tender and distended, normoactive bowel sounds, no guarding, no rebound EXTREMITIES: 2+ posterior tibial pulses, warm, well-perfused, no edema. NEUROLOGICAL: Cranial nerves II through XII grossly intact. Laboratory Results - last 24 hr 01/01/17 01/02/17 01/02/17 07:40 06:15 06:15 WBC 8.7 RBC 3.07 L Hgb 8.9 L Hct 26.2 L MCV 85.4 MCH 29.0 MCHC 34.0 RDW 15.7 H Plt Count 237 MPV 9.4 Neutrophils % 67.8 Lymphocytes % 13.1 Monocytes % 16.4 H Eosinophils % 2.3 Basophils % 0.4 D Sodium 144 Potassium 2.9 L* Chloride 112 H Carbon Dioxide 24 Anion Gap 8 BUN 3 L D Creatinine 0.4 L Random Glucose 90 Calcium 7.4 L Total Bilirubin 0.2 D Direct Bilirubin 0.1 AST 23 D ALT 12 D Alkaline Phosphatase 33 L D C-Reactive Protein Total Protein 5.1 L D Albumin 1.8 L D Hepatitis A Ab Total Negative Hep Bs Antigen Negative Hep Bs Antibody Non reactive Hep B Core Total Ab Negative Hepatitis C Antibody 0.2 01/02/17 06:15 WBC RBC Hgb Hct MCV MCH MCHC RDW Plt Count MPV Neutrophils % Lymphocytes % Monocytes % Eosinophils % Basophils % Sodium Potassium Chloride Carbon Dioxide Anion Gap BUN Creatinine Random Glucose Calcium Total Bilirubin Direct Bilirubin AST ALT Alkaline Phosphatase C-Reactive Protein 11.1 H D Total Protein Albumin Hepatitis A Ab Total Hep Bs Antigen Hep Bs Antibody Hep B Core Total Ab Hepatitis C Antibody Active Medications Generic Name Dose Route Start Last Admin Trade Name Freq PRN Reason Stop Dose Admin Acetaminophen 650 mg 12/29/16 09:52 12/31/16 01:13 Tylenol - PO 650 mg Q4H PRN Administration FEVER OR PAIN Ceftriaxone Sodium 2 gm 12/31/16 17:30 01/02/17 09:04 Rocephin 2gm Ivpb (Pre-Docked) IVPB 2 gm DAILY PHIL Administration Protocol Heparin Sodium (Porcine) 5,000 unit 12/29/16 10:00 01/02/17 10:21 Heparin - SQ 5,000 unit BID PHIL Administration Metronidazole 100 mls @ 100 mls/hr 12/31/16 18:00 01/02/17 10:20 Flagyl 500mg Premixed Ivpb - IVPB 100 mls/hr Q8H-IV PHIL Administration Potassium Chloride/Sodium Chloride 1,000 mls @ 150 mls/hr 01/02/17 08:33 08:45 Ns+20 Meq Kcl - IV 150 mls/hr ASDIR PHIL Administration Miconazole Nitrate 1 applic 01/01/17 22:00 01/01/17 22:46 Monistat-7 Vaginal Cream - VG 01/07/17 22:01 1 applic HS PHIL Administration Morphine Sulfate 2 mg 12/30/16 10:26 01/02/17 07:31 Morphine Injection - IVPUSH 2 mg Q4H PRN Administration PAIN ASSESSMENT/PLAN: 21 y/o F with no significant PMH presents to ED with 1 week of diarrhea. Pt admitted for sepsis secondary to possible infectious colitis. # Sepsis secondary to possible IBD -IBD vs. infectious -Flagyl Day 3, Rocephin Day 2 -CRP elevated, 11.1 -HIV, HepB, HepC negative -P-ANCA, stool ova and parasite - pending -Pt for Flex Sig tomorrow -Low fiber diet until midnight then NPO -Contacted [facility] medical records, request faxed over, will f/u -GI on case, Dr. Davies #Hypokalemia -K+ 2.9 this morning, most likely from emesis, diarrhea -Repleted with NS+20mEq KCl -Will f/u BMP #Vaginal itching -Continue Monistat #BRBPR-resolved -Currently no active bleeding -Continue to monitor H&H, CBC -Last H&H: .02/25.2 #asymptomatic, +leukocyte esterase on UA - resolved -Urine cx: no growth Visit type - Emergency Visit Emergency Visit: No - New Patient This patient is new to me today: No - Critical Care Critical Care patient: No
[2017-01-02 12:08] LABS: MAGNESIUM 1.9 mg/dL (1.8-2.4); PHOSPHOROUS 2.7 mg/dL (2.5-4.9)
--- NOTE | 2017-01-02 12:53 | PN ---
Teaching Attending Note Name of Resident: Gloria Daigle ATTENDING PHYSICIAN STATEMENT I saw and evaluated the patient. I reviewed the resident's note and discussed the case with the resident. I agree with the resident's findings and plan as documented. SUBJECTIVE: Patient says she has some abdominal pain. She is still nauseous and she had non-bloody diarrhea this morning. OBJECTIVE: Vital Signs Period Temp Pulse Resp BP Sys/Tsang Pulse Ox Last 24 Hr 98.2 F-99.9 F 95-102 16-18 104-115/58-63 98-99 HEART: S1S2, RRR LUNGS: Clear ABDOMEN: Mild diffuse tenderness EXTREMITIES: No edema ASSESSMENT AND PLAN: This is a 21-year-old woman wtih no medical history who presented to the ER with bloody diarrhea. 1. SIRS, possible sepsis secondary to infectious colitis - C-RP 16.6 -> 11.1 - Continue Levaquin, Flagyl - Zofran as needed for nausea - Plan for flexible sigmoidoscopy tomorrow 2. Acute blood loss anemia - Continue to monitor hemoglobin
--- NOTE | 2017-01-02 13:19 | PN ---
Teaching Attending Note Name of Resident: Tracie Tabor ATTENDING PHYSICIAN STATEMENT I saw and evaluated the patient. I reviewed the resident's note and discussed the case with the resident. I agree with the resident's findings and plan as documented. SUBJECTIVE:Continues Ceftiaxone metronidazole Still report bloody stools OBJECTIVE: ASSESSMENT AND PLAN: Selected Entries 01/02/17 09:00 Temperature 99.1 F Pulse Rate 96 H Respiratory 18 Rate Blood Pressure 104/60 Microbiology 12/31/16 17:30 Stool Salmonella/Shigella Culture - Preliminary 12/31/16 17:30 Stool Escherichia coli 0157 Culture - Preliminary Presumptive Mrsa (Pbp2a Pos) NO ENTERIC PATHOGENS, 24 HOURS, ON PRIMARY PLATES NO ENTERIC PATHOGENS, 24 HOURS, ON PRIMARY PLATES NO ENTERIC PATHOGENS, 24 HOURS, ON PRIMARY PLATES Laboratory Tests 01/01/17 01/01/17 01/01/17 07:40 07:40 07:40 WBC 9.5 Hgb 9.6 L Plt Count 243 D ESR 50 H Potassium C-Reactive Protein 16.6 H 01/02/17 01/02/17 06:15 06:15 WBC Hgb Plt Count ESR Potassium 2.9 L* C-Reactive Protein 11.1 H D Assessment Colitis ? infectious vs IBD CRP coming down Plan Continue current antibiotic pending endoscopy and consider stopping antibiotics MRSA I assume contamination of specimen or colonized Needs isolation Malcolm PHELAN
[2017-01-03] MEDS: MICONAZOLE NITRATE 2% VAGINAL CREAM 45 GM TUBE VG SCH ×2 (00:03→21:30)
[2017-01-03] MEDS: SODIUM CHLORIDE 0.9%/KCL 1,000 ML IV SCH ×3 (00:16→18:30)
[2017-01-03] MEDS: morphine CARPU-JECT 4 MG/1 ML DISP.SYRIN IVPUSH PRN ×3 (00:51→16:44)
--- NOTE | 2017-01-03 08:14 | PN ---
Progress Note (short form) - Note Progress Note: Attending Surgeon Much the same; some c/o abdo pain and diarrhea VSS AF abdomen-soft; minimally tender; improved from original exam IMP: colitis of ? origin PLAN: Continue as per consultants/primary care team; reconsult as necessary. Luis Alberto Cotton MD FACS
[2017-01-03 08:44] LABS: INR 1.53 (0.82-1.09)
--- NOTE | 2017-01-03 11:48 | PN ---
Progress Note (short form) - Note Progress Note: GI Procedure NOte: Please see scanned sigmoidoscopy report. Picture is most consistent with ulcerative colitis. I discused this illness with the patient and her mother including the need for steroids initially and Imuran longer term. I discussed the adverse effects of steroids and the risks of lymphoma with Imuran therapy. I will start SoluCortef, cortenemas and Mesalamine for now until biopsies are read.
[2017-01-03] MEDS: HYDROCORTISONE SOD SUCCINATE 100 MG/2 ML VIAL IVPB SCH ×2 (12:33→21:15)
--- NOTE | 2017-01-03 12:58 | PN ---
Physical Exam: SUBJECTIVE: Patient seen and examined at bedside this morning, before flex sig. Overnight pt had 100.7F fever and was given morphine for pain control. Pt states that this morning, she is still having abdominal discomfort and loose bowel movements, with blood. Denies chest pain, or SOB. Given enema to prepare for procedure. OBJECTIVE: Vital Signs Period Temp Pulse Resp BP Sys/Tsang Pulse Ox Last 24 Hr 98.3 F-100.8 F 94-106 16-20 96-110/53-71 98-100 GENERAL: The patient is awake, alert, and fully oriented, in no acute distress. HEAD: Normal with no signs of trauma. EYES: PERRL, extraocular movements intact, sclera anicteric, conjunctiva clear. ENT: Ears normal, nares patent, oropharynx clear without exudates, moist mucous membranes. NECK: Trachea midline, full range of motion, supple. LUNGS: Breath sounds equal, clear to auscultation bilaterally, no wheezes, no crackles, no accessory muscle use. HEART: Regular rate and rhythm, S1, S2 without murmur, rub or gallop. ABDOMEN: Soft, nondistended, diffusely tender, normoactive bowel sounds, no guarding, no rebound, no hepatosplenomegaly, no masses. EXTREMITIES: 2+ posterior tibial pulses, warm, well-perfused, no edema. NEUROLOGICAL: Cranial nerves II through XII grossly intact. Laboratory Results - last 24 hr 12/31/16 12/31/16 01/03/17 17:30 17:30 06:58 INR 1.53 H Rotavirus Report Status Negative Stool O & P Wet [place] O & P Permanent Slide Final report Active Medications Generic Name Dose Route Start Last Admin Trade Name Freq PRN Reason Stop Dose Admin Acetaminophen 650 mg 12/29/16 09:52 12/31/16 01:13 Tylenol - PO 650 mg Q4H PRN Administration FEVER OR PAIN Heparin Sodium (Porcine) 5,000 unit 12/29/16 10:00 01/02/17 22:42 Heparin - SQ Not Given BID PIHL Hydrocortisone 60 mg 01/03/17 22:00 Cortenema - RC HS PHIL Hydrocortisone Sodium Succinate 100 mg 01/03/17 12:00 01/03/17 12:33 Solu-Cortef - IVPB 100 mg Q8H PHIL Administration Potassium Chloride/Sodium Chloride 1,000 mls @ 150 mls/hr 01/02/17 08:33 07:26 Ns+20 Meq Kcl - IV 150 mls/hr ASDIR PHIL Administration Mesalamine 800 mg 01/03/17 14:00 Asacol Hd - PO TID PHIL Miconazole Nitrate 1 applic 01/01/17 22:00 01/03/17 00:03 Monistat-7 Vaginal Cream - VG 01/07/17 22:01 Not Given HS [facility] Morphine Sulfate 2 mg 12/30/16 10:26 01/03/17 08:18 Morphine Injection - IVPUSH 2 mg Q4H PRN Administration PAIN ASSESSMENT/PLAN: This is a 21 y/o F with no significant PMH who presented to the ED with 1 week of bloody diarrhea. Pt admitted for sepsis secondary to ulcerative colitis. # Sepsis secondary to ulcerative colitis -Flex sig result consistent with ulcerative colitis -Pt started on Asacol (mesalamine) 800 mg PO TID, Solucortef 100mg IVPB q8h, Cortenema 60mg RC HS (Today Day1)- until biopsies read -Abx d/c as most likely not infectious cause -GI on board -Pain control: morphine 2mg IVP q4 PRN -Zofran PRN for nausea #Hypokalemia -Will f/u next BMP #Vaginal itching -Continue Monistat 1 application PRN when symptomatic #BRBPR -Most likely d/t Ulcerative colitis -Will monitor as pt begins treatment on Asacol, Solucortef, Cortenema -Continue to monitor H&H, CBC #asymptomatic, +leukocyte esterase on UA - resolved -Urine cx: no growth DVT Prophylaxis Heparin 5000 U SQ BID F/E/N -NS+ 20 mEq Kcl -Monitor electrolytes, especially potassium -Clear liquid diet Disposition -begin d/c planning once pt active bleeding BRBPR is controlled -once pt not symptomatic Visit type - Emergency Visit Emergency Visit: No - New Patient This patient is new to me today: No - Critical Care Critical Care patient: No
--- NOTE | 2017-01-03 13:57 | PN ---
Progress Note (short form) - Note Progress Note: ID Currently off antibiotics Discusses with Dr Jarvis endoscopy shows severe ulcerative colitis Low grade temps Microbiology 12/31/16 17:30 Stool Salmonella/Shigella Culture - Preliminary 12/31/16 17:30 Stool Escherichia coli 0157 Culture - Preliminary Mr S Aureus NO ENTERIC PATHOGENS, 24 HOURS, ON PRIMARY PLATES NO ENTERIC PATHOGENS, 24 HOURS, ON PRIMARY PLATES NO ENTERIC PATHOGENS, 24 HOURS, ON PRIMARY PLATES Laboratory Tests 01/02/17 01/02/17 06:15 06:15 WBC 8.7 Hgb 8.9 L Plt Count 237 BUN 3 L D Creatinine 0.4 L Assessment Preliminary diagnosis diagnosis Plan Started on rectal and systemic corticosteroids Kindly recall if any questions Malcolm PHELAN
[2017-01-03] MEDS: MESALAMINE 800 MG TABLET.DR PO SCH ×2 (14:52→21:27)
--- NOTE | 2017-01-03 15:05 | PN ---
Teaching Attending Note Name of Resident: Gloria Daigle ATTENDING PHYSICIAN STATEMENT I saw and evaluated the patient. I reviewed the resident's note and discussed the case with the resident. I agree with the resident's findings and plan as documented. SUBJECTIVE: Patient continues to have abdominal pain and diarrhea. OBJECTIVE: Vital Signs Period Temp Pulse Resp BP Sys/Tsang Pulse Ox Last 24 Hr 98.3 F-100.8 F 94-106 16-20 96-110/53-71 98-100 HEART: S1S2, RRR LUNGS: Clear ABDOMEN: Mild diffuse tenderness EXTREMITIES: No edema Current Medications Generic Name Dose Route Start Last Admin Trade Name Freq PRN Reason Stop Dose Admin Acetaminophen 650 mg 12/29/16 09:52 12/31/16 01:13 Tylenol - PO 650 mg Q4H PRN Administration FEVER OR PAIN Heparin Sodium (Porcine) 5,000 unit 01/03/17 22:00 Heparin - SQ BID PHIL Hydrocortisone 100 mg 01/03/17 22:00 Cortenema - RC HS PHIL Hydrocortisone Sodium Succinate 100 mg 01/03/17 12:00 01/03/17 12:33 Solu-Cortef - IVPB 100 mg Q8H PHIL Administration Potassium Chloride/Sodium Chloride 1,000 mls @ 150 mls/hr 01/02/17 08:33 07:26 Ns+20 Meq Kcl - IV 150 mls/hr ASDIR PHIL Administration Mesalamine 800 mg 01/03/17 14:00 01/03/17 14:52 Asacol Hd - PO 800 mg TID PHIL Administration Miconazole Nitrate 1 applic 01/01/17 22:00 01/03/17 00:03 Monistat-7 Vaginal Cream - VG 01/07/17 22:01 Not Given HS PHIL Morphine Sulfate 2 mg 12/30/16 10:26 01/03/17 16:44 Morphine Injection - IVPUSH 2 mg Q4H PRN Administration PAIN ASSESSMENT AND PLAN: This is a 21-year-old woman with no medical history who presented to the ER with bloody diarrhea. 1. SIRS secondary to ulcerative colitis - Levaquin, Flagyl discontinued - SoluCortef, Asacol, hydrocortisone enemas started 2. Acute blood loss anemia - Continue to monitor hemoglobin 3. Hypokalemia - Replete potassium
[2017-01-03] MEDS ORDERED: PT OWN MED DRAWER 7, Y5N ONE (20:48)
[2017-01-03] MEDS: HEPARIN NA (PORCINE) 5,000 UNITS/ML 1ML VIAL SQ SCH (21:28)
[2017-01-03] MEDS: HYDROCORTISONE 100 MG/60 ML RECTAL ENEMA RC SCH (22:51)
[2017-01-04] MEDS: morphine CARPU-JECT 4 MG/1 ML DISP.SYRIN IVPUSH PRN ×4 (00:03→21:26)
[2017-01-04] MEDS: HEPARIN NA (PORCINE) 5,000 UNITS/ML 1ML VIAL SQ SCH ×3 (00:03→21:26)
[2017-01-04] MEDS: MESALAMINE 800 MG TABLET.DR PO SCH ×3 (05:22→21:25)
[2017-01-04] MEDS: HYDROCORTISONE SOD SUCCINATE 100 MG/2 ML VIAL IVPB SCH ×3 (05:22→21:23)
[2017-01-04] MEDS: SODIUM CHLORIDE 0.9%/KCL 1,000 ML IV SCH ×3 (05:28→17:06)
[2017-01-04 08:32] LABS: BASOPHIL 0.2 % (0-2.0); EOSINOPHIL 0.3 % (0-4.5); MCH 28.3 pg (25.7-33.7); MCHC 32.4 g/dl (32.0-36.0); MEAN CELL VOLUME 87.3 fl (80-96); MEAN PLT VOLUME 9.6 fl (7.5-11.1); NEUTROPHILS 83.1 % (42.8-82.8); PLATELET COUNT 289 K/MM3 (134-434); RDW 15.8 % (11.6-15.6); WHITE BLOOD COUNT 9.2 K/mm3 (4.0-10.0)
[2017-01-04 08:58] LABS: ANION GAP 7 (8-16); C-REACTIVE PROTEIN 5.8 MG/DL (0.00-0.3); CALCIUM 7.6 mg/dL (8.5-10.1); CO2 24 mmol/L (21-32); GLUCOSE,RANDOM 113 mg/dL (74-106)
[2017-01-04 08:59] LABS: ALBUMIN 1.9 g/dl (3.4-5.0); BILIRUBIN,DIRECT 0.1 mg/dL (0.0-0.2)
[2017-01-04 09:00] LABS: BILIRUBIN,TOTAL 0.5 mg/dL (0.2-1.0); CREATININE 0.3 mg/dL (0.55-1.02); TOT PROT 5.6 g/dl (6.4-8.2)
[2017-01-04 09:28] LABS: MAGNESIUM 1.9 mg/dL (1.8-2.4)
--- NOTE | 2017-01-04 09:45 | PN ---
Physical Exam: SUBJECTIVE: Patient seen and examined. She denies abdominal pain, nausea. Stools are becoming more formed. OBJECTIVE: Vital Signs Period Temp Pulse Resp BP Sys/Tsang Pulse Ox Last 24 Hr 98.1 F-100.6 F 73-105 16-20 96-110/53-72 98-100 GENERAL: The patient is awake, alert, and fully oriented, in no acute distress. LUNGS: Breath sounds equal, clear to auscultation bilaterally, no wheezes, no crackles, no accessory muscle use. HEART: Regular rate and rhythm, S1, S2 without murmur, rub or gallop. ABDOMEN: Soft, nontender, nondistended, normoactive bowel sounds, no guarding, no rebound, no hepatosplenomegaly, no masses. EXTREMITIES: 2+ pulses, warm, well-perfused, no edema. Laboratory Results - last 24 hr 12/31/16 01/01/17 01/04/17 17:30 07:40 07:35 WBC RBC Hgb Hct MCV MCH MCHC RDW Plt Count MPV Neutrophils % Lymphocytes % Monocytes % Eosinophils % Basophils % Retic Count Sodium 142 Potassium 4.1 D Chloride 111 H Carbon Dioxide 24 Anion Gap 7 L BUN 4 L D Creatinine 0.3 L D Random Glucose 113 H D Calcium 7.6 L Magnesium Total Bilirubin Direct Bilirubin AST ALT Alkaline Phosphatase C-Reactive Protein 5.8 H D Total Protein Albumin Stool O & P Wet [place] Atypical p-ANCA <1:20 Hepatitis A Ab Total Negative Hep Bs Antigen Negative Hep Bs Antibody Non reactive Hep B Core Total Ab Negative Hepatitis C Antibody 0.2 S.cerevisiae IgG Ab <20.0 S. cerevisiae IgG/IgA <20.0 O & P Permanent Slide Final report 01/04/17 01/04/17 01/04/17 07:35 07:35 07:35 WBC 9.2 RBC 3.27 L Hgb 9.3 L Hct 28.6 L MCV 87.3 MCH 28.3 MCHC 32.4 RDW 15.8 H Plt Count 289 D MPV 9.6 Neutrophils % 83.1 H D Lymphocytes % 10.8 Monocytes % 5.6 Eosinophils % 0.3 D Basophils % 0.2 Retic Count 1.70 H Sodium Potassium Chloride Carbon Dioxide Anion Gap BUN Creatinine Random Glucose Calcium Magnesium 1.9 Cancelled Total Bilirubin 0.5 D Direct Bilirubin 0.1 AST 26 ALT 21 D Alkaline Phosphatase 41 L D C-Reactive Protein Total Protein 5.6 L Albumin 1.9 L Stool O & P Wet [place] Atypical p-ANCA Hepatitis A Ab Total Hep Bs Antigen Hep Bs Antibody Hep B Core Total Ab Hepatitis C Antibody S.cerevisiae IgG Ab S. cerevisiae IgG/IgA O & P Permanent Slide Active Medications Generic Name Dose Route Start Last Admin Trade Name Freq PRN Reason Stop Dose Admin Acetaminophen 650 mg 12/29/16 09:52 12/31/16 01:13 Tylenol - PO 650 mg Q4H PRN Administration FEVER OR PAIN Heparin Sodium (Porcine) 5,000 unit 01/03/17 22:00 01/04/17 09:19 Heparin - SQ 5,000 unit BID PHIL Administration Hydrocortisone 100 mg 01/03/17 22:00 01/03/17 22:51 Cortenema - RC 100 mg HS PHIL Administration Hydrocortisone Sodium Succinate 100 mg 01/03/17 12:00 01/04/17 05:22 Solu-Cortef - IVPB 100 mg Q8H PHIL Administration Potassium Chloride/Sodium Chloride 1,000 mls @ 150 mls/hr 01/02/17 08:33 09:19 Ns+20 Meq Kcl - IV Not Given ASDIR PHIL Mesalamine 800 mg 01/03/17 14:00 01/04/17 05:22 Asacol Hd - PO 800 mg TID PHIL Administration Miconazole Nitrate 1 applic 01/01/17 22:00 01/03/17 21:30 Monistat-7 Vaginal Cream - VG 01/07/17 22:01 Not Given HS PHIL Morphine Sulfate 2 mg 12/30/16 10:26 01/04/17 09:19 Morphine Injection - IVPUSH 2 mg Q4H PRN Administration PAIN ASSESSMENT/PLAN: This is a 21-year-old woman with no medical history who presented to the ER with bloody diarrhea. 1. SIRS secondary to probable ulcerative colitis - Clinically improving; C-RP 16.6 -> 11.1 -> 5.8 - Flexible sigmoidiscopy showed friable, ulcerated, edematous mucosa with superficial ulcers suggestive of ulcerative colitis - Levaquin, Flagyl discontinued - Continue SoluCortef, Asacol, hydrocortisone enemas - Follow-up pathology 2. Acute blood loss anemia - Hemoglobin is stable, continue to monitor hemoglobin 3. Hypokalemia - Improved Visit type - Emergency Visit Emergency Visit: Yes ED Registration Date: 12/29/16 Care time: The patient presented to the Emergency Department on the above date and was hospitalized for further evaluation of their emergent condition. - New Patient This patient is new to me today: No - Critical Care Critical Care patient: No - Discharge Referral Referred to [facility] Med P.C.: No
--- NOTE | 2017-01-04 11:43 | PN ---
GI Progress Note Subjective: Describes having cramping this morning requiring analgesia however overall states feeling much better. Currently denies abdominal pain and says that bowel movements are more formed. Denies milo diarrhe - Objective Vital Signs: Vital Signs Temperature 98.1 F 01/04/17 06:00 Pulse Rate 73 01/04/17 06:00 Respiratory Rate 18 01/04/17 06:00 Blood Pressure 103/72 01/04/17 06:00 O2 Sat by Pulse Oximetry (%) 99 01/03/17 21:00 Constitutional: Calm Eyes: No: Sclera Icterus Cardiovascular: Yes: Regular Rate and Rhythm Respiratory: Yes: CTA Bilaterally Gastrointestinal Inspection: No: Distention ...Auscultate: Yes: Normoactive Bowel Sounds ...Palpate: No: Tenderness Edema: No Neurological: Yes: Alert, Oriented Labs: CBC, BMP 01/04/17 07:35 01/04/17 07:35 INR, PTT INR 1.53 (0.82-1.09) H 01/03/17 06:58 Problem List - Problems (1) Colitis Assessment/Plan: Suspected Irvin Ulcerative Colitis: Improving clincially on current therapy Continue current dose of IV steroids. if continued improvements will begin to taper Continue Cortenemas Continue Asacol HD at current Dose Add calcium w/ Vitamin D while on corticosteroids Low fiber/Low Residue diet Code(s): K52.9 - NONINFECTIVE GASTROENTERITIS AND COLITIS, UNSPECIFIED
--- NOTE | 2017-01-04 13:57 | PN ---
Progress Note (short form) - Note Progress Note: Covering for Dr. Luis Alberto Cotton Pt with colitis and diarrhea, underwent flex sig yesterday with GI. Results suggestive of ulcerative colitis. Pt was started on steroids and has been improving. Reports stools becoming more formed. Pain is essentially now mostly cramping; she states it has been hard to pass flatus. Tolerating diet. Vital Signs Period Temp Pulse Resp BP Sys/Tsang Pulse Ox Last 24 Hr 98.1 F-100.6 F 66-104 18-18 101-104/59-72 99-99 PE: abdomen soft, distended, nontender except very minimally suprapubic, minimal tympany CBC, BMP 01/04/17 07:35 01/04/17 07:35 biopsies from scope pending A/P: ulcerative colitis now on steroid treatment with slow improvement antibiotics d/c'd no surgical intervention currently indicated will sign off please recontact as needed Thank you, Celestine PHELAN Problem List - Problems (1) Ulcerative colitis, acute Code(s): K51.90 - ULCERATIVE COLITIS, UNSPECIFIED, WITHOUT COMPLICATIONS Qualifiers: Digestive disease complication type: without complication Qualified Code(s): K51.90 - Ulcerative colitis, unspecified, without complications
[2017-01-04] MEDS ORDERED: PT OWN MED DRAWER 7, Y5N ONE ×2 (14:32→21:14)
[2017-01-04] MEDS: HYDROCORTISONE 100 MG/60 ML RECTAL ENEMA RC SCH (21:25)
[2017-01-04] MEDS: MICONAZOLE NITRATE 2% VAGINAL CREAM 45 GM TUBE VG SCH (21:46)
[2017-01-05] MEDS: morphine CARPU-JECT 4 MG/1 ML DISP.SYRIN IVPUSH PRN ×4 (01:19→21:58)
[2017-01-05] MEDS: SODIUM CHLORIDE 0.9%/KCL 1,000 ML IV SCH ×4 (01:19→23:18)
[2017-01-05] MEDS: HYDROCORTISONE SOD SUCCINATE 100 MG/2 ML VIAL IVPB SCH ×3 (03:38→17:52)
[2017-01-05] MEDS: MESALAMINE 800 MG TABLET.DR PO SCH ×3 (06:08→21:57)
[2017-01-05 07:49] LABS: BASOPHIL 0.1 % (0-2.0); MCH 28.6 pg (25.7-33.7); MCHC 33.2 g/dl (32.0-36.0); MEAN CELL VOLUME 86.2 fl (80-96); NEUTROPHILS 83.2 % (42.8-82.8); PLATELET COUNT 317 K/MM3 (134-434); WHITE BLOOD COUNT 11.1 K/mm3 (4.0-10.0)
[2017-01-05 08:23] LABS: ANION GAP 7 (8-16); CALCIUM 7.6 mg/dL (8.5-10.1); CO2 24 mmol/L (21-32); CREATININE 0.3 mg/dL (0.55-1.02); GLUCOSE,RANDOM 147 mg/dL (74-106)
[2017-01-05 08:25] LABS: C-REACTIVE PROTEIN 2.6 MG/DL (0.00-0.3)
--- NOTE | 2017-01-05 09:06 | PN ---
Physical Exam: SUBJECTIVE: Patient seen and examined The patient is a 21-year-old woman with no medical history who was admitted to inpatient services with SIRS secondary to a presumed first episode of ulcerative colitis. She states that she feels better and that her stools are becoming more well formed. OBJECTIVE: Vital Signs Period Temp Pulse Resp BP Sys/Tsang Pulse Ox Last 24 Hr 97.8 F-98.6 F 63-86 17-18 101-115/56-67 98 HEART: S1S2, RRR LUNGS: Rhonchi at left base ABDOMEN: Soft, non-tender to superficial palpation, non-distended, normal BS EXTREMITIES: Trace edema Laboratory Results - last 24 hr 01/04/17 01/04/17 01/04/17 07:35 07:35 07:35 WBC RBC Hgb Hct MCV MCH MCHC RDW Plt Count MPV Neutrophils % Lymphocytes % Monocytes % Eosinophils % Basophils % Sodium 142 Potassium 4.1 D Chloride 111 H Carbon Dioxide 24 Anion Gap 7 L BUN 4 L D Creatinine 0.3 L D Random Glucose 113 H D Calcium 7.6 L Magnesium 1.9 Cancelled Total Bilirubin 0.5 D Direct Bilirubin 0.1 AST 26 ALT 21 D Alkaline Phosphatase 41 L D C-Reactive Protein 5.8 H D Total Protein 5.6 L Albumin 1.9 L 01/05/17 01/05/17 07:20 07:20 WBC 11.1 H RBC 3.00 L Hgb 8.6 L Hct 25.9 L MCV 86.2 MCH 28.6 MCHC 33.2 RDW 16.0 H Plt Count 317 MPV 9.0 Neutrophils % 83.2 H Lymphocytes % 11.3 Monocytes % 5.4 Eosinophils % 0.0 D Basophils % 0.1 Sodium 144 Potassium 4.3 Chloride 113 H Carbon Dioxide 24 Anion Gap 7 L BUN 7 D Creatinine 0.3 L Random Glucose 147 H D Calcium 7.6 L Magnesium Total Bilirubin Direct Bilirubin AST ALT Alkaline Phosphatase C-Reactive Protein 2.6 H D Total Protein Albumin Active Medications Generic Name Dose Route Start Last Admin Trade Name Freq PRN Reason Stop Dose Admin Acetaminophen 650 mg 12/29/16 09:52 12/31/16 01:13 Tylenol - PO 650 mg Q4H PRN Administration FEVER OR PAIN Heparin Sodium (Porcine) 5,000 unit 01/03/17 22:00 01/04/17 21:26 Heparin - SQ 5,000 unit BID PHIL Administration Hydrocortisone 100 mg 01/03/17 22:00 01/04/17 21:25 Cortenema - RC 100 mg HS PHIL Administration Hydrocortisone Sodium Succinate 100 mg 01/03/17 12:00 01/05/17 03:38 Solu-Cortef - IVPB 100 mg Q8H PHIL Administration Potassium Chloride/Sodium Chloride 1,000 mls @ 150 mls/hr 01/02/17 08:33 08:53 Ns+20 Meq Kcl - IV 150 mls/hr ASDIR PHIL Administration Mesalamine 800 mg 01/03/17 14:00 01/05/17 06:08 Asacol Hd - PO 800 mg TID PHIL Administration Miconazole Nitrate 1 applic 01/01/17 22:00 01/04/17 21:46 Monistat-7 Vaginal Cream - VG 01/07/17 22:01 1 applic HS PHIL Administration Morphine Sulfate 2 mg 12/30/16 10:26 01/05/17 06:08 Morphine Injection - IVPUSH 2 mg Q4H PRN Administration PAIN ASSESSMENT/PLAN: #GI Probable ulcerative colitis Appreciate GI input and Surgery input She is clinically improving CRP is down-trendin.6 -> 11.1 -> 5.8 -> 2.6 (today) Flexible sigmoidiscopy showed friable, ulcerated, edematous mucosa with superficial ulcers suggestive of ulcerative colitis Levaquin and Flagyl were discontinued Continue SoluCortef (dose lowered by GI), Asacol, hydrocortisone enemas Adding Ca+D while on corticsteroids Tylenol and Morphine pending Follow-up pathology Acute blood loss anemia Hemoglobin dropped Will obtain a 6pm CBC #PORFIRIO Acute blood loss anemia Check 6pm CBC as above #FEN Continue low fiber diet Replete lytes prn Adding Ca+D #PROPHYLAXIS Hep SQ Adding Protonix given steroids and acute illness #DISPOSITION Possible discharge tomorrow morning Visit type - Emergency Visit Emergency Visit: Yes ED Registration Date: 12/29/16 Care time: The patient presented to the Emergency Department on the above date and was hospitalized for further evaluation of their emergent condition. - New Patient This patient is new to me today: Yes Date on this admission: 01/05/17 - Critical Care Critical Care patient: No
--- NOTE | 2017-01-05 09:44 | PN ---
GI Progress Note Subjective: Sitting up eating breakfast, states feeling well Had abdominal pain yesterday, none today Stool becoming more formed per the patient - Objective Vital Signs: Vital Signs Temperature 98.1 F 01/05/17 06:00 Pulse Rate 63 01/05/17 06:00 Respiratory Rate 18 01/05/17 06:00 Blood Pressure 104/66 01/05/17 06:00 O2 Sat by Pulse Oximetry (%) 98 01/04/17 21:00 Constitutional: Calm Eyes: No: Sclera Icterus Cardiovascular: Yes: Regular Rate and Rhythm Respiratory: Yes: CTA Bilaterally ...Auscultate: Yes: Normoactive Bowel Sounds ...Palpate: No: Tenderness ...Percussion: No: Tympanitic Edema: No Neurological: Yes: Alert, Oriented Labs: CBC, BMP 01/05/17 07:20 01/05/17 07:20 INR, PTT INR 1.53 (0.82-1.09) H 01/03/17 06:58 Problem List - Problems (1) Colitis Assessment/Plan: 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
[2017-01-05] MEDS ORDERED: PANTOPRAZOLE 40 MG TABLET (FP) PO SCH (10:00)
[2017-01-05] MEDS: HEPARIN NA (PORCINE) 5,000 UNITS/ML 1ML VIAL SQ SCH ×2 (10:48→21:56)
[2017-01-05] MEDS: CALCIUM 500MG/VIT-D 200 UNITS COMBO TABLET (FP) PO SCH ×2 (10:49→21:57)
[2017-01-05] MEDS ORDERED: PT OWN MED DRAWER 7, Y5N ONE ×2 (14:22→21:53)
[2017-01-05] MEDS: MICONAZOLE NITRATE 2% VAGINAL CREAM 45 GM TUBE VG SCH (21:57)
[2017-01-05] MEDS: HYDROCORTISONE 100 MG/60 ML RECTAL ENEMA RC SCH (23:17)
[2017-01-06] MEDS: morphine CARPU-JECT 4 MG/1 ML DISP.SYRIN IVPUSH PRN ×3 (02:49→10:46)
[2017-01-06] MEDS: HYDROCORTISONE SOD SUCCINATE 100 MG/2 ML VIAL IVPB SCH ×3 (02:50→17:44)
[2017-01-06] MEDS: MESALAMINE 800 MG TABLET.DR PO SCH ×3 (06:47→21:36)
[2017-01-06 07:47] LABS: BASOPHIL 0.1 % (0-2.0); EOSINOPHIL 0.1 % (0-4.5); MCH 28.4 pg (25.7-33.7); MCHC 32.8 g/dl (32.0-36.0); MEAN CELL VOLUME 86.4 fl (80-96); NEUTROPHILS 87.6 % (42.8-82.8); PLATELET COUNT 367 K/MM3 (134-434); RDW 15.7 % (11.6-15.6); WHITE BLOOD COUNT 13.2 K/mm3 (4.0-10.0)
[2017-01-06 08:15] LABS: ANION GAP 5 (8-16); CALCIUM 7.8 mg/dL (8.5-10.1); CO2 27 mmol/L (21-32); CREATININE 0.5 mg/dL (0.55-1.02); GLUCOSE,RANDOM 156 mg/dL (74-106); MAGNESIUM 1.9 mg/dL (1.8-2.4); PHOSPHOROUS 2.9 mg/dL (2.5-4.9)
[2017-01-06] MEDS: SODIUM CHLORIDE 0.9%/KCL 1,000 ML IV SCH (10:16)
[2017-01-06] MEDS: HEPARIN NA (PORCINE) 5,000 UNITS/ML 1ML VIAL SQ SCH ×2 (10:46→21:35)
[2017-01-06] MEDS: CALCIUM 500MG/VIT-D 200 UNITS COMBO TABLET (FP) PO SCH ×2 (10:46→21:36)
--- NOTE | 2017-01-06 11:16 | PN ---
GI Progress Note Subjective: Still notices abdominal cramping, otherwise describes normalized bowel movements No rectal bleeding No fevers - Objective Vital Signs: Vital Signs Temperature 97.9 F 01/06/17 06:00 Pulse Rate 57 L 01/06/17 06:00 Respiratory Rate 18 01/06/17 06:00 Blood Pressure 113/64 01/06/17 06:00 O2 Sat by Pulse Oximetry (%) 99 01/05/17 21:00 Constitutional: Calm Eyes: No: Sclera Icterus Cardiovascular: Yes: Regular Rate and Rhythm Respiratory: Yes: CTA Bilaterally Gastrointestinal Inspection: No: Distention ...Auscultate: Yes: Normoactive Bowel Sounds ...Palpate: No: Tenderness ...Percussion: No: Tympanitic Edema: No Labs: CBC, BMP 01/06/17 06:50 01/06/17 06:50 INR, PTT INR 1.53 (0.82-1.09) H 01/03/17 06:58 Hepatic Panel Total Bilirubin 0.5 mg/dL (0.2-1.0) D 01/04/17 07:35 Direct Bilirubin 0.1 mg/dL (0.0-0.2) 01/04/17 07:35 AST 26 U/L (15-37) 01/04/17 07:35 ALT 21 U/L (12-78) D 01/04/17 07:35 Alkaline Phosphatase 41 U/L (45-117) L D 01/04/17 07:35 Albumin 1.9 g/dl (3.4-5.0) L 01/04/17 07:35 Problem List - Problems (1) Colitis Assessment/Plan: Irvin Ulcerative Colitis: Clinically improved On Hydrocortisone IV taper. Changed to PO prednisone 40mg once daily starting tomorrow Continue Asacol D 800mg PO TID Added Ferrous sulfate 325mg once daily along with Vitamin C 500mg PO daily If clinically well, no GI objection to D/C home tomorrow. Will need f/u appointment with Dr. Jarvis in 1-2 weeks for continued outpatient care Code(s): K52.9 - NONINFECTIVE GASTROENTERITIS AND COLITIS, UNSPECIFIED
--- NOTE | 2017-01-06 11:22 | PN ---
Teaching Attending Note Name of Resident: Gloria Daigle ATTENDING PHYSICIAN STATEMENT I saw and evaluated the patient. I reviewed the resident's note and discussed the case with the resident. I agree with the resident's findings and plan as documented. SUBJECTIVE: Diarrhea improved Pain slightly worsened She is hungry OBJECTIVE: Vitals noted ASSESSMENT AND PLAN: Continue current diet Taper steroids today Discontinue IVF Change to po KCL Appreciate GI input Anticipate discharge tomorrow if she continues to improve See resident note for full details
[2017-01-06] MEDS: ASCORBIC ACID 500 MG TABLET (FP) PO SCH (12:32)
[2017-01-06] MEDS: FERROUS SO4 325 MG TABLET (FP) PO SCH (12:32)
--- NOTE | 2017-01-06 12:44 | PATH ---
Surgical Pathology Report Patient Name: DAVID GALLAGHER [facility]. Rec. #: [id number] /Age/Gender: 1995 (Age: 21) / F Account: [id number] Location: [address] [place] [address]/[facility] Taken: 01/03/2017 Received: 01/03/2017 Reported: 01/06/2017 Physicians: Joanna Bower M.D. Specimen(s) Received A: BX SIGMOID @ 35CM B: BX SIGMOID COLON @20CM C: BX RECTUM Clinical History Bloody diarrhea Ulcerative colitis Final Diagnosis A. COLON, SIGMOID AT 35 CM, BIOPSY: ACTIVE COLITIS WITH ARCHITECTURAL DISTORTION CONSISTENT WITH ACTIVE IDIOPATHIC INFLAMMATORY BOWEL DISEASE. NO GRANULOMATA OR DYSPLASIA IDENTIFIED. B. COLON, SIGMOID AT 20 CM, BIOPSY: ACTIVE COLITIS WITH ARCHITECTURAL DISTORTION CONSISTENT WITH ACTIVE IDIOPATHIC INFLAMMATORY BOWEL DISEASE. NO GRANULOMATA OR DYSPLASIA IDENTIFIED. C. COLON, RECTUM, BIOPSY: ACTIVE COLITIS WITH ARCHITECTURAL DISTORTION CONSISTENT WITH ACTIVE IDIOPATHIC INFLAMMATORY BOWEL DISEASE. NO GRANULOMATA OR DYSPLASIA IDENTIFIED. Comment: The findings are morphologically consistent with ulcerative colitis. Recommend correlation with clinical findings and followup as clinically indicated. Electronically Signed Jose Hewitt M.D. Gross Description A. Received in formalin, labeled "biopsy sigmoid colon at 35 cm" are 4 mohr, irregular portions of soft tissue ranging from 0.1-0.3 cm. in greatest dimension. The specimens are submitted in toto in one cassette. B. Received in formalin, labeled "biopsy sigmoid colon at 20 cm" are 4 mohr, irregular portions of soft tissue ranging from 0.2-0.4 cm. in greatest dimension. The specimens are submitted in toto in one cassette. C. Received in formalin, labeled "biopsy rectum" are 3 mohr, irregular portions of soft tissue ranging from 0.1-0.2 cm. in greatest dimension. The specimens are submitted in toto in one cassette. 01/03/201701/03/2017
--- NOTE | 2017-01-06 16:30 | PN ---
Physical Exam: SUBJECTIVE: Patient seen and examined at bedside. Pt still having abdominal pain , however it is less than before. Tolerating diet without issues- no N/V. States that she is still having loose bowel movements with blood, but it is less frequent. OBJECTIVE: Vital Signs Period Temp Pulse Resp BP Sys/Tsang Pulse Ox Last 24 Hr 97.9 F-99.0 F 57-81 18-18 107-120/64-77 99-99 GENERAL: The patient is awake, alert, and fully oriented, in no acute distress. HEAD: Normal with no signs of trauma. EYES: PERRL, extraocular movements intact, sclera anicteric, conjunctiva clear. ENT: Ears normal, nares patent, oropharynx clear without exudates, moist mucous membranes. NECK: Trachea midline, full range of motion, supple. LUNGS: Breath sounds equal, clear to auscultation bilaterally, no wheezes, no crackles, no accessory muscle use. HEART: Regular rate and rhythm, S1, S2 without murmur, rub or gallop. ABDOMEN: Soft, mildly tender, nondistended, normoactive bowel sounds, no guarding, no rebound, no hepatosplenomegaly, no masses. EXTREMITIES: 2+ posterior tibial pulses, warm, well-perfused, no edema. NEUROLOGICAL: Cranial nerves II through XII grossly intact. Laboratory Results - last 24 hr 01/06/17 01/06/17 06:50 06:50 WBC 13.2 H RBC 3.05 L Hgb 8.6 L Hct 26.3 L MCV 86.4 MCH 28.4 MCHC 32.8 RDW 15.7 H Plt Count 367 MPV 9.0 Neutrophils % 87.6 H Lymphocytes % 7.9 L D Monocytes % 4.3 Eosinophils % 0.1 D Basophils % 0.1 Sodium 144 Potassium 4.1 Chloride 112 H Carbon Dioxide 27 Anion Gap 5 L BUN 8 Creatinine 0.5 L D Random Glucose 156 H Calcium 7.8 L Phosphorus 2.9 Magnesium 1.9 Active Medications Generic Name Dose Route Start Last Admin Trade Name Freq PRN Reason Stop Dose Admin Acetaminophen 650 mg 12/29/16 09:52 12/31/16 01:13 Tylenol - PO 650 mg Q4H PRN Administration FEVER OR PAIN Ascorbic Acid 500 mg 01/06/17 11:15 01/06/17 12:32 Vitamin C - PO 500 mg DAILY PHIL Administration Calcium Carbonate/Cholecalciferol 1 tab 01/05/17 10:00 01/06/17 10:46 Os-Jasson 500+D - PO 1 tab BID PHIL Administration Ferrous Sulfate 325 mg 01/06/17 11:15 01/06/17 12:32 Feosol - PO 325 mg DAILY PHIL Administration Heparin Sodium (Porcine) 5,000 unit 01/03/17 22:00 01/06/17 10:46 Heparin - SQ 5,000 unit BID PHIL Administration Hydrocortisone 100 mg 01/03/17 22:00 01/05/17 23:17 Cortenema - RC 100 mg HS PHIL Administration Hydrocortisone Sodium Succinate 75 mg 01/05/17 09:45 01/06/17 10:46 Solu-Cortef - IVPB 01/07/17 06:00 75 mg Q8H PHIL Administration Mesalamine 800 mg 01/03/17 14:00 01/06/17 15:07 Asacol Hd - PO 800 mg TID PHIL Administration Miconazole Nitrate 1 applic 01/01/17 22:00 01/05/17 21:57 Monistat-7 Vaginal Cream - VG 01/07/17 22:01 1 applic HS PHIL Administration Potassium Chloride 40 meq 01/07/17 10:00 K-Dur - PO DAILY PHIL Prednisone 40 mg 01/07/17 10:00 Deltasone - PO DAILY [facility] ASSESSMENT/PLAN: This is a 21 y/o F with no significant PMH who presented to the ED with 1 week of bloody diarrhea. Pt admitted for sepsis secondary to ulcerative colitis. # Sepsis secondary to ulcerative colitis -afebrile, leukocytosis 13.2 (poss from steroid rxn) -Continue mesalamine 800 mg PO TID, cortenema 100 mg RC HS, Prednisone 40mg PO qdaily, Solucortef 75 mg IVPB q8 -Calcium carbonate/cholecalciferol added while pt on steroids -Pain control with Tylenol 650 mg PO q4 PRN, morphine d/c to avoid dependence #Hypokalemia-resolved -IV NS with 20 mEq Kcl d/c -Added 40 mEq PO Kdur to regime so pt does not become hypokalemic #Vaginal itching -Continue Monistat 1 application PRN when symptomatic #BRBPR -Most likely d/t Ulcerative colitis -Pt's last Hb 8.6 (down from 9.3), will continue to monitor -Ferrous sulfate 325mg PO qdaily added with Vitamin C 500 mg PO qdaily -F/u next CBC #asymptomatic, +leukocyte esterase on UA - resolved -Urine cx: no growth DVT Prophylaxis Heparin 5000 U SQ BID F/E/N -Monitor electrolytes, especially potassium -Low fiber diet Visit type - Emergency Visit Emergency Visit: No - New Patient This patient is new to me today: No - Critical Care Critical Care patient: No
[2017-01-06] MEDS: ACETAMINOPHEN 325 MG TABLET (FP) PO PRN (21:36)
[2017-01-06] MEDS: HYDROCORTISONE 100 MG/60 ML RECTAL ENEMA RC SCH (21:36)
[2017-01-06] MEDS: MICONAZOLE NITRATE 2% VAGINAL CREAM 45 GM TUBE VG SCH (21:37)
[2017-01-07] MEDS: HYDROCORTISONE SOD SUCCINATE 100 MG/2 ML VIAL IVPB SCH (01:59)
[2017-01-07] MEDS: MESALAMINE 800 MG TABLET.DR PO SCH ×3 (07:05→21:35)
[2017-01-07 08:38] LABS: BASOPHIL 0.3 % (0-2.0); MCH 28.5 pg (25.7-33.7); MCHC 32.7 g/dl (32.0-36.0); MEAN CELL VOLUME 87.2 fl (80-96); MEAN PLT VOLUME 9.1 fl (7.5-11.1); NEUTROPHILS 87.6 % (42.8-82.8); PLATELET COUNT 400 K/MM3 (134-434); RDW 15.8 % (11.6-15.6); WHITE BLOOD COUNT 17.7 K/mm3 (4.0-10.0)
[2017-01-07 08:50] LABS: ANION GAP 8 (8-16); CO2 30 mmol/L (21-32); CREATININE 0.4 mg/dL (0.55-1.02); GLUCOSE,RANDOM 104 mg/dL (74-106)
[2017-01-07] MEDS: HEPARIN NA (PORCINE) 5,000 UNITS/ML 1ML VIAL SQ SCH (09:38)
[2017-01-07] MEDS: POTASSIUM CHLORIDE TABS 20 MEQ TABLET.ER (FP) PO SCH (09:38)
[2017-01-07] MEDS: ASCORBIC ACID 500 MG TABLET (FP) PO SCH (09:39)
[2017-01-07] MEDS: predniSONE 20 MG TABLET (UD) PO SCH (09:39)
[2017-01-07] MEDS: CALCIUM 500MG/VIT-D 200 UNITS COMBO TABLET (FP) PO SCH ×2 (09:39→21:34)
[2017-01-07] MEDS: FERROUS SO4 325 MG TABLET (FP) PO SCH (09:39)
--- NOTE | 2017-01-07 10:01 | PN ---
GI Progress Note Subjective: Passed stool and clotted blood after Cortenema last night. Cramping tends to occur after the enema Otherwise states feeling well Biopsies from flex sig consistent with IBD - Objective Vital Signs: Vital Signs Temperature 99.2 F 01/07/17 07:51 Pulse Rate 63 01/07/17 07:51 Respiratory Rate 20 01/07/17 07:51 Blood Pressure 116/79 01/07/17 07:51 O2 Sat by Pulse Oximetry (%) 100 01/06/17 22:00 Constitutional: Calm Eyes: No: Sclera Icterus Cardiovascular: Yes: Regular Rate and Rhythm Respiratory: Yes: CTA Bilaterally Gastrointestinal Inspection: No: Scars ...Auscultate: Yes: Normoactive Bowel Sounds ...Palpate: No: Tenderness ...Percussion: No: Tympanitic Edema: No Neurological: Yes: Alert, Oriented Labs: CBC, BMP 01/07/17 07:15 01/07/17 07:15 INR, PTT INR 1.53 (0.82-1.09) H 01/03/17 06:58 Hepatic Panel Total Bilirubin 0.5 mg/dL (0.2-1.0) D 01/04/17 07:35 Direct Bilirubin 0.1 mg/dL (0.0-0.2) 01/04/17 07:35 AST 26 U/L (15-37) 01/04/17 07:35 ALT 21 U/L (12-78) D 01/04/17 07:35 Alkaline Phosphatase 41 U/L (45-117) L D 01/04/17 07:35 Albumin 1.9 g/dl (3.4-5.0) L 01/04/17 07:35 Problem List - Problems (1) Ulcerative colitis Assessment/Plan: Stopped cortenema. May be precipitating abdominal cramping Monitor for ongoing bleeding. Suspect still residual active colitis, plus she is on A/C, had biopsies performed and had a baseline coagulopathy. Would reevealuate coagulopathy as well. Repeat CBC put in for this evening. WBC has increased however she has been on corticosteroid therapy. Would monitor clinically Continue prednisone 40mg once daily, Asacol HD Iron / calcium with vitamin D Would monitor for today and hold D/C Code(s): K51.90 - ULCERATIVE COLITIS, UNSPECIFIED, WITHOUT COMPLICATIONS
[2017-01-07] MEDS ORDERED: ACETAMINOPHEN 325 MG TABLET (FP) PO PRN (12:09)
[2017-01-07] MEDS ORDERED: oxyCODONE HCL 5 MG TABLET PO PRN (12:59)
[2017-01-07] MEDS ORDERED: PT OWN MED DRAWER 7, Y5N ONE ×2 (13:59→14:10)
--- NOTE | 2017-01-07 16:04 | PN ---
Teaching Attending Note Name of Resident: Gloria Daigle ATTENDING PHYSICIAN STATEMENT I saw and evaluated the patient. I reviewed the resident's note and discussed the case with the resident. I agree with the resident's findings and plan as documented. SUBJECTIVE:c/o abdominal pain, not relieved with tylenol. states her diarrhea has improved with less frequency however continues to have BRBPR. denies Cp, SOB , fever, chills, N/V. tolerating diet OBJECTIVE: Last Vital Signs Temp Pulse Resp BP Pulse Ox 98.2 F 75 18 119/75 96 01/07/17 15:30 01/07/17 15:30 01/07/17 15:30 01/07/17 15:30 01/07/17 10:00 General NAD Abdomen RLQ/LLQ tenderness soft hypoactive BS. ASSESSMENT AND PLAN: 21-year-old woman with no medical history who presented to the ER with bloody diarrhea. 1. SIRS secondary to probable ulcerative colitis- clinically improving, however continues to have bloody BM. will start percocet for pain. on mesalamine, prednisone. low fiber diet. autoimmune workup pending 2. Acute blood loss anemia- due to bleeding likely due to colitis. continues to slowly trend down. repeat CBC today. if continues to trend down will also need to consider coagulopathic cause. will consider hematology eval. on iron supplements. no indication for txn at this time 3. Hypokalemia-resolved 4. Leukocytosis- likely due to steroids. no signs on active infection. received course of ceftriaxone/flagyl for suspected infectious colitis. afebrile 5. Hypocalcemia- toby/vit d supplementation. on steroid therapy 6. vaginal pruritis- resolved per pt. received miconazole x1. will need to monitor closely as on steroid therapy which increases likelihood of fungal infections 7. DVT ppx- EAM. hold pharmacologic anticoagulation in setting of acute blood loss anemia
--- NOTE | 2017-01-07 16:22 | PN ---
Physical Exam: SUBJECTIVE: Patient seen and examined at bedside. Pt still having mild abdominal pain. Pt states that BMs are now formed, however they are still bloody. Denies SOB, chest pain, palpitations, or lightheadedness. OBJECTIVE: Vital Signs Period Temp Pulse Resp BP Sys/Tsang Pulse Ox Last 24 Hr 98.2 F-99.4 F 55-75 16-20 110-131/57-86 96-100 GENERAL: The patient is awake, alert, and fully oriented, in no acute distress. HEAD: Normal with no signs of trauma. EYES: PERRL, extraocular movements intact, sclera anicteric, conjunctiva clear. NECK: Trachea midline, full range of motion, supple. LUNGS: Breath sounds equal, clear to auscultation bilaterally, no wheezes, no crackles, no accessory muscle use. HEART: Regular rate and rhythm, S1, S2 without murmur, rub or gallop. ABDOMEN: Soft, mildly tender, nondistended, normoactive bowel sounds, no guarding, no rebound EXTREMITIES: 2+ posterior tibial pulses, warm, well-perfused, no edema. NEUROLOGICAL: Cranial nerves II through XII grossly intact. Laboratory Results - last 24 hr 01/07/17 01/07/17 07:15 07:15 WBC 17.7 H D RBC 2.82 L Hgb 8.0 L Hct 24.6 L MCV 87.2 MCH 28.5 MCHC 32.7 RDW 15.8 H Plt Count 400 MPV 9.1 Neutrophils % 87.6 H Lymphocytes % 7.9 L Monocytes % 4.2 Eosinophils % 0.0 D Basophils % 0.3 Sodium 145 Potassium 3.7 Chloride 107 Carbon Dioxide 30 Anion Gap 8 BUN 8 Creatinine 0.4 L Random Glucose 104 D Calcium 8.0 L Active Medications Generic Name Dose Route Start Last Admin Trade Name Freq PRN Reason Stop Dose Admin Acetaminophen 650 mg 12/29/16 09:52 01/06/17 21:36 Tylenol - PO 650 mg Q4H PRN Administration FEVER OR PAIN Acetaminophen 325 mg 01/07/17 12:09 Tylenol - PO Q4H PRN PAIN Ascorbic Acid 500 mg 01/06/17 11:15 01/07/17 09:39 Vitamin C - PO 500 mg DAILY PHIL Administration Calcium Carbonate/Cholecalciferol 1 tab 01/05/17 10:00 01/07/17 09:39 Os-Jasson 500+D - PO 1 tab BID PHIL Administration Ferrous Sulfate 325 mg 01/06/17 11:15 01/07/17 09:39 Feosol - PO 325 mg DAILY PHIL Administration Heparin Sodium (Porcine) 5,000 unit 01/03/17 22:00 01/07/17 09:38 Heparin - SQ 5,000 unit BID PHIL Administration Mesalamine 800 mg 01/03/17 14:00 01/07/17 14:05 Asacol Hd - PO 800 mg TID PHIL Administration Miconazole Nitrate 1 applic 01/01/17 22:00 01/06/17 21:37 Monistat-7 Vaginal Cream - VG 01/07/17 22:01 1 applic HS PHIL Administration Oxycodone HCl 5 mg 01/07/17 12:59 Roxicodone - PO Q4H PRN PAIN Potassium Chloride 40 meq 01/07/17 10:00 01/07/17 09:38 K-Dur - PO 40 meq DAILY PHIL Administration Prednisone 40 mg 01/07/17 10:00 01/07/17 09:39 Deltasone - PO 40 mg DAILY PHIL Administration ASSESSMENT/PLAN: This is a 21 y/o F with no significant PMH who presented to the ED with 1 week of bloody diarrhea. Pt admitted for sepsis secondary to ulcerative colitis. # Sepsis secondary to ulcerative colitis -afebrile, leukocytosis 17.7 (most likely from steroids) -Continue mesalamine 800 mg PO TID, cortenema 100 mg RC HS, Prednisone 40mg PO qdaily, Solucortef 75 mg IVPB q8 -Calcium carbonate/cholecalciferol added while pt on steroids -Pain control with Tylenol 650 mg PO q4 PRN, Perkoset 5mg dosage added #Hypokalemia-resolved -Added 40 mEq PO Kdur to regime so pt does not become hypokalemic #BRBPR -Most likely d/t Ulcerative colitis -Pt's last Hb 8 (down from 8.6) if continues to decrease, will consult Hematology to determine etiology -Ferrous sulfate 325mg PO qdaily added with Vitamin C 500 mg PO qdaily -F/u next CBC at 6pm today, 01/07/17 - if continues to decrease, will consult Hematology to determine etiology #asymptomatic, +leukocyte esterase on UA - resolved -Urine cx: no growth #Vaginal itching-resolved DVT Prophylaxis -EAM -d/c Heparin d/t anemia F/E/N -Monitor electrolytes, especially potassium -Low fiber diet Visit type - Emergency Visit Emergency Visit: No - New Patient This patient is new to me today: No - Critical Care Critical Care patient: No
[2017-01-07 16:26] LABS: C-ANCA <1:20 titer (Neg:<1:20); MYELOPEROXIDASE ANTIBODY <9.0 U/mL (0.0-9.0); P-ANCA <1:20 titer (Neg:<1:20); PROTEINASE-3 ANTIBODY 22.4 U/mL (0.0-3.5)
[2017-01-07 19:57] LABS: BASOPHIL 0.1 % (0-2.0); MCH 29.3 pg (25.7-33.7); MCHC 33.5 g/dl (32.0-36.0); MEAN CELL VOLUME 87.3 fl (80-96); NEUTROPHILS 88.8 % (42.8-82.8); PLATELET COUNT 483 K/MM3 (134-434); RDW 15.7 % (11.6-15.6); WHITE BLOOD COUNT 18.6 K/mm3 (4.0-10.0)
[2017-01-07] MEDS: MICONAZOLE NITRATE 2% VAGINAL CREAM 45 GM TUBE VG SCH (21:34)
[2017-01-08] MEDS: MESALAMINE 800 MG TABLET.DR PO SCH ×3 (06:28→21:21)
[2017-01-08 07:51] LABS: MCH 28.6 pg (25.7-33.7); MCHC 32.9 g/dl (32.0-36.0); MEAN CELL VOLUME 86.8 fl (80-96); MEAN PLT VOLUME 8.3 fl (7.5-11.1); PLATELET COUNT 410 K/MM3 (134-434); RDW 15.9 % (11.6-15.6); WHITE BLOOD COUNT 20.2 K/mm3 (4.0-10.0)
[2017-01-08 08:24] LABS: ALBUMIN 1.9 g/dl (3.4-5.0); ANION GAP 7 (8-16); BILIRUBIN,TOTAL 0.4 mg/dL (0.2-1.0); C-REACTIVE PROTEIN 0.8 MG/DL (0.00-0.3); CALCIUM 7.7 mg/dL (8.5-10.1); CO2 29 mmol/L (21-32); CREATININE 0.4 mg/dL (0.55-1.02); GLUCOSE,RANDOM 74 mg/dL (74-106); SGOT/AST 20 U/L (15-37); SGPT/ALT 24 U/L (12-78); TOT PROT 4.8 g/dl (6.4-8.2)
[2017-01-08 08:25] LABS: ALK PHOS 48 U/L (45-117)
[2017-01-08] MEDS: predniSONE 20 MG TABLET (UD) PO SCH (10:02)
[2017-01-08] MEDS: FERROUS SO4 325 MG TABLET (FP) PO SCH (10:02)
[2017-01-08] MEDS: ASCORBIC ACID 500 MG TABLET (FP) PO SCH (10:02)
[2017-01-08] MEDS: PANTOPRAZOLE 40 MG TABLET (FP) PO SCH (10:03)
[2017-01-08] MEDS: CALCIUM 500MG/VIT-D 200 UNITS COMBO TABLET (FP) PO SCH ×2 (10:03→21:21)
[2017-01-08] MEDS: POTASSIUM CHLORIDE TABS 20 MEQ TABLET.ER (FP) PO SCH (10:03)
[2017-01-08 12:39] LABS: ANISOCYTOSIS 2+; PLATELET ESTIMATE ADEQUATE (NORMAL)
--- NOTE | 2017-01-08 13:02 | PN ---
GI Progress Note Subjective: Initially found sitting in solarium with her mother. No acute events Pepper states feeling well. Describes two semiformed green, non-bloody BM's last night. She does describe more LUQ discomfort after "tensing up when she had her blood drawn this morning". No fevers reported. Hgb was noted to be 6.8 this morning - Objective Vital Signs: Vital Signs Temperature 98.1 F 01/08/17 06:00 Pulse Rate 70 01/08/17 06:00 Respiratory Rate 16 01/08/17 06:00 Blood Pressure 108/53 01/08/17 06:00 O2 Sat by Pulse Oximetry (%) 96 01/07/17 22:00 Constitutional: Calm Eyes: No: Sclera Icterus Cardiovascular: Yes: Regular Rate and Rhythm Respiratory: Yes: CTA Bilaterally Gastrointestinal Inspection: No: Distention ...Auscultate: Yes: Normoactive Bowel Sounds ...Palpate: Yes: Tenderness (Mild TTP LUQ/flank). No: Splenomegaly ...Percussion: No: Tympanitic Edema: No Neurological: Yes: Alert, Oriented Labs: CBC, BMP 01/08/17 06:00 01/08/17 07:00 INR, PTT INR 1.53 (0.82-1.09) H 01/03/17 06:58 Hepatic Panel Total Bilirubin 0.4 mg/dL (0.2-1.0) 01/08/17 07:00 Direct Bilirubin 0.1 mg/dL (0.0-0.2) 01/04/17 07:35 AST 20 U/L (15-37) D 01/08/17 07:00 ALT 24 U/L (12-78) 01/08/17 07:00 Alkaline Phosphatase 48 U/L (45-117) 01/08/17 07:00 Albumin 1.9 g/dl (3.4-5.0) L 01/08/17 07:00 Problem List - Problems (1) Ulcerative colitis Assessment/Plan: Overall, Pepper continues to appear clinically improved. She is tolerating PO and there has been no further rectal bleeding. Her Hgb was 6.8 this morning and a blood transfusion has been ordered. A repeat CBC prior to transfusion was offered however Pepper has declined and instead opted to have the blood transfusion. Leukocytosis has worsened. ? if secondary to steroid effect. She received her last cortenema yesterday. This was stopped due to worsening abdominal cramping and loose BM's after administrations. If continued worsened left sided abdominal pain, would advise repeat CT scan of the abdomen and pelvis If continued decline in H/H without overt bleeding, consider hematology evaluation Continue current medication regimen Code(s): K51.90 - ULCERATIVE COLITIS, UNSPECIFIED, WITHOUT COMPLICATIONS
[2017-01-08 14:16] LABS: TPMT ACTIVITY 15.6 (.)
--- NOTE | 2017-01-08 14:59 | PN ---
Teaching Attending Note Name of Resident: Gloria Daigle ATTENDING PHYSICIAN STATEMENT I saw and evaluated the patient. I reviewed the resident's note and discussed the case with the resident. I agree with the resident's findings and plan as documented. SUBJECTIVE:clinically improved. stools are no longer bloody and more formed. continues to have some mild RLQ/LLQ pain. denies CP, SOB, fever, chills, N/V OBJECTIVE: Last Vital Signs Temp Pulse Resp BP Pulse Ox 98.1 F 70 16 108/53 96 01/08/17 06:00 01/08/17 06:00 01/08/17 06:00 01/08/17 06:00 01/07/17 22:00 General NAD Abdomen soft +RLQ tenderness normoactive BS ASSESSMENT AND PLAN: 21-year-old woman with no medical history who presented to the ER with bloody diarrhea. 1. SIRS secondary to probable ulcerative colitis- clinically improving, stools are more formed. will cont mesalamine and steroids. on mesalamine, prednisone. low fiber diet. autoimmune workup pending 2. Acute blood loss anemia- due to bleeding likely due to colitis. Hgb dropped to 6.8 after remaining stable yesterday. at first pt refused transfusion. then offered to repeat cbc counts to ensure that drop in Hgb is accurate as was stable yesterday and no repeat bloody BM. explained will need to repeat cbc after blood transfusion to ensure hgb corrected accurately. 3. Hypokalemia-resolved 4. Leukocytosis- likely due to steroids. no signs on active infection. received course of ceftriaxone/flagyl for suspected infectious colitis. afebrile 5. Hypocalcemia- toby/vit d supplementation. on steroid therapy 6. vaginal pruritis- resolved per pt. received miconazole x1. will need to monitor closely as on steroid therapy which increases likelihood of fungal infections 7. DVT ppx- EAM. hold pharmacologic anticoagulation in setting of acute blood loss anemia
[2017-01-08] MEDS ORDERED: PT OWN MED DRAWER 7, Y5N ONE (15:05)
--- NOTE | 2017-01-08 16:59 | PN ---
Physical Exam: SUBJECTIVE: Patient seen and examined at bedside. Pt still is endorsing mild abdominal discomfort, however states that she is no longer having bloody BMs. Mother and Father expressed concern over blood transfusion. Pt denies SOB, palpitations, or lightheadedness. OBJECTIVE: Vital Signs Period Temp Pulse Resp BP Sys/Tsang Pulse Ox Last 24 Hr 97.7 F-98.9 F 69-83 14-20 107-122/53-69 96 GENERAL: The patient is awake, alert, and fully oriented, in no acute distress. HEAD: Normal with no signs of trauma. EYES: PERRL, extraocular movements intact, sclera anicteric, conjunctiva clear. NECK: Trachea midline, supple. LUNGS: Breath sounds equal, clear to auscultation bilaterally, no wheezes, no crackles, no accessory muscle use. HEART: Regular rate and rhythm, S1, S2 without murmur, rub or gallop. ABDOMEN: Soft, mildly tender, nondistended, normoactive bowel sounds, no guarding, no rebound, no hepatosplenomegaly, no masses. EXTREMITIES: 2+ posterior tibial pulses, warm, well-perfused, no edema. NEUROLOGICAL: Cranial nerves II through XII grossly intact. Laboratory Results - last 24 hr 01/03/17 01/04/17 01/07/17 13:50 07:35 19:40 WBC 18.6 H RBC 2.79 L Hgb 8.2 L Hct 24.4 L MCV 87.3 MCH 29.3 MCHC 33.5 RDW 15.7 H Plt Count 483 H D MPV 9.0 Neutrophils % 88.8 H Lymphocytes % 7.0 L Monocytes % 4.1 Eosinophils % 0.0 Basophils % 0.1 Band Neutrophils Nucleated RBCs Differential Comment Platelet Estimate Anisocytosis Macrocytosis Factor V Test Method Sodium Potassium Chloride Carbon Dioxide Anion Gap BUN Creatinine Creat Clearance w eGFR Random Glucose Calcium Total Bilirubin AST ALT Alkaline Phosphatase C-Reactive Protein Total Protein Albumin TPMT Activity, Quant 15.6 Stool O & P Wet [place] c-ANCA <1:20 Proteinase 3 (PR3) 22.4 H p-ANCA <1:20 Atypical p-ANCA <1:20 Myeloperoxidase Ab <9.0 O & P Permanent Slide Blood Type Antibody Screen Crossmatch 01/08/17 01/08/17 01/08/17 06:00 07:00 09:28 WBC 20.2 H RBC 2.37 L Hgb 6.8 L* D Hct 20.6 L D MCV 86.8 MCH 28.6 MCHC 32.9 RDW 15.9 H Plt Count 410 MPV 8.3 Neutrophils % 80.0 Lymphocytes % 15.0 D Monocytes % 3.0 L Eosinophils % Basophils % Band Neutrophils 2.0 D Nucleated RBCs 1 H Differential Comment Manual diff done Platelet Estimate Adequate Anisocytosis 2+ Macrocytosis Few Factor V Test Method Sodium 143 Potassium 3.2 L Chloride 107 Carbon Dioxide 29 Anion Gap 7 L BUN 7 Creatinine 0.4 L Creat Clearance w eGFR > 60 Random Glucose 74 D Calcium 7.7 L Total Bilirubin 0.4 AST 20 D ALT 24 Alkaline Phosphatase 48 C-Reactive Protein 0.8 H D Total Protein 4.8 L Albumin 1.9 L TPMT Activity, Quant Stool O & P Wet Mount c-ANCA Proteinase 3 (PR3) p-ANCA Atypical p-ANCA Myeloperoxidase Ab O & P Permanent Slide Blood Type O POSITIVE Antibody Screen Negative Crossmatch See Detail Active Medications Generic Name Dose Route Start Last Admin Trade Name Freq PRN Reason Stop Dose Admin Acetaminophen 650 mg 12/29/16 09:52 01/06/17 21:36 Tylenol - PO 650 mg Q4H PRN Administration FEVER OR PAIN Acetaminophen 325 mg 01/07/17 12:09 Tylenol - PO Q4H PRN PAIN Ascorbic Acid 500 mg 01/06/17 11:15 01/08/17 10:02 Vitamin C - PO 500 mg DAILY PHIL Administration Calcium Carbonate/Cholecalciferol 1 tab 01/05/17 10:00 01/08/17 10:03 Os-Jassno 500+D - PO 1 tab BID PHIL Administration Ferrous Sulfate 325 mg 01/06/17 11:15 01/08/17 10:02 Feosol - PO 325 mg DAILY PHIL Administration Mesalamine 800 mg 01/03/17 14:00 01/08/17 15:07 Asacol Hd - PO 800 mg TID PHIL Administration Oxycodone HCl 5 mg 01/07/17 12:59 01/08/17 02:52 Roxicodone - PO 5 mg Q4H PRN Administration PAIN Pantoprazole Sodium 40 mg 01/08/17 10:00 01/08/17 10:03 Protonix - PO 40 mg DAILY PHIL Administration Potassium Chloride 40 meq 01/07/17 10:00 08/09/17 10:03 K-Dur - PO 40 meq DAILY PHIL Administration Prednisone 40 mg 01/07/17 10:00 01/08/17 10:02 Deltasone - PO 40 mg DAILY PHIL Administration ASSESSMENT/PLAN: This is a 21 y/o F with no significant PMH who presented to the ED with 1 week of bloody diarrhea. Pt admitted for sepsis secondary to ulcerative colitis. # Sepsis secondary to ulcerative colitis -afebrile, leukocytosis 20.2 (most likely from steroids) -Continue mesalamine 800 mg PO TID, Prednisone 40mg PO qdaily (will continue over next two months), Solucortef 75 mg IVPB q8 -Calcium carbonate/cholecalciferol added while pt on steroids -Pain control with Tylenol 650 mg PO q4 PRN, Roxicodone 5mg PO q4 PRN #Hypokalemia-resolved -Added 40 mEq PO Kdur to regime so pt does not become hypokalemic #Acute blood loss anemia -Most likely d/t Ulcerative colitis -Pt receiving transfusion of 1 unit of PRBCs started at 2:10pm today, put in a stat CBC to F/u Hb for 6:20pm -Follow up CBC tomorrow AM -Ferrous sulfate 325mg PO qdaily added with Vitamin C 500 mg PO qdaily #asymptomatic, +leukocyte esterase on UA - resolved -Urine cx: no growth #Vaginal itching-resolved DVT Prophylaxis -EAM -d/c Heparin d/t anemia F/E/N -Monitor electrolytes, especially potassium -Low fiber diet Visit type - Emergency Visit Emergency Visit: No - New Patient This patient is new to me today: No - Critical Care Critical Care patient: No
[2017-01-08 18:57] LABS: MCH 29.4 pg (25.7-33.7); MCHC 33.5 g/dl (32.0-36.0); MEAN CELL VOLUME 87.8 fl (80-96); MEAN PLT VOLUME 8.5 fl (7.5-11.1); PLATELET COUNT 522 K/MM3 (134-434); RDW 15.7 % (11.6-15.6); WHITE BLOOD COUNT 22.8 K/mm3 (4.0-10.0)
[2017-01-09] MEDS: MESALAMINE 800 MG TABLET.DR PO SCH ×2 (06:06→15:13)
[2017-01-09 08:01] LABS: BASOPHIL 0.3 % (0-2.0); EOSINOPHIL 1.5 % (0-4.5); MCHC 33.1 g/dl (32.0-36.0); MEAN CELL VOLUME 87.6 fl (80-96); NEUTROPHILS 76.4 % (42.8-82.8); PLATELET COUNT 437 K/MM3 (134-434); RDW 15.2 % (11.6-15.6); WHITE BLOOD COUNT 14.5 K/mm3 (4.0-10.0)
[2017-01-09 08:41] LABS: ANION GAP 7 (8-16); C-REACTIVE PROTEIN 1.3 MG/DL (0.00-0.3); CALCIUM 7.7 mg/dL (8.5-10.1); CO2 30 mmol/L (21-32); CREATININE 0.5 mg/dL (0.55-1.02); GLUCOSE,RANDOM 81 mg/dL (74-106)
[2017-01-09 10:24] VITALS: BP 109/64; PULSE 84; TEMP 98.6
[2017-01-09] MEDS: POTASSIUM CHLORIDE TABS 20 MEQ TABLET.ER (FP) PO SCH (10:29)
[2017-01-09] MEDS: ASCORBIC ACID 500 MG TABLET (FP) PO SCH (10:30)
[2017-01-09] MEDS: predniSONE 20 MG TABLET (UD) PO SCH (10:30)
[2017-01-09] MEDS: PANTOPRAZOLE 40 MG TABLET (FP) PO SCH (10:30)
[2017-01-09] MEDS: FERROUS SO4 325 MG TABLET (FP) PO SCH (10:30)
[2017-01-09] MEDS: CALCIUM 500MG/VIT-D 200 UNITS COMBO TABLET (FP) PO SCH (10:30)
--- NOTE | 2017-01-09 14:30 | PN ---
Teaching Attending Note Name of Resident: Gloria Daigle ATTENDING PHYSICIAN STATEMENT I saw and evaluated the patient. I reviewed the resident's note and discussed the case with the resident. I agree with the resident's findings and plan as documented. SUBJECTIVE:pain has resolved. 2 BM in past 24H are more formed. no blood noted. denies CP, SOB< fever, chills OBJECTIVE: Last Vital Signs Temp Pulse Resp BP Pulse Ox 98.6 F 84 18 109/64 96 01/09/17 10:00 01/09/17 10:01/09/17 10:01/09/17 10:01/07/17 22:00 General NAD Abdomen soft NT/ND normoactive BS ASSESSMENT AND PLAN: 21-year-old woman with no medical history who presented to the ER with bloody diarrhea. 1. SIRS secondary to ulcerative colitis- clinically improving, stools are more formed. will cont mesalamine and steroids. on mesalamine, prednisone. low fiber diet. autoimmune workup pending 2. Acute blood loss anemia- due to bleeding likely due to colitis. s/p 1 unit PRBC> hgb now stable. no indication for transfusion. cont iron supplements. 3. Hypokalemia-resolved 4. Leukocytosis- likely due to steroids. no signs on active infection. received course of ceftriaxone/flagyl for suspected infectious colitis. afebrile 5. Hypocalcemia- toby/vit d supplementation. on steroid therapy 6. vaginal pruritis- resolved per pt. received miconazole x1. will need to monitor closely as on steroid therapy which increases likelihood of fungal infections 7. DVT ppx- EAM. 8. d/c home with close GI follow up. explained to pt and mother that will need to f/u with GI in 1 week and will need close surveillance. will need full colonoscopy once acute flare has resolved. verbalized understanding and agreed with plan
[2017-01-09] MEDS ORDERED: PT OWN MED DRAWER 7, Y5N ONE (15:11)
--- NOTE | 2017-01-09 17:07 | DS ---
Physical Exam: SUBJECTIVE: Patient seen and examined at bedside today. Pt states that her BM's have been more well-formed and she has not noted any blood. She does not feel SOB, chest pain, palpitations or any lightheadedness. Pt expressing readiness to go home. OBJECTIVE: Vital Signs Period Temp Pulse Resp BP Sys/Tsang Pulse Ox Last 24 Hr 98.1 F-99.4 F 65-84 18-20 109-112/63-70 100 PHYSICAL EXAM GENERAL: The patient is awake, alert, and fully oriented, in no acute distress. HEAD: Normal with no signs of trauma. EYES: PERRL, extraocular movements intact, sclera anicteric, conjunctiva clear. ENT: Ears normal, nares patent, oropharynx clear without exudates, moist mucous membranes. NECK: Trachea midline, full range of motion, supple. LUNGS: Breath sounds equal, clear to auscultation bilaterally, no wheezes, no crackles, no accessory muscle use. HEART: Regular rate and rhythm, S1, S2 without murmur, rub or gallop. ABDOMEN: Soft, nontender, nondistended, normoactive bowel sounds, no guarding, no rebound, no hepatosplenomegaly, no masses. EXTREMITIES: 2+ posterior tibial pulses, warm, well-perfused, no edema. NEUROLOGICAL: Cranial nerves II through XII grossly intact. VITALS TREND/LABS Vitals Trend 12/29/16 12/29/16 12/29/16 02:30 05:14 07:42 Temperature 98.5 F 99.1 F 98.6 F Pulse Rate Respiratory Rate Blood Pressure O2 Sat by Pulse Oximetry (%) 12/29/16 12/29/16 12/29/16 10:00 15:22 19:20 Temperature 102.4 F H 99.1 F 100.5 F H Pulse Rate 120 H 120 H 85 Respiratory Rate Blood Pressure O2 Sat by Pulse Oximetry (%) 12/29/16 12/30/16 12/30/16 21:20 02:51 06:00 Temperature 102.4 F H 101.5 F H 99.1 F Pulse Rate 123 H 109 H Respiratory Rate Blood Pressure O2 Sat by Pulse Oximetry (%) 12/30/16 12/30/16 12/30/16 14:14 18:36 19:04 Temperature 99.3 F 101.5 F H 100.4 F H Pulse Rate 112 H 107 H Respiratory Rate Blood Pressure O2 Sat by Pulse Oximetry (%) 12/30/16 12/31/16 12/31/16 21:33 00:57 02:04 Temperature 100.5 F H 102.6 F H 100.8 F H Pulse Rate 104 H Respiratory Rate Blood Pressure O2 Sat by Pulse Oximetry (%) 12/31/16 12/31/16 12/31/16 03:50 06:21 08:27 Temperature 100.1 F H 99.5 F 100.1 F H Pulse Rate 100 H Respiratory Rate Blood Pressure O2 Sat by Pulse Oximetry (%) 12/31/16 12/31/16 12/31/16 08:30 14:43 18:35 Temperature 100.9 F H 100.2 F H Pulse Rate 108 H 108 H Respiratory Rate Blood Pressure O2 Sat by Pulse 98 Oximetry (%) 12/31/16 12/31/16 01/01/17 21:00 21:55 02:42 Temperature 101.2 F H 99.4 F Pulse Rate 105 H Respiratory Rate Blood Pressure O2 Sat by Pulse 98 Oximetry (%) 01/01/17 01/01/17 01/01/17 06:34 09:00 10:00 Temperature 98.1 F 98.1 F Pulse Rate 93 H 96 H Respiratory Rate Blood Pressure O2 Sat by Pulse 98 Oximetry (%) 01/01/17 01/01/17 01/01/17 15:42 18:50 21:00 Temperature 99.9 F H 98.2 F Pulse Rate 95 H 98 H Respiratory Rate Blood Pressure O2 Sat by Pulse 98 Oximetry (%) 01/01/17 01/02/17 01/02/17 22:54 06:50 08:41 Temperature 99.8 F H 99.9 F H Pulse Rate 102 H Respiratory Rate Blood Pressure O2 Sat by Pulse 99 Oximetry (%) 01/02/17 01/02/17 01/02/17 09:00 15:07 18:43 Temperature 99.1 F 100.8 F H 100.1 F H Pulse Rate 96 H 104 H 104 H Respiratory Rate Blood Pressure O2 Sat by Pulse Oximetry (%) 01/02/17 01/03/17 01/03/17 22:00 02:00 02:56 Temperature 99.9 F H 100.7 F H 99.7 F H Pulse Rate 106 H Respiratory Rate Blood Pressure O2 Sat by Pulse Oximetry (%) 01/03/17 01/03/17 01/03/17 06:00 09:45 11:11 Temperature 99.8 F H 100.6 F H 98.3 F Pulse Rate 95 H 96 H 105 H Respiratory Rate Blood Pressure O2 Sat by Pulse Oximetry (%) 01/03/17 01/03/17 01/03/17 11:26 11:41 12:15 Temperature 100.1 F H Pulse Rate 94 H 96 H 96 H Respiratory Rate Blood Pressure O2 Sat by Pulse Oximetry (%) 01/03/17 01/03/17 01/03/17 15:16 19:57 22:00 Temperature 100.6 F H 99.7 F H 99.5 F Pulse Rate 100 H 95 H 104 H Respiratory Rate Blood Pressure O2 Sat by Pulse Oximetry (%) 01/04/17 01/04/17 01/04/17 06:00 10:00 15:15 Temperature 98.1 F 98.6 F 98 F Pulse Rate 73 66 86 Respiratory Rate Blood Pressure O2 Sat by Pulse Oximetry (%) 01/04/17 01/04/17 01/05/17 19:00 22:00 06:00 Temperature 97.8 F 98.2 F Pulse Rate 75 77 Respiratory 18 Rate Blood Pressure O2 Sat by Pulse Oximetry (%) 01/05/17 01/05/17 01/05/17 09:00 10:00 15:16 Temperature Pulse Rate Respiratory 18 18 18 Rate Blood Pressure O2 Sat by Pulse Oximetry (%) 01/05/17 01/05/17 01/06/17 19:00 22:00 06:00 Temperature 97.9 F Pulse Rate Respiratory 18 18 18 Rate Blood Pressure 113/64 O2 Sat by Pulse Oximetry (%) 01/06/17 01/06/17 01/06/17 10:00 14:45 18:00 Temperature 98.3 F 98.8 F 98.2 F Pulse Rate Respiratory 18 18 18 Rate Blood Pressure 107/77 120/75 116/57 O2 Sat by Pulse Oximetry (%) 01/06/17 01/07/17 01/07/17 22:00 07:51 09:00 Temperature 98.2 F 99.2 F 99.4 F Pulse Rate Respiratory 16 20 18 Rate Blood Pressure 131/86 116/79 110/73 O2 Sat by Pulse Oximetry (%) 01/07/17 01/07/17 01/07/17 15:30 18:00 22:00 Temperature 98.2 F 97.7 F 98.2 F Pulse Rate Respiratory 18 20 14 Rate Blood Pressure 119/75 122/69 114/69 O2 Sat by Pulse Oximetry (%) 01/08/17 01/08/17 01/09/17 06:00 14:41 02:03 Temperature 98.1 F 98.9 F 99.4 F Pulse Rate Respiratory 16 20 20 Rate Blood Pressure 108/53 107/64 109/63 O2 Sat by Pulse Oximetry (%) 01/09/17 01/09/17 06:00 10:00 Temperature 98.1 F 98.6 F Pulse Rate Respiratory 20 18 Rate Blood Pressure 112/70 109/64 O2 Sat by Pulse Oximetry (%) Laboratory Tests 12/29/16 12/29/16 12/29/16 01:33 01:33 01:33 WBC Hgb Hct 32.2 L RDW Neutrophils % INR 1.61 H Sodium 132 L Potassium 3.5 Chloride BUN Creatinine Iron TIBC Iron Saturation Alkaline Phosphatase C-Reactive Protein Total Protein Albumin 12/29/16 12/30/16 12/30/16 16:30 06:00 06:00 WBC Hgb 9.6 L Hct 28.3 L RDW Neutrophils % INR Sodium 138 Potassium 3.2 L Chloride BUN Creatinine Iron 13 L TIBC 169 L Iron Saturation 8 L Alkaline Phosphatase C-Reactive Protein Total Protein Albumin 12/31/16 12/31/16 01/01/17 06:00 06:00 07:40 WBC Hgb 10.2 L Hct 30.8 L RDW Neutrophils % INR Sodium 141 143 Potassium 3.4 L 3.1 L Chloride 109 H 109 H BUN 4 L 4 L Creatinine 0.5 L 0.4 L Iron TIBC Iron Saturation Alkaline Phosphatase C-Reactive Protein Total Protein Albumin 01/01/17 01/01/17 01/02/17 07:40 07:40 06:15 WBC Hgb 9.6 L 8.9 L Hct 28.1 L 26.2 L RDW Neutrophils % INR 1.66 H Sodium Potassium Chloride BUN Creatinine Iron TIBC Iron Saturation Alkaline Phosphatase C-Reactive Protein Total Protein Albumin 01/02/17 01/02/17 01/03/17 06:15 06:15 06:58 WBC Hgb Hct RDW Neutrophils % INR 1.53 H Sodium Potassium 2.9 L* Chloride BUN 3 L D Creatinine 0.4 L Iron TIBC Iron Saturation Alkaline Phosphatase 33 L D C-Reactive Protein 11.1 H D Total Protein 5.1 L D Albumin 1.8 L D 01/04/17 01/04/17 01/04/17 07:35 07:35 07:35 WBC Hgb 9.3 L Hct 28.6 L RDW 15.8 H Neutrophils % INR Sodium Potassium Chloride BUN 4 L D Creatinine 0.3 L D Iron TIBC Iron Saturation Alkaline Phosphatase 41 L D C-Reactive Protein 5.8 H D Total Protein 5.6 L Albumin 1.9 L 01/05/17 01/05/17 01/06/17 07:20 07:20 06:50 WBC 11.1 H 13.2 H Hgb 8.6 L 8.6 L Hct 25.9 L 26.3 L RDW Neutrophils % 83.2 H 87.6 H INR Sodium 144 Potassium 4.3 Chloride BUN 7 D Creatinine 0.3 L Iron TIBC Iron Saturation Alkaline Phosphatase C-Reactive Protein 2.6 H D Total Protein Albumin 01/06/17 01/07/17 01/07/17 06:50 07:15 07:15 WBC 17.7 H D Hgb Hct RDW Neutrophils % 87.6 H INR Sodium 144 145 Potassium 4.1 3.7 Chloride BUN 8 8 Creatinine 0.5 L D 0.4 L Iron TIBC Iron Saturation Alkaline Phosphatase C-Reactive Protein Total Protein Albumin 01/08/17 01/08/17 01/09/17 06:00 07:00 05:47 WBC Hgb 6.8 L* D Hct RDW Neutrophils % INR Sodium 143 144 Potassium 3.2 L 3.6 Chloride BUN 7 10 D Creatinine 0.4 L 0.5 L D Iron TIBC Iron Saturation Alkaline Phosphatase C-Reactive Protein Total Protein Albumin 01/09/17 05:47 WBC Hgb 8.7 L D Hct 26.2 L RDW Neutrophils % INR Sodium Potassium Chloride BUN Creatinine Iron TIBC Iron Saturation Alkaline Phosphatase C-Reactive Protein Total Protein Albumin MICROBIOLOGY AND IMAGING 12/29/16: Abdomen/Pelvis CT: nonspecific colitis; concentric wall thickening in colon, no definite pericolonic edema or fluid is noted, probable rectal involvement 12/30/16: Repeat abdomen/pelvis CT: no pneumoperitoneum noted 12/30/16-01/01/17: Stool shiga toxin, norovirus, blood cultures, C. diff antigen: negative 12/31/16: STOOL CX: MRSA, most likely colonization 01/03/17: Flexible sigmoidoscopy: results consistent with ulcerative colitis 01/03/17: COLON FLUID: no growth of campylobacer, yersinia, or E.coli 0157 HOSPITAL COURSE: Date of Admission:12/29/16 Date of Discharge: 01/09/17 Admit diagnosis: sepsis secondary to colitis Pre-admission course 21 y/o F with no significant PMH presents to ED with diarrhea for 1 week. As per pt, she ate at [facility] last (12/19). On Friday, she started having bloody bowel movements (7-8x daily), and felt nauseous during this time. She noted BRB on toilet paper when wiping and in toilet bowl. On Friday, pt went to [facility] since her symptoms had not subsided, and was dx there with food poisoning. She was discharged with antibiotics and pain medications, which she took for the subsequent 3 days following. This past (12/26), pt began to have cramping in her lower abdomen which was constant and a 10/10. Pt's LMP was 1 year ago, she is currently on Mirena IUD. ER course was notable for: (1) CT abdomen/pelvis: suggestive of colitis (2) Dilaudid 0.5mg IVP given twice (3) Levaquin, Flagyl for broad spectrum coverage Hospital course While on floor, pt was managed for colitis that was seen on Abdominal/Pelvis CT in ED. Initially it was thought that she had infectious colitis, as she developed symptoms after a meal at [facility]. Pt was on Levaquin and Flagyl course. Levaquin was later d/c and pt was put on Rocephin. However, pt continued to have diarrhea with loose bloody BM's and nausea/vomiting while on floor. Pt's hypokalemia from diarrhea was managed initially with IV NS with 20mEq KCl, later transitioned to KCl. Pt was eventually determined to have ulcerative colitis based on flex sig. At this pt, abx were d/c. Her CRP was elevated at 11.1 and she was managed on Asacol 800 mg TID, prednisone 40mg PO daily (initially was on hydrocortisone rectally 100mg), ferrous sulfate 235 mg PO daily, calcium 500mg/vitamin D 1 tablet BID, Vitamin C 500mg PO daily. Pt also initially completed cortenemas (100 mg q8h), however these were stopped as they increased pt's abdominal discomfort. Pt was seen by GI throughout her hospitalization and will continue f/u on discharge. Pt's H&H was inconsistent throughout admission, however towards the end of the month, it continued to drop, eventually reaching Hb of 6.8. At this point, pt was transfused 1 unit of PRBC's. After transfusion, her Hb trended up to 10.1 and was at a level of 8.7 before her discharge. During her stay on floor, there was also concern for possible pneumoperitoneum as pt's abdomen was distended and she had severe amount of pain. However, stat CT on 12/30 suggested no pneumoperitoneum was present and no surgical intervention was needed. Pt also had positive MRSA stool culture, however this was most likely d/t colonization. Minutes to complete discharge: 32 Discharge Summary Reason For Visit: COLITIS,RECTAL BLEEDING Condition: Stable - Instructions Diet, Activity, Other Instructions: You were recently in the hospital since your colon was inflamed. Testing revealed that you have ulcerative colitis. Please continue the following medications at home: -Mesalamine (Asacol) 800 mg (1 tablet) three times a day by mouth -Prednisone (Deltasone) 40 mg (2 tablets-each is 20mg) by mouth daily -Ferrous sulfate 325mg (1 tablet) by mouth daily. This can may make your stool appear dark. -Calcium 500 mg/Vitamin D- 1 tablet twice a day by mouth -Vitamin C 500mg (1 capsule) by mouth daily. Please take this with the iron pill (Ferrous sulfate) to help its absorption. We would like you to follow-up with the GI doctor, Dr. Mariano in 1 week. Please call and make an appointment with Dr. Mariano at this phone number: [phone]. Dr. Jarvis is out of the office this week, but you may follow with him after. We would also like you to follow-up with your primary care doctor in a week. If you develop shortness of breath, chest pain, become dizzy or feel lightheaded , please go to the hospital. We hope you feel better soon. Referrals: Tahir Mariano MD [Staff Physician] - Chente Jones MD [Staff Physician] - Disposition: HOME - Home Medications Comprehensive Discharge Medication List: Ambulatory Orders Acetaminophen [Tylenol .Regular Strength -] 650 mg PO Q4H PRN #0 tablet Ascorbic Acid [Vitamin C -] 500 mg PO DAILY #30 tablet 01/09/17 Calcium 500Mg/Vit-D 200 Units [Os-Jasson 500+D -] 1 tab PO BID #60 tablet 01/09/17 Ferrous Sulfate [Feosol] 325 mg PO DAILY #30 tab 01/09/17 Mesalamine [Asacol HD -] 800 mg PO TID #90 tab 01/09/17 Prednisone [Deltasone -] 40 mg PO DAILY #60 tablet 01/09/17 This patient is new to me today: No Emergency Visit: No Critical Care patient: No - Discharge Referral Referred to [facility] No
== END 2017-01-09 16:03 | disposition home or self-care (01) | DRG 872 ==
LOC: JER 21:30 → JERBED 12-29 06:42 → J5S 12-29 08:28
PROVIDERS: ADMIT Internal Medicine; ATTEND Internal Medicine
PROC: 0DBQ8ZX Excision of Anus, Via Natural or Artificial Opening Endoscopic, Diagnostic (ICD-10-PCS; principal; 2017-01-03 12:00)
PROC: 30233N1 Transfusion of Nonautologous Red Blood Cells into Peripheral Vein, Percutaneous Approach (ICD-10-PCS; 2017-01-08)
DX: A41.9 Sepsis, unspecified organism (principal); K51.90 Ulcerative colitis, unspecified, without complications; K62.5 Hemorrhage of anus and rectum; D62 Acute posthemorrhagic anemia; R31.9 Hematuria, unspecified; K64.4 Residual hemorrhoidal skin tags; Z51.89 Encounter for other specified aftercare; E87.6 Hypokalemia; L29.2 Pruritus vulvae; E83.51 Hypocalcemia; T38.0X5A Adverse effect of glucocorticoids and synthetic analogues, initial encounter; D72.828 Other elevated white blood cell count
CPT/HCPCS: 36415; 36430; 74176-TC; 74177-TC; 80048; 80053; 80076; 81003; 81015; 82272; 82542; 82728; 83520; 83540; 83550; 83605; 83690; 83735; 84100; 84703; 85025; 85027; 85044; 85610; 85651; 85730; 86140; 86256; 86480; 86671; 86704; 86706; 86708; 86803; 86850; 86900; 86901; 86922; 87040; 87045; 87046; 87086; 87177; 87186; 87205; 87209; 87324; 87340; 87389; 87425; 87427; 87449; 87798; 88305-TC; 99282-25; J1644; P9038; P9058

== ENCOUNTER 2018-01-22 16:33 | Emergency (ER) | payer BC, OTHER ==
[2018-01-22] MEDS ORDERED: ACETAMINOPHEN 325 MG TABLET (FP) PO ONE (16:45)
[2018-01-22 16:46] VITALS: BMI 21.6
--- NOTE | 2018-01-22 16:46 | PDOC ---
Rapid Medical Evaluation Time Seen by Provider: 01/22/18 16:41 Medical Evaluation: Allergies Allergy/AdvReac Type Severity Reaction Status Date / Time No Known Allergies Allergy Verified 12/28/16 21:37 I have performed a brief in-person evaluation of this patient. The patient presents with a chief complaint of: fever x 3 days with minor cough. Highest was 103.1. Left lower abdominal pain. Hx of UC. No diarrhea Pertinent physical exam findings: none I have ordered the following: labs, UA/culture/hcg The patient will proceed to the ED for further evaluation. Discharge Disposition - Diagnosis Abdominal pain, Fever - Referrals - Patient Instructions - Post Discharge Activity
[2018-01-22] MEDS ORDERED: ACETAMINOPHEN 325 MG TABLET (FP) ONE (17:00)
--- NOTE | 2018-01-22 17:07 | PDOC ---
History of Present Illness - General Chief Complaint: Pain Stated Complaint: FLARE UP abd pain , hx of u.colitis Time Seen by Provider: 01/22/18 16:41 - History of Present Illness Initial Comments: 23 year old female with recent diagnosis of ulcerative colitis (<1 year prior) presenting with fever, nausea, vomiting, abdominal pain, and malodorous urine for the past few days. States that she has only had the initial episode of UC and it was treated with steroids and she was subsequently placed on a controller medication. She was symptom free until a few days ago. Describes her abdominal pain as left sided and crampy. Hasn't been able to measure her temperature at home but states she feels very warm and occasionally has chills. Denies any chest pain, SOB, or other symptoms. Past History - Past Medical History Allergies/Adverse Reactions: Allergies Allergy/AdvReac Type Severity Reaction Status Date / Time No Known Allergies Allergy Verified 01/22/18 16:41 Home Medications: Ambulatory Orders Acetaminophen [Tylenol .Regular Strength -] 650 mg PO Q4H PRN #0 tablet Ascorbic Acid [Vitamin C -] 500 mg PO DAILY #30 tablet 01/10/17 Calcium 500Mg/Vit-D 200 Units [Os-Jasson 500+D -] 1 tab PO BID #60 tablet 01/10/17 Ferrous Sulfate [Feosol] 325 mg PO DAILY #30 tab 01/10/17 Mesalamine [Asacol HD -] 800 mg PO TID #90 tab 01/10/17 Cephalexin Monohydrate [Keflex -] 500 mg PO BID #14 capsule 01/22/18 COPD: No GI Disorders: Yes (ulcerative colitis) - Suicide/Smoking/Psychosocial Hx Smoking History: Never smoked Have you smoked in the past 12 months: No Information on smoking cessation initiated: No Hx Alcohol Use: No Drug/Substance Use Hx: No Substance Use Type: None Review of Systems - Review of Systems Constitutional: Yes: Chills, Fever. No: Weakness HEENTM: No: Blurred Vision, Tearing Respiratory: No: Cough, Shortness of Breath, Wheezing Cardiac (ROS): No: Chest Pain, Irregular Heart Rate, Lightheadedness ABD/GI: Yes: Nausea, Poor Appetite, Vomiting. No: Diarrhea, Rectal Bleeding : Yes: Frequency, Other (malodorous urine). No: Burning, Dysuria, Discharge Musculoskeletal: No: Back Pain, Joint Pain, Muscle Weakness Integumentary: No: Bruising, Erythema, Flushing, Lesions Neurological: No: Headache, Numbness, Paresthesia Psychiatric: No: Anxiety, Depression Endocrine: No: Excessive Sweating, Flushing, Intolerance to Cold Hematologic/Lymphatic: No: Anemia, Blood Clots, Easy Bleeding *Physical Exam - Vital Signs Last Vital Signs Temp Pulse Resp BP Pulse Ox 101.6 F H 109 H 18 107/49 100 01/22/18 16:42 01/22/18 16:42 01/22/18 16:42 01/22/18 16:42 01/22/18 16:42 - Physical Exam General Appearance: Yes: Nourished, Appropriately Dressed. No: Apparent Distress HEENT: positive: EOMI, AKASH, Normal ENT Inspection, Normal Voice Neck: positive: Trachea midline, Normal Thyroid, Supple. negative: Tender, Rigid Respiratory/Chest: positive: Lungs Clear, Normal Breath Sounds. negative: Chest Tender, Respiratory Distress Cardiovascular: positive: Regular Rhythm, Tachycardia. negative: Regular Rate Gastrointestinal/Abdominal: positive: Normal Bowel Sounds, Tender (very mild left mid abdominla and left lower quadrant tenderness), Flat, Soft Lymphatic: negative: Adenopathy, Tenderness Musculoskeletal: positive: Normal Inspection. negative: Decreased Range of Motion Extremity: positive: Normal Capillary Refill, Normal Inspection, Normal Range of Motion. 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 Highest suspicion is for UTI as abdominal exam is almost benign. Will defer imaging until urine and other labs return. Patient signed out to Dr. Talley in stable condition. *DC/Admit/Observation/Transfer Diagnosis at time of Disposition: Abdominal pain Qualifiers: Abdominal location: lower abdomen, unspecified Qualified Code(s): R10.30 - Lower abdominal pain, unspecified Fever Qualifiers: Fever type: due to other condition Qualified Code(s): R50.81 - Fever presenting with conditions classified elsewhere - Discharge Dispostion Disposition: HOME Condition at time of disposition: Good - Prescriptions Prescriptions: Cephalexin Monohydrate [Keflex -] 500 mg PO BID #14 capsule - Referrals - Patient Instructions Printed Discharge Instructions: DI for Urinary Tract Infection (UTI) Additional Instructions: Please return if you have any new, worsening or concerning symptoms. Please follow up with your PCP this week. - Post Discharge Activity
[2018-01-22] MEDS ORDERED: ONDANSETRON 4 MG/2 ML VIAL IVPUSH ONE (17:08)
[2018-01-22] MEDS ORDERED: ACETAMINOPHEN 1000 MG/100 ML VIAL (NON FORMULARY) IVPB ONE (17:08)
[2018-01-22] MEDS ORDERED: ONDANSETRON 4 MG/2 ML VIAL ONE (17:12)
[2018-01-22] MEDS ORDERED: ACETAMINOPHEN INJECTION 100 ML IVPB ONE (17:12)
[2018-01-22 17:18] LABS: BASO % 0.5 % (0-2.0); EOS % 0.1 % (0-4.5); HEMATOCRIT 39.1 % (32.4-45.2); HEMOGLOBIN 13.6 GM/dL (10.7-15.3); LYMPH % 11.3 % (8-40); MCH 31.2 pg (25.7-33.7); MCHC 34.8 g/dl (32.0-36.0); MEAN CELL VOLUME 89.7 fl (80-96); MEAN PLT VOLUME 9.5 fl (7.5-11.1); MONO % 12.3 % (3.8-10.2); NEUT % 75.8 % (42.8-82.8); PLATELET COUNT 217 K/MM3 (134-434); RBC 4.36 M/mm3 (3.60-5.2); RDW 14.6 % (11.6-15.6); WHITE BLOOD COUNT 8.6 K/mm3 (4.0-10.0)
[2018-01-22 17:42] LABS: ALBUMIN 3.9 g/dl (3.4-5.0); ANION GAP 10 MMOL/L (8-16); BILIRUBIN,TOTAL 0.7 mg/dL (0.2-1.0); CHLORIDE 104 mmol/L (98-107); CO2 24 mmol/L (21-32); CREATININE 0.8 mg/dL (0.55-1.02); GLUCOSE,RANDOM 89 mg/dL (74-106); SODIUM 138 mmol/L (136-145); TOT PROT 8.3 g/dl (6.4-8.2)
[2018-01-22 17:46] LABS: ALK PHOS 75 U/L (45-117); BLOOD UREA NITROGEN 11 mg/dL (7-18); SGPT/ALT 16 U/L (12-78)
[2018-01-22 17:54] LABS: POTASSIUM 4.8 mmol/L (3.5-5.1); SGOT/AST 27 U/L (15-37)
[2018-01-22] MEDS ORDERED: SODIUM CHLORIDE 0.9% 500 ML INFUS.BAG IV ONE (18:31)
--- NOTE | 2018-01-22 18:40 | PDOC ---
Attending Attestation - Resident Resident Name: Dora Andersen - ED Attending Attestation I have performed the following: I have examined & evaluated the patient, The case was reviewed & discussed with the resident, I agree w/resident's findings & plan, Exceptions are as noted - HPI HPI: 01/22/18 18:32 23y F hx of UC on asacol presents with complaint of subjective fever, and L flank pain x 2 days. Pt notes some nausea/vomiting today associated with foul smelling urine today but denies any dysuria. pt denies any diarrhea, cough, sob. on exam pt well appearing in no distress pulm exam: cta b/l cardiac exam: rrr, no mrg abd: soft nontender, no rebound/guarding +L cva tenderness ddx: ?uti/pyelo will ck labs, ua will reassess no focal abd tenderness to sgugesti colitis/uc flare - Physicial Exam PE: 01/31/18 08:34 see above - Medical Decision Making 01/22/18 19:32 pt signed out to evening team to reassess pt
--- NOTE | 2018-01-22 19:38 | PDOC ---
*Physical Exam - Vital Signs Last Vital Signs Temp Pulse Resp BP Pulse Ox 101.6 F H 109 H 18 107/49 100 01/22/18 16:42 01/22/18 16:42 01/22/18 16:42 01/22/18 16:42 01/22/18 16:42 - Physical Exam Comments: 01/22/18 19:38 GENERAL: Awake, alert, and fully oriented, in no acute distress ABDOMEN: Soft, +suprapubic tenderness, normoactive bowel sounds. No guarding, no rebound. No masses EXTREMITIES: Normal inspection, Normal range of motion, no edema. No clubbing or cyanosis. NEUROLOGICAL: Cranial nerves II through XII grossly intact. Normal speech, no focal sensorimotor deficits SKIN: Warm, Dry, normal turgor, no rashes or lesions noted. ED Treatment Course - LABORATORY CBC & Chemistry Diagram: 01/22/18 16:45 01/22/18 16:45 - ADDITIONAL ORDERS Additional order review: Laboratory Results 01/22/18 01/22/18 16:45 16:45 Sodium 138 Potassium 4.8 Chloride 104 Carbon Dioxide 24 Anion Gap 10 BUN 11 Creatinine 0.8 Creat Clearance w eGFR > 60 Random Glucose 89 Lactic Acid 0.7 Calcium 9.0 Total Bilirubin 0.7 AST 27 ALT 16 Alkaline Phosphatase 75 Total Protein 8.3 H Albumin 3.9 01/22/18 16:45 RBC 4.36 MCV 89.7 MCHC 34.8 RDW 14.6 MPV 9.5 Neutrophils % 75.8 Lymphocytes % 11.3 D Monocytes % 12.3 H D Eosinophils % 0.1 D Basophils % 0.5 - Medications Given in the ED: ED Medications Discontinued Medications Generic Name Dose Route Start Last Admin Trade Name Luisitoq PRN Reason Stop Dose Admin Acetaminophen 650 mg 01/22/18 16:45 01/22/18 17:12 Tylenol - PO 01/22/18 16:46 Not Given ONCE ONE Acetaminophen 1,000 mg 01/22/18 17:08 01/22/18 17:13 Ofirmev Injection - IVPB 01/22/18 17:09 1,000 mg ONCE ONE Administration Ondansetron HCl 4 mg 01/22/18 17:08 01/22/18 17:13 Zofran Injection IVPUSH 01/22/18 17:09 4 mg ONCE ONE Administration Sodium Chloride 1,000 ml 01/22/18 18:31 01/22/18 18:33 Normal Saline - IV 01/22/18 18:32 1,000 ml ONCE ONE Administration Medical Decision Making - Medical Decision Making 01/22/18 19:[address] Andersen. Patient is 23F with history of UC here today with suprapubic pain. Vital signs notable for fever and tachycardia. Labs normal, pending UA. If UA is positive, will start abx and d/c. If negative, will CT scan. 01/22/18 20:46 UA shows UTI. Now afebrile with normal HR. Appears well, tolerating PO. Asking to go home. Given keflex. Given return precautions. Instructed to f/u with pcp. *DC/Admit/Observation/Transfer Diagnosis at time of Disposition: Abdominal pain, Fever - Discharge Dispostion Disposition: HOME Condition at time of disposition: Good Decision to Admit order: No - Prescriptions Prescriptions: Cephalexin Monohydrate [Keflex -] 500 mg PO BID #14 capsule - Referrals - Patient Instructions Printed Discharge Instructions: DI for Urinary Tract Infection (UTI) Additional Instructions: Please return if you have any new, worsening or concerning symptoms. Please follow up with your PCP this week. - Post Discharge Activity
[2018-01-22 20:30] VITALS: BP 97/62; PULSE 87; TEMP 99.3
[2018-01-22 20:38] LABS: URINE APPEARANCE CLOUDY; URINE BILIRUBIN NEGATIVE (<2.0 mg/dL); URINE COLOR YELLOW; URINE GLUCOSE (UA) NEGATIVE (NEGATIVE); URINE KETONE NEGATIVE (NEGATIVE); URINE NITRITE NEGATIVE (NEGATIVE); URINE UROBILINOGEN NEGATIVE mg/dL (0.2-1.0)
[2018-01-22 20:40] LABS: URINE LEUK ESTERASE 3+ (NEGATIVE); URINE PROTEIN 1+ (NEGATIVE)
[2018-01-22 20:41] LABS: HCG,QUALITATIVE URINE Negative
[2018-01-22] MEDS ORDERED: CEPHALEXIN MONOHYDRATE 500 MG CAPSULE (UD) PO ONE (20:44)
[2018-01-22 20:50] LABS: EPI CELLS RARE /HPF (FEW); URINE BACTERIA RARE /hpf (NONE SEEN); URINE MUCUS RARE
[2018-01-22] MEDS ORDERED: CEPHALEXIN MONOHYDRATE 500 MG CAPSULE (UD) ONE (20:58)
== END 2018-01-22 21:02 | disposition home or self-care (01) ==
LOC: JER 16:33
PROC: 3E033GC Introduction of Other Therapeutic Substance into Peripheral Vein, Percutaneous Approach (ICD-10-PCS; principal; 2018-01-22)
PROC: 3E033NZ Introduction of Analgesics, Hypnotics, Sedatives into Peripheral Vein, Percutaneous Approach (ICD-10-PCS; 2018-01-22)
DX: R50.9 Fever, unspecified (principal); R10.30 Lower abdominal pain, unspecified
CPT/HCPCS: 36415; 80053; 81003; 81015; 83605; 84703; 85025; 87040; 87086; 87186; 99284-25; J0131

== ENCOUNTER 2018-09-24 16:36 | Emergency (ER) | payer BC, OTHER ==
[2018-09-24 16:54] VITALS: BMI 24.0
--- NOTE | 2018-09-24 16:55 | PDOC ---
Rapid Medical Evaluation Chief Complaint: Pain Time Seen by Provider: 09/24/18 16:50 Medical Evaluation: Allergies Allergy/AdvReac Type Severity Reaction Status Date / Time No Known Allergies Allergy Verified 09/24/18 16:50 09/24/18 16:51 23 year 10 week female c/o lower abdominal pain and blood in stool. history of ulcerative colitis Pe: patient alert ox3. A: abdominal pain P: labs stool guaiac ua patient to the ER for further management. Discharge Disposition - Diagnosis Abdominal pain Qualifiers: Abdominal location: lower abdomen, unspecified Qualified Code(s): R10.30 - Lower abdominal pain, unspecified - Referrals - Patient Instructions - Post Discharge Activity
[2018-09-24 18:22] LABS: BASO % 0.5 % (0-2.0); HEMATOCRIT 35.4 % (32.4-45.2); HEMOGLOBIN 12.1 GM/dL (10.7-15.3); LYMPH % 20.1 % (8-40); MCH 30.7 pg (25.7-33.7); MCHC 34.2 g/dl (32.0-36.0); MEAN CELL VOLUME 89.7 fl (80-96); MONO % 17.2 % (3.8-10.2); NEUT % 60.2 % (42.8-82.8); PLATELET COUNT 211 K/MM3 (134-434); RBC 3.95 M/mm3 (3.60-5.2); RDW 13.1 % (11.6-15.6); WHITE BLOOD COUNT 5.5 K/mm3 (4.0-10.0)
[2018-09-24] MEDS ORDERED: SODIUM CHLORIDE 1,000 ML IV STA (18:24)
[2018-09-24] MEDS ORDERED: ACETAMINOPHEN 1000 MG/100 ML VIAL (NON FORMULARY) IVPB ONE (18:24)
--- NOTE | 2018-09-24 18:24 | PDOC ---
History of Present Illness - General Chief Complaint: Pain, Acute Stated Complaint: 10 W PREG/ PAIN Time Seen by Provider: 09/24/18 16:50 History Source: Patient - History of Present Illness Timing/Duration: reports: constant Quality: reports: moderate Past History - Past Medical History Allergies/Adverse Reactions: Allergies Allergy/AdvReac Type Severity Reaction Status Date / Time No Known Allergies Allergy Verified 09/24/18 16:50 Home Medications: Ambulatory Orders Acetaminophen [Tylenol .Regular Strength -] 650 mg PO Q4H PRN #0 tablet Ascorbic Acid [Vitamin C -] 500 mg PO DAILY #30 tablet 01/10/17 Calcium 500Mg/Vit-D 200 Units [Os-Jasson 500+D -] 1 tab PO BID #60 tablet 01/10/17 Ferrous Sulfate [Feosol] 325 mg PO DAILY #30 tab 01/10/17 Mesalamine [Asacol HD -] 800 mg PO TID #90 tab 01/10/17 Cephalexin Monohydrate [Keflex -] 500 mg PO BID #14 capsule 01/22/18 COPD: No GI Disorders: Yes (ulcerative colitis) - Immunization History Immunization Up to Date: Yes - Suicide/Smoking/Psychosocial Hx Smoking History: Never smoked Have you smoked in the past 12 months: No Hx Alcohol Use: No Drug/Substance Use Hx: No Substance Use Type: None Review of Systems - Review of Systems Constitutional: No: Chills, Fever ABD/GI: Yes: Blood Streaked Bowels, Diarrhea, Abdominal cramping. No: Nausea, Vomiting : No: Burning, Dysuria, Discharge, Flank Pain, Hematuria *Physical Exam - Vital Signs Last Vital Signs Temp Pulse Resp BP Pulse Ox 98.4 F 89 18 107/63 100 09/24/18 16:51 09/24/18 16:51 09/24/18 16:51 09/24/18 16:51 09/24/18 16:51 - Physical Exam General Appearance: Yes: Appropriately Dressed. No: Apparent Distress HEENT: positive: Normal Voice Neck: positive: Supple Respiratory/Chest: negative: Respiratory Distress Gastrointestinal/Abdominal: positive: Soft. negative: Tender Musculoskeletal: negative: CVA Tenderness Integumentary: positive: Dry, Warm Neurologic: positive: Fully Oriented, Alert, Normal Mood/Affect ED Treatment Course - LABORATORY CBC & Chemistry Diagram: 09/24/18 18:06 09/24/18 17:51 Medical Decision Making - Medical Decision Making 09/24/18 18:19 23 yo F, h/o UC (no surgeries, on asacol, f/u [facility] of GI), , currently 10 weeks (s/p US 2 weeks ago confirming IUP but does not remember if there was FHR), here w/ lower abd cramping x 2 days ago that feels like her UC flare but worse this time. Also reports 2-3 e/o bloody diarrhea since last night. No n/v/f/c. Have not been taking her asacol for 3 months mostly because she is not sure if meds is safe in . Due to see her OB for the first time next week. Also has upcoming appt w/ her GI. No vag bleed or dysuria See exam ?UC flare vs abd pain of No surgeries for US Not currently taking asacol due to current preg (s/p confirmed IUP on US > 2 weeks ago -pain control -labs -US -?CT -reassess 09/24/18 18:50 Labs remarkable for uti. No flank pain, n/v/f/c to suggest pyelo. Will give dose of macrobid here (prior sensitivities reviewed). Pt signed out to night team pending rest of w/u and dispo 09/24/18 18:51 *DC/Admit/Observation/Transfer Diagnosis at time of Disposition: Abdominal cramping UTI (urinary tract infection) Qualifiers: Urinary tract infection type: site unspecified Hematuria presence: without hematuria Qualified Code(s): N39.0 - Urinary tract infection, site not specified - Referrals - Patient Instructions - Post Discharge Activity
[2018-09-24] MEDS ORDERED: ACETAMINOPHEN INJECTION 100 ML IVPB ONE (18:41)
[2018-09-24 18:44] LABS: EPI CELLS 3.8 /HPF (0-5/HPF); URINE APPEARANCE CLOUDY; URINE BACTERIA 5660.8 /hpf (NEGATIVE); URINE BILIRUBIN NEGATIVE (NEGATIVE); URINE CASTS 7 /lpf (0-8); URINE COLOR YELLOW; URINE GLUCOSE (UA) NEGATIVE (NEGATIVE); URINE KETONE 3+ (NEGATIVE); URINE LEUK ESTERASE 1+ (NEGATIVE); URINE NITRITE POSITIVE (NEGATIVE); URINE PROTEIN NEGATIVE (NEGATIVE); URINE RBC 1 /hpf (0-4); URINE UROBILINOGEN 0.2 mg/dL (0.2-1.0); URINE WBC 24 /hpf (0-5)
[2018-09-24] MEDS ORDERED: NITROFURANTOIN MACROCRYSTAL 50 MG CAPSULE (FP) PO SCH (19:00)
[2018-09-24 19:24] LABS: ALBUMIN 3.5 g/dl (3.4-5.0); ALK PHOS 68 U/L (45-117); ANION GAP 8 MMOL/L (8-16); BILIRUBIN,TOTAL 0.5 mg/dL (0.2-1); BLOOD UREA NITROGEN 5 mg/dL (7-18); CALCIUM 8.8 mg/dL (8.5-10.1); CHLORIDE 104 mmol/L (98-107); CO2 24 mmol/L (21-32); CREATININE 0.6 mg/dL (0.55-1.3); GLUCOSE,RANDOM 73 mg/dL (74-106); LIPASE 111 U/L (73-393); POTASSIUM 4.2 mmol/L (3.5-5.1); SGOT/AST 14 U/L (15-37); SGPT/ALT 15 U/L (13-61); SODIUM 136 mmol/L (136-145); TOT PROT 7.5 g/dl (6.4-8.2)
--- NOTE | 2018-09-24 19:40 | PDOC ---
*Physical Exam - Vital Signs Last Vital Signs Temp Pulse Resp BP Pulse Ox 98.4 F 89 18 107/63 100 09/24/18 16:51 09/24/18 16:51 09/24/18 16:51 09/24/18 16:51 09/24/18 16:51 - Physical Exam Comments: 09/24/18 19:35 I assume care of this 23yo F with h/o UC and 10wks pregnnancy confirmed on U/S a week ago presenting with complains of cramping lower abd pains for 2 days and episodes of bloody diarrhea since yesterday c/w her UC flareup. Pt on Asacol for her UC which she self d/c due to . Labs pending. pelvic U/S pending to evaluate . CBC wnl. chemistry labs pending. Pt with h/o UTI which was not treated due to unable to reach pt. 1 dose of Macrobid given to pt by previous provider. Reassess after labs, IVF and U/S General Appearance: Yes: Nourished, Appropriately Dressed HEENT: positive: Normal ENT Inspection Neck: positive: Supple Respiratory/Chest: positive: Lungs Clear. negative: Respiratory Distress, Accessory Muscle Use Cardiovascular: positive: Regular Rhythm, Regular Rate Gastrointestinal/Abdominal: positive: Normal Bowel Sounds. negative: Tender, Organomegaly, Pulsatile Mass Musculoskeletal: positive: Normal Inspection Extremity: positive: Normal Capillary Refill, Normal Range of Motion Integumentary: positive: Normal Color Neurologic: positive: Fully Oriented, Alert, Normal Response, Motor Strength 5/5 ED Treatment Course - LABORATORY CBC & Chemistry Diagram: 09/24/18 18:06 09/24/18 17:51 - ADDITIONAL ORDERS Additional order review: Laboratory Results 09/24/18 09/24/18 17:51 17:51 Sodium 136 Potassium 4.2 Chloride 104 Carbon Dioxide 24 Anion Gap 8 BUN 5 L Creatinine 0.6 Creat Clearance w eGFR 123.89 Random Glucose 73 L Calcium 8.8 Total Bilirubin 0.5 AST 14 L ALT 15 Alkaline Phosphatase 68 Total Protein 7.5 Albumin 3.5 Lipase 111 Beta HCG, Quant 78067.1 Urine Color Yellow Urine Appearance Cloudy Urine pH 6.0 Ur Specific [place] 1.013 Urine Protein Negative Urine Glucose (UA) Negative Urine Ketones 3+ H Urine Blood Negative Urine Nitrite Positive H Urine Bilirubin Negative Urine Urobilinogen 0.2 Ur Leukocyte Esterase 1+ H Urine WBC (Auto) 24 Urine RBC (Auto) 1 Urine Casts (Auto) 7 U Epithel Cells (Auto) 3.8 Urine Bacteria (Auto) 5660.8 09/24/18 18:06 RBC 3.95 MCV 89.7 MCHC 34.2 RDW 13.1 D MPV 9.0 Neutrophils % 60.2 D Lymphocytes % 20.1 D Monocytes % 17.2 H Eosinophils % 2.0 D Basophils % 0.5 - Medications Given in the ED: ED Medications Discontinued Medications Generic Name Dose Route Start Last Admin Trade Name Luisitoq PRN Reason Stop Dose Admin Acetaminophen 1,000 mg 09/24/18 18:24 09/24/18 18:41 Ofirmev Injection - IVPB 09/24/18 18:25 1,000 mg ONCE ONE Administration Sodium Chloride 1,000 mls @ 1,000 mls/hr 09/24/18 18:24 09/24/18 18:41 Normal Saline - IV 09/24/18 19:23 1,000 mls/hr ASDIR STA Administration Medical Decision Making - Medical Decision Making 09/24/18 19:39 I assume care of this 23yo F with h/o UC and 10wks pregnnancy confirmed on U/S a week ago presenting with complains of cramping lower abd pains for 2 days and episodes of bloody diarrhea since yesterday c/w her UC flareup. Pt on Asacol for her UC which she self d/c due to . Labs pending. pelvic U/S pending to evaluate . CBC wnl. chemistry labs pending. Pt with h/o UTI which was not treated due to unable to reach pt. 1 dose of Macrobid given to pt by previous provider. Reassess after labs, IVF and U/S 09/24/18 22:00 chemistry labs unremarkable. transvaginal US shows live IUP of 11.1wks GA with pos FH. Patient stable for outpatient management on pepcid for GI symptoms and macrobid for UTI . Patient has apt with OB in 5 days. Pt advised to hold off UC meds and follow-up with her GI to discuss taking medication during . Patient report no pain now and stable for discharge *DC/Admit/Observation/Transfer Diagnosis at time of Disposition: Abdominal cramping UTI (urinary tract infection) Qualifiers: Urinary tract infection type: site unspecified Hematuria presence: without hematuria Qualified Code(s): N39.0 - Urinary tract infection, site not specified Ulcerative colitis, acute Qualifiers: Digestive disease complication type: unspecified complication Qualified Code(s) : K51.919 - Ulcerative colitis, unspecified with unspecified complications - Discharge Dispostion Disposition: HOME Condition at time of disposition: Stable Decision to Admit order: No - Prescriptions Prescriptions: Acetaminophen [Tylenol .Regular Strength -] 650 mg PO Q4H PRN #20 tablet PRN Reason: Fever Or Pain Famotidine [Pepcid] 40 mg PO DAILY #10 tablet Nitrofurantoin Macrocrystal [Macrodantin -] 100 mg PO BID 7 Days #14 capsule - Referrals Referrals: Corey Trevino MD [Non Staff, Medical] - - Patient Instructions Printed Discharge Instructions: Urinary Tract Infection Additional Instructions: Take medications as prescribed. Follow-up with OB as scheduled. Follow-up with your GI Dr. Rojas on management on ulcerative colitis on messalamine ( Asacol ) home medication - Post Discharge Activity
--- NOTE | 2018-09-24 20:49 | PDOC ---
*Physical Exam - Vital Signs Last Vital Signs Temp Pulse Resp BP Pulse Ox 98.4 F 89 18 107/63 100 09/24/18 16:51 09/24/18 16:51 09/24/18 16:51 09/24/18 16:51 09/24/18 16:51 ED Treatment Course - LABORATORY CBC & Chemistry Diagram: 09/24/18 18:06 09/24/18 17:51 - ADDITIONAL ORDERS Additional order review: Laboratory Results 09/24/18 09/24/18 17:51 17:51 Sodium 136 Potassium 4.2 Chloride 104 Carbon Dioxide 24 Anion Gap 8 BUN 5 L Creatinine 0.6 Creat Clearance w eGFR 123.89 Random Glucose 73 L Calcium 8.8 Total Bilirubin 0.5 AST 14 L ALT 15 Alkaline Phosphatase 68 Total Protein 7.5 Albumin 3.5 Lipase 111 Beta HCG, Quant 81159.1 Urine Color Yellow Urine Appearance Cloudy Urine pH 6.0 Ur Specific [place] 1.013 Urine Protein Negative Urine Glucose (UA) Negative Urine Ketones 3+ H Urine Blood Negative Urine Nitrite Positive H Urine Bilirubin Negative Urine Urobilinogen 0.2 Ur Leukocyte Esterase 1+ H Urine WBC (Auto) 24 Urine RBC (Auto) 1 Urine Casts (Auto) 7 U Epithel Cells (Auto) 3.8 Urine Bacteria (Auto) 5660.8 09/24/18 18:06 RBC 3.95 MCV 89.7 MCHC 34.2 RDW 13.1 D MPV 9.0 Neutrophils % 60.2 D Lymphocytes % 20.1 D Monocytes % 17.2 H Eosinophils % 2.0 D Basophils % 0.5 - Medications Given in the ED: ED Medications Discontinued Medications Generic Name Dose Route Start Last Admin Trade Name Freq PRN Reason Stop Dose Admin Acetaminophen 1,000 mg 09/24/18 18:24 09/24/18 18:41 Ofirmev Injection - IVPB 09/24/18 18:25 1,000 mg ONCE ONE Administration Sodium Chloride 1,000 mls @ 1,000 mls/hr 09/24/18 18:24 09/24/18 18:41 Normal Saline - IV 09/24/18 19:23 1,000 mls/hr ASDIR STA Administration Medical Decision Making - Medical Decision Making 09/24/18 20:48 Case discussed with JACKSON Henao Agree with assessment and plan *DC/Admit/Observation/Transfer Diagnosis at time of Disposition: Abdominal cramping UTI (urinary tract infection) Qualifiers: Urinary tract infection type: site unspecified Hematuria presence: without hematuria Qualified Code(s): N39.0 - Urinary tract infection, site not specified - Referrals - Patient Instructions - Post Discharge Activity
[2018-09-24] MEDS ORDERED: FAMOTIDINE 20 MG/50 ML IVPB 20 MG/50 ML MG IVPB ONE ×2 (21:00→21:13)
[2018-09-24] MEDS ORDERED: NITROFURANTOIN MACROCRYSTAL 50 MG CAPSULE (FP) ONE (21:12)
[2018-09-24 21:56] VITALS: BP 100/63; PULSE 81; TEMP 98.1
== END 2018-09-24 21:56 | disposition home or self-care (01) ==
LOC: JER 16:36
PROC: 3E033GC Introduction of Other Therapeutic Substance into Peripheral Vein, Percutaneous Approach (ICD-10-PCS; principal; 2018-09-24)
PROC: 3E033NZ Introduction of Analgesics, Hypnotics, Sedatives into Peripheral Vein, Percutaneous Approach (ICD-10-PCS; 2018-09-24)
DX: O26.891 Other specified pregnancy related conditions, first trimester (principal); O23.31 Infections of other parts of urinary tract in pregnancy, first trimester; O99.611 Diseases of the digestive system complicating pregnancy, first trimester; K51.90 Ulcerative colitis, unspecified, without complications; Z3A.10 10 weeks gestation of pregnancy
CPT/HCPCS: 36415; 76801-TC; 80053; 81003; 83690; 84702; 85025; 99284-25; J0131; J7030

== ENCOUNTER 2018-12-06 10:17 | Emergency (ER) | payer BC, OTHER ==
[2018-12-06 10:22] VITALS: BP 106/69; PULSE 101; TEMP 98.4; BMI 24.9
[2018-12-06] MEDS ORDERED: SODIUM CHLORIDE 1,000 ML IV STA (11:38)
[2018-12-06 12:12] LABS: WHITE BLOOD COUNT 7.5 K/mm3 (4.0-10.0)
--- NOTE | 2018-12-06 12:13 | PDOC ---
History of Present Illness - General Chief Complaint: Diarrhea Stated Complaint: 21 WKS/ FLARE UP Time Seen by Provider: 12/06/18 11:42 History Source: Patient Exam Limitations: No Limitations - History of Present Illness Initial Comments: 12/06/18 12:04 23 yo F pmh ulcerative colitis who is 21 weeks presents with 2 days of loose bloody stools, abdominal cramping, loss of appetite, and new rash on her chest. She has 4-5 bloody BMs a day. Denies new onset fever, chills, chest pain , SOB, lightheaded/dizziness, dysuria. Endorses recent ingestion of cold cuts and cheeses. Pt endorses vomiting (every morning) but states no change recently. Meds: Mesalamine NKDA No surgeries Past History - Past Medical History Allergies/Adverse Reactions: Allergies Allergy/AdvReac Type Severity Reaction Status Date / Time No Known Allergies Allergy Verified 12/06/18 10:22 Home Medications: Ambulatory Orders Mesalamine [Asacol HD -] 800 mg PO TID #90 tab 01/10/17 Anemia: Yes COPD: No GI Disorders: Yes (ulcerative colitis) - Immunization History Immunization Up to Date: Yes - Suicide/Smoking/Psychosocial Hx Smoking History: Never smoked Have you smoked in the past 12 months: No Hx Alcohol Use: No Drug/Substance Use Hx: No Substance Use Type: None Review of Systems - Review of Systems Able to Perform ROS?: Yes Is the patient limited Surinamese proficient: No Constitutional: Yes: Chills (not new. has since ), Loss of Appetite. No: Fever Respiratory: No: Shortness of Breath Cardiac (ROS): No: Chest Pain, Irregular Heart Rate, Lightheadedness, Palpitations ABD/GI: Yes: Diarrhea (hpi, bloody ), Vomiting (see hpi), Abdominal cramping ( hpi ) : No: Dysuria Neurological: No: Dizziness *Physical Exam - Vital Signs Last Vital Signs Temp Pulse Resp BP Pulse Ox 98.4 F 101 H 18 106/69 100 12/06/18 10:19 12/06/18 10:19 12/06/18 10:19 12/06/18 10:19 12/06/18 10:19 - Physical Exam Comments: 12/06/18 12:13 GEN: resting comfortably, NAD CV: S1/S2, RRR, no m/r/g LUNG: CTAB, no rales/wheezes GI: soft, nt, nd, +BS SKIN: irregular macular rash with overlying white discharge in area between breasts ED Treatment Course - LABORATORY CBC & Chemistry Diagram: 12/06/18 11:53 12/06/18 11:53 Medical Decision Making - Medical Decision Making 12/06/18 12:14 23 yo F (21 weeks) with ulcerative colitis presents with 2 days of crampy abdominal pain and bloody stool. Endorses loss of appetite and recent ingestion of cold cuts and cheeses. Denies f/c/chestpain/SOB/swelling. Rash is likely yeast infection. DDx: UC exacerbation likely; unlikely listeria, gastroenteritis - CBC, CMP, lipase, type and screen - UA - IV - Fluids - c/s GI - nystatin for rash Dispo: Transfer to tertiary center 12/06/18 13:11 Labs reviewed Spoke with Dr. Jarvis (GI on-call) - recommended patient transfer to tertiary care center due to high risk . Does not recommend starting steroids at this moment. 12/06/18 15:08 Message received from lab re: CBC manual diff not available at this timestamp. 12/06/18 16:03 US reviewed, spoke to M at [facility] who accepted patient (Dr. Petersen) Ambulance transport pending. 12/06/18 19:01 Ambulance transport completed. *DC/Admit/Observation/Transfer Diagnosis at time of Disposition: Second trimester Ulcerative colitis, acute Qualifiers: Digestive disease complication type: without complication Qualified Code(s): K51.90 - Ulcerative colitis, unspecified, without complications - Discharge Dispostion Disposition: TRANSFER ACUTE CARE/OTHER HOSP Condition at time of disposition: Guarded - Referrals Referrals: ON STAFF,NOT [Primary Care Provider] - - Patient Instructions - Post Discharge Activity - Transfer to Acute Care Facility Receiving Facility: [facility]. Accepting Physician:: Dr. Petersen
[2018-12-06 12:38] LABS: ALBUMIN 2.9 g/dl (3.4-5.0); BILIRUBIN,TOTAL 0.3 mg/dL (0.2-1); BLOOD UREA NITROGEN 4.6 mg/dL (7-18); CALCIUM 8.3 mg/dL (8.5-10.1); CREATININE 0.5 mg/dL (0.55-1.3); POTASSIUM 3.7 mmol/L (3.5-5.1); TOT PROT 7.1 g/dl (6.4-8.2)
[2018-12-06 12:39] LABS: BASO % 0.4 % (0-2.0); EOS % 4.8 % (0-4.5); HEMATOCRIT 32.8 % (32.4-45.2); LYMPH % 16.6 % (8-40); MCH 30.5 pg (25.7-33.7); MCHC 33.6 g/dl (32.0-36.0); MEAN CELL VOLUME 90.6 fl (80-96); MEAN PLT VOLUME 9.4 fl (7.5-11.1); MONO % 21.4 % (3.8-10.2); NEUT % 56.8 % (42.8-82.8); RBC 3.62 M/mm3 (3.60-5.2); RDW 12.9 % (11.6-15.6)
[2018-12-06 12:41] LABS: PLATELET COUNT 224 K/MM3 (134-434)
[2018-12-06] MEDS ORDERED: DEXTROSE 5%-LACTATED RINGERS 1,000 ML IV SCH (13:00)
[2018-12-06 13:21] LABS: URINE APPEARANCE CLEAR; URINE BILIRUBIN NEGATIVE (NEGATIVE); URINE COLOR YELLOW; URINE GLUCOSE (UA) NEGATIVE (NEGATIVE); URINE KETONE TRACE (NEGATIVE); URINE LEUK ESTERASE NEGATIVE (NEGATIVE); URINE NITRITE NEGATIVE (NEGATIVE); URINE PROTEIN NEGATIVE (NEGATIVE); URINE UROBILINOGEN 0.2 mg/dL (0.2-1.0)
--- NOTE | 2018-12-06 13:30 | PDOC ---
Documentation entered by Lelia Abdalla SCRIBE, acting as scribe for Sadia Kurtz MD. Sadia Kurtz MD: This documentation has been prepared by the Lianne duke Mackenzie, SCRIBE, under my direction and personally reviewed by me in its entirety. I confirm that the documentation accurately reflects all work , treatment, procedures, and medical decision making performed by me. Attending Attestation - Resident Resident Name: ManzanoStevie - ED Attending Attestation I have performed the following: I have examined & evaluated the patient, The case was reviewed & discussed with the resident, I agree w/resident's findings & plan, Exceptions are as noted - HPI HPI: The patient is a 23 year old female, with a significant PMH of ulcerative colitis who is 21 weeks and presents to the emergency department with 2 days of abdominal cramping, loose bloody stool, rash, and loss of appetite. Patient reports having 4/5 bloody BMs a day for the past two days. Patient also reports developing a new pustular rash on her chest. Patient notes vomiting everyday however she states this is secondary to her . The patient denies chest pain, shortness of breath, headache and dizziness. Denies fever and chills. Denies dysuria, frequency, urgency and hematuria. Allergies: NKDA Past surgical history: As per resident note Social history: None reported PCP: MANUEL 12/06/18 13:27 - Physicial Exam PE: GENERAL: Awake, alert, and fully oriented, in no acute distress. Mild pallor HEAD: No signs of trauma EYES: PERRLA, EOMI, sclera anicteric, conjunctiva clear ENT: Auricles normal inspection, hearing grossly normal, nares patent, oropharynx clear without exudates. Dry mucosa NECK: Normal ROM, supple, no lymphadenopathy, JVD, or masses LUNGS: Breath sounds equal, clear to auscultation bilaterally. No wheezes, and no crackles HEART: Regular rate and rhythm, normal S1 and S2, no murmurs, rubs or gallops ABDOMEN: Soft, nontender, normoactive bowel sounds. No guarding, no rebound. + Gravid uterus EXTREMITIES: Normal range of motion, no edema. No clubbing or cyanosis. No cords, erythema, or tenderness NEUROLOGICAL: Cranial nerves II through XII grossly intact. Normal speech, normal gait. Motor and sensation intact SKIN: Warm, dry, normal turgor. +Hyperpigmented moist rash between the breasts with white discharge. No erythema, no open lesions, no induration, no fluctuance - Medical Decision Making Pt noted to be mildly tachycardic, slightly pale, with nontender abdomen. Case d /w GI Dr. Jarvis, who recommended transfer to tertiary care center for further evaluation, as they will have MFM. He expressed concern that if her condition worsens or if she has heavy bleeding, it can complicate the , and she would be safest in a place that could properly monitor. 12/06/18 16:15 Case d/w Dr. Petersen of MFM at [facility], accepted patient to L&D for transfer.
--- NOTE | 2018-12-09 15:37 | PATH ---
Surgical Pathology Report Patient Name: DAVID GALLAGHER Med. Rec. #: [id number] /Age/Gender: 1995 (Age: 23) / F Account: [id number] Location: EMERGENCY ROOM Taken: 12/07/2018 Received: 12/07/2018 Reported: 12/09/2018 Physicians: Magaly Abdalla M.D. Specimen(s) Received 1 LAVENDER TOP Clinical History Bloody stools, , peripheral blood with immature WBC Final Diagnosis COMPREHENS[facility] [place] ([id number]) shows the following: INTERPRETATION: SLIGHTLY LEFT SHIFTED GRANULOCYTES. THE CD34+ MYELOBLASTS ARE 0.2% OF TOTAL EVENTS. MONOCYTOSIS, 15% OF TOTAL EVENTS. THERE IS NO EVIDENCE OF B OR T-CELL PROLIFERATIVE DISORDERS. Viability: 90% Phenotype: In the sample analyzed there is a mixed population of granulocytes, monocytes, and lymphoid cells. CD34+ myeloblasts are 0.2%. Granulocytes are 67% of total cells and show mild left shift. .Monocytes are 15% of total cells. There is no overt abnormal myeloid antigen expression. The B-cells (1% of total) appear polytypic. The T-cells (14% of total) show no alonso T-cell antigenic deletion. See Emerge report to ([id number]) for details. Electronically Signed Magaly Abdalla M.D.
== END 2018-12-06 19:10 | disposition short-term general hospital (02) ==
LOC: JER 10:17
PROC: 3E0337Z Introduction of Electrolytic and Water Balance Substance into Peripheral Vein, Percutaneous Approach (ICD-10-PCS; principal; 2018-12-06)
DX: O26.892 Other specified pregnancy related conditions, second trimester (principal); Z3A.21 21 weeks gestation of pregnancy; K51.90 Ulcerative colitis, unspecified, without complications
CPT/HCPCS: 36415; 76801-TC; 80053; 81003; 83690; 85025; 86850; 86900; 86901; 87077; 87086; 88300-TC; 99283-25; J7030